=== PATIENT | male | born 1955 | race Caucasian/White ===

== ENCOUNTER 2021-02-20 09:24 | Inpatient (IN) | payer MEDICARE, BC ==
[2021-02-20] MEDS ORDERED: Sodium Chloride 0.9% 10 ML Syringe FLUSH PRN (09:55)
[2021-02-20] MEDS ORDERED: Albuterol/Ipratropium 3.0-0.5 MG/3 ML Neb Soln NEB ONE (09:56)
[2021-02-20] MEDS ORDERED: Sodium Chloride 0.9% 1,000 ML IV SCH (10:00)
--- NOTE | 2021-02-20 10:19 | EDM.PDOC ---
ED HPI GENERAL MEDICAL PROBLEM - General Chief Complaint: Respiratory Problem Stated Complaint: POSS COVID COUGH Time Seen by Provider: 02/20/21 09:32 Source of Information: Reports: Patient History Limitations: Reports: No Limitations - History of Present Illness INITIAL COMMENTS - FREE TEXT/NARRATIVE: The patient presents with possible COVID 19. He says last Tuesday he lost his sense of taste and smell. He also has been coughing and short of breath. He has generalized weakness. He has a history of asthma and hypercholesterolemia. He does not smoke. His oxygen saturations were in the mid 80s. He has no nausea, vomiting or diarrhea. He has no appetite though. Onset: Gradual Duration: Week(s): Severity: Moderate Improves with: Reports: None Worsens with: Reports: None Associated Symptoms: Reports: Cough, Fever/Chills, Headaches, Shortness of Breath. Denies: Nausea/Vomiting - Related Data Allergies Allergy/AdvReac Type Severity Reaction Status Date / Time No Known Allergies Allergy Verified 02/20/21 09:51 Home Meds: Home Meds Rosuvastatin [Crestor] 5 mg PO DAILY 02/20/21 [History] Past Medical History Cardiovascular History: Reports: High Cholesterol Respiratory History: Reports: Asthma Genitourinary History: Reports: Acute Renal Failure Social & Family History - Tobacco Use Tobacco Use Status *Q: Never Tobacco User Second Hand Smoke Exposure: No - Caffeine Use Caffeine Use: Reports: Coffee - Recreational Drug Use Recreational Drug Use: No ED ROS GENERAL - Review of Systems Review Of Systems: See Below Constitutional: Reports: Fever, Chills, Malaise, Weakness, Fatigue HEENT: Reports: No Symptoms Respiratory: Reports: Shortness of Breath, Cough Cardiovascular: Reports: No Symptoms Endocrine: Reports: Fatigue GI/Abdominal: Reports: Anorexia. Denies: Abdominal Pain, Diarrhea, Nausea, Vomiting : Reports: No Symptoms Musculoskeletal: Reports: No Symptoms ED EXAM, GENERAL - Physical Exam Exam: See Below Exam Limited By: No Limitations General Appearance: Alert, No Apparent Distress Ears: Normal External Exam Nose: Normal Inspection Head: Atraumatic, Normocephalic Neck: Normal Inspection Respiratory/Chest: No Respiratory Distress, Decreased Breath Sounds Cardiovascular: Regular Rate, Rhythm, No Edema, No Murmur GI/Abdominal: Soft, Non-Tender, No Organomegaly, No Mass Back Exam: Normal Inspection Extremities: Normal Inspection Neurological: Alert, Oriented, No Motor/Sensory Deficits #1 Interpretation EKG Date: 02/20/21 Time: 09:53 Rhythm: NSR Rate (Beats/Min): 97 [place]: Normal P-Wave: Present QRS: Normal ST-T: Normal QT: Normal Course - Vital Signs Last Recorded V/S: Last Vital Signs Temp 99.4 F 02/20/21 09:44 Pulse 101 H 02/20/21 09:44 Resp 15 02/20/21 09:44 BP 140/63 02/20/21 09:44 Pulse Ox 95 02/20/21 09:56 - Orders/Labs/Meds Orders: Active Orders 24 hr Category Date Time Status Cardiac Monitoring [RC] . DIRECTED Care 02/20/21 09:55 Active Oxygen Therapy [RC] PRN Care 02/20/21 09:55 Active Peripheral IV Care [RC] . DIRECTED Care 02/20/21 09:55 Active RT Aerosol Therapy [RC] ASDIRECTED Care 02/20/21 09:56 Active Remdesivir 200 mg Med 02/20/21 12:40 Active Sodium Chloride 0.9% [Normal Saline] 250 ml IV ONETIME Sodium Chloride 0.9% [Normal Saline] 1,000 ml Med 02/20/21 10:00 Active IV .BOLUS Sodium Chloride 0.9% [Saline Flush] Med 02/20/21 09:55 Active 10 ml FLUSH ASDIRECTED PRN Peripheral IV Insertion Adult [OM.PC] Stat Oth 02/20/21 09:55 Ordered Medication Orders Sodium Chloride (Normal Saline) 1,000 mls @ 1,000 mls/hr IV .BOLUS SUPRIYA Last Admin: 02/20/21 09:40 Dose: 1,000 mls/hr Documented by: EDWARD Remdesivir 200 mg/ Sodium (Chloride) 250 mls @ 250 mls/hr IV ONETIME ONE Stop: 02/20/21 13:39 Sodium Chloride (Sodium Chloride 0.9% 10 Ml Syringe) 10 ml FLUSH ASDIRECTED PRN PRN Reason: Keep Vein Open Last Admin: 02/20/21 09:40 Dose: 10 ml Documented by: EDWARD Labs: Laboratory Tests 02/20/21 02/20/21 02/20/21 Range/Units 09:40 09:45 09:45 WBC 6.16 (4.23-9.07) K/mm3 RBC 4.51 L (4.63-6.08) M/mm3 Hgb 14.3 D (13.7-17.5) gm/dl Hct 42.4 (40.1-51.0) % MCV 94.0 H (79.0-92.2) fl MCH 31.7 (25.7-32.2) pg MCHC 33.7 (32.2-35.5) g/dl RDW Std Deviation 40.6 (35.1-43.9) fL Plt Count 194 D (163-337) K/mm3 MPV 9.0 L (9.4-12.3) fl Neut % (Auto) 90.1 H (34.0-67.9) % Lymph % (Auto) 6.7 L (21.8-53.1) % [place] % (Auto) 2.9 L (5.3-12.2) % Eos % (Auto) 0 L (0.8-7.0) Baso % (Auto) 0.0 L (0.1-1.2) % Neut # (Auto) 5.55 H (1.78-5.38) K/mm3 Lymph # (Auto) 0.41 L (1.32-3.57) K/mm3 [place] # (Auto) 0.18 L (0.30-0.82) K/mm3 Eos # (Auto) 0.00 L (0.04-0.54) K/mm3 Baso # (Auto) 0.00 L (0.01-0.08) K/mm3 PT 11.3 (9.7-12.0) SECONDS INR 1.02 APTT 41.9 H (21.7-31.4) SECONDS D-Dimer, Quantitative 1.51 H (0.19-0.50) mg/L Sodium (136-145) mEq/L Potassium (3.5-5.1) mEq/L Chloride (98-107) mEq/L Carbon Dioxide (21-32) mEq/L Anion Gap (5-15) BUN (7-18) mg/dL Creatinine (0.7-1.3) mg/dL Est Cr Clr Drug Dosing mL/min Estimated GFR (MDRD) (>60) mL/min BUN/Creatinine Ratio (14-18) Glucose (70-99) mg/dL Lactic Acid (0.4-2.0) mmol/L Calcium (8.5-10.1) mg/dL Total Bilirubin (0.2-1.0) mg/dL AST (15-37) U/L ALT (16-63) U/L Alkaline Phosphatase (46-116) U/L Troponin I (0.00-0.056) ng/mL C-Reactive Protein (<1.0) mg/dL NT-Pro-B Natriuret Pep (0-125) pg/mL Total Protein (6.4-8.2) g/dl Albumin (3.4-5.0) g/dl Globulin gm/dL Albumin/Globulin Ratio (1-2) Influenza Type A RNA Negative (NEGATIVE) Influenza Type B RNA Negative (NEGATIVE) SARS-CoV-2 RNA (YOUSUF) Positive H (NEGATIVE) 02/20/21 02/20/21 02/20/21 Range/Units 09:45 09:45 10:34 WBC (4.23-9.07) K/mm3 RBC (4.63-6.08) M/mm3 Hgb (13.7-17.5) gm/dl Hct (40.1-51.0) % MCV (79.0-92.2) fl MCH (25.7-32.2) pg MCHC (32.2-35.5) g/dl RDW Std Deviation (35.1-43.9) fL Plt Count (163-337) K/mm3 MPV (9.4-12.3) fl Neut % (Auto) (34.0-67.9) % Lymph % (Auto) (21.8-53.1) % [place] % (Auto) (5.3-12.2) % Eos % (Auto) (0.8-7.0) Baso % (Auto) (0.1-1.2) % Neut # (Auto) (1.78-5.38) K/mm3 Lymph # (Auto) (1.32-3.57) K/mm3 [place] # (Auto) (0.30-0.82) K/mm3 Eos # (Auto) (0.04-0.54) K/mm3 Baso # (Auto) (0.01-0.08) K/mm3 PT (9.7-12.0) SECONDS INR APTT (21.7-31.4) SECONDS D-Dimer, Quantitative (0.19-0.50) mg/L Sodium 137 (136-145) mEq/L Potassium 3.7 (3.5-5.1) mEq/L Chloride 99 (98-107) mEq/L Carbon Dioxide 31 (21-32) mEq/L Anion Gap 10.7 (5-15) BUN 17 (7-18) mg/dL Creatinine 1.0 (0.7-1.3) mg/dL Est Cr Clr Drug Dosing 71.68 mL/min Estimated GFR (MDRD) > 60 (>60) mL/min BUN/Creatinine Ratio 17.0 (14-18) Glucose 206 H (70-99) mg/dL Lactic Acid 1.5 (0.4-2.0) mmol/L Calcium 8.0 L (8.5-10.1) mg/dL Total Bilirubin 0.9 (0.2-1.0) mg/dL AST 87 H (15-37) U/L ALT 97 H (16-63) U/L Alkaline Phosphatase 68 (46-116) U/L Troponin I < 0.017 (0.00-0.056) ng/mL C-Reactive Protein 15.3 H* (<1.0) mg/dL NT-Pro-B Natriuret Pep 222 H (0-125) pg/mL Total Protein 6.8 (6.4-8.2) g/dl Albumin 2.7 L (3.4-5.0) g/dl Globulin 4.1 gm/dL Albumin/Globulin Ratio 0.7 L (1-2) Influenza Type A RNA (NEGATIVE) Influenza Type B RNA (NEGATIVE) SARS-CoV-2 RNA (YOUSUF) (NEGATIVE) Meds: Medications Generic Name Dose Route Start Last Admin Trade Name Freq PRN Reason Stop Dose Admin Sodium Chloride 1,000 mls @ 1,000 mls/hr 02/20/21 10:00 02/20/21 09:40 Normal Saline IV 1,000 mls/hr .BOLUS SUPRIYA Administration Remdesivir 200 mg/ Sodium 250 mls @ 250 mls/hr 02/20/21 12:40 Chloride IV 02/20/21 13:39 ONETIME ONE Sodium Chloride 10 ml 02/20/21 09:55 02/20/21 09:40 Sodium Chloride 0.9% 10 Ml Syringe FLUSH 10 ml ASDIRECTED PRN Administration Keep Vein Open Discontinued Medications Generic Name Dose Route Start Last Admin Trade Name Freq PRN Reason Stop Dose Admin Albuterol/Ipratropium 3 ml 02/20/21 09:56 02/20/21 10:24 Albuterol/Ipratropium 3.0-0.5 Mg/3 Ml Neb Soln NEB 02/20/21 09:57 3 ml ONETIME ONE Administration Dexamethasone 6 mg 02/20/21 12:15 Dexamethasone 4 Mg/Ml Sdv IVPUSH 02/20/21 12:16 ONETIME ONE Methylprednisolone Sodium Succinate 125 mg 02/20/21 12:25 Methylprednisolone Sodium Succinate 125 Mg/2 Ml Sdv IVPUSH 02/20/21 12:26 ONETIME ONE - Re-Assessments/Exams Free Text/Narrative Re-Assessment/Exam: 02/20/21 10:18 I ordered oxygen, IV NS 1L bolus, duoneb X 1, EKG, CXR, labs and COVID. His EKG shows a NSR with no acute changes. 02/20/21 12:17 His EKG shows a NSR with no acute changes. His CXR shows patchy areas of increased density within both sides of the chest. Please rule out COVID pneum onia. Heart size is slightly enlarged. His CBC looks good. His D-dimer was elevated at 1.51. This is consistent with COVID pneumonia. His glucose was elevated at 206. His lactic acid is normal. His troponin is normal. His CRP is elevated at 15.3. His BNP is elevated slightly at 222. He is confirmed COVID positive. I ordered remdesivir 200mg IV and dexamethasone 6mg IV. I talked with our hospitalist Dr Forbes and he agreed to the admission. 02/20/21 12:26 He did want solu-medrol and not dexamethasone. I have changed the orders. Departure - Departure Time of Disposition: 12:30 Disposition: Admitted As Inpatient 64 Condition: Serious Clinical Impression: Pneumonia due to COVID-19 virus, Hypoxia - Discharge Information Referrals: Juan Manuel Jesus MD [Primary Care Provider] - Forms: ED Department Discharge Sepsis Event Note (ED) - Evaluation Sepsis Screening Result: No Definite Risk - Focused Exam Vital Signs: Vital Signs Temp Pulse Resp BP Pulse Ox Pulse Ox 02/20/21 09:56 95 02/20/21 09:44 99.4 F 101 H 15 140/63 94 L - My Orders Last 24 Hours: My Active Orders 02/20/21 09:55 Cardiac Monitoring [RC] . DIRECTED Oxygen Therapy [RC] PRN Peripheral IV Care [RC] . DIRECTED Sodium Chloride 0.9% [Saline Flush] 10 ml FLUSH ASDIRECTED PRN Peripheral IV Insertion Adult [OM.PC] Stat 02/20/21 09:56 RT Aerosol Therapy [RC] ASDIRECTED 02/20/21 10:00 Sodium Chloride 0.9% [Normal Saline] 1,000 ml IV .BOLUS 02/20/21 12:40 Remdesivir 200 mg Sodium Chloride 0.9% [Normal Saline] 250 ml IV ONETIME - Assessment/Plan Last 24 Hours: My Active Orders 02/20/21 09:55 Cardiac Monitoring [RC] . DIRECTED Oxygen Therapy [RC] PRN Peripheral IV Care [RC] . DIRECTED Sodium Chloride 0.9% [Saline Flush] 10 ml FLUSH ASDIRECTED PRN Peripheral IV Insertion Adult [OM.PC] Stat 02/20/21 09:56 RT Aerosol Therapy [RC] ASDIRECTED 02/20/21 10:00 Sodium Chloride 0.9% [Normal Saline] 1,000 ml IV .BOLUS 02/20/21 12:40 Remdesivir 200 mg Sodium Chloride 0.9% [Normal Saline] 250 ml IV ONETIME
--- NOTE | 2021-02-20 10:44 | CR ---
Chest: Portable view of the chest was obtained. Comparison: No prior chest imaging is available. Heart is felt to be slightly enlarged. Tortuous thoracic aorta is noted. Patchy areas of increased density are noted within both sides of the chest. Slight degenerative change is scattered within the spine. Impression: 1. Patchy areas of increased density within both side of the chest. Please rule out COVID pneumonia. 2. Heart size is slightly enlarged. Diagnostic code #3
[2021-02-20 11:18] LABS: CORONAVIRUS COVID-19 NAA POSITIVE (NEGATIVE)
[2021-02-20] MEDS ORDERED: Dexamethasone 4 MG/ML SDV IVPUSH ONE (12:15)
[2021-02-20] MEDS ORDERED: methylPREDNISolone Sodium Succinate 125 MG/2 ML SDV IVPUSH ONE (12:25)
[2021-02-20] MEDS ORDERED: REMDESIVIR 200 MG in Sodium Chloride 0.9% 250 ML IV ONE (12:40)
--- NOTE | 2021-02-20 13:01 | PCM.HP.2 ---
H&P History of Present Illness - General Date of Service: 02/20/21 Admit Problem/Dx: Admission Diagnosis/Problem Admission Diagnosis/Problem Hypoxia Source of Information: Patient, Provider History Limitations: Reports: No Limitations - History of Present Illness Initial Comments - Free Text/Narative: Patient is a 65-year-old male with a past medical history as listed below which does include asthma who presents to the emergency department with a chief complaint of low oxygen at home. Patient states that he began to lose his sense of taste and smell roughly a week to a week and a half ago. At that point it was his only symptom. Since then he has gradually felt some heavy breathing at times mostly with activity. He has denied any chest pain, chest pressure or ple urisy. No abdominal complaints. No changes in eating habits or bowel habits. No recent sick contacts or travel. The patient is unvaccinated against COVID- 19. He has also experienced a rather dry cough and feels as if there is phlegm present but is simply incapable of coughing it up. He bought an oximeter earlier in the week and it was noted that despite his shortness of breath he was still having O2 saturations in the mid 90s. Yesterday it dropped to 91, and then today upon check he was found to be in the mid 80s. At that point he thought it best to present to the hospital for further evaluation. In the ER it was confirmed that he was COVID-19 positive. Chest x-ray was notable for bilateral infiltrates consistent with COVID-19. The patient was hypoxic and was requiring 2 to 3 L of supplemental oxygen to stay above 92%. He was not toxic appearing. Remdesivir and steroids were introduced in the emergency department before being referred to the internal medicine service for further management. A 14 point review of systems was reviewed with the patient entirely and only pertinent for the above information. CODE STATUS: Full code. - Related Data Allergies/Adverse Reactions: Allergies Allergy/AdvReac Type Severity Reaction Status Date / Time No Known Allergies Allergy Verified 02/20/21 09:51 Home Medications: Home Meds Rosuvastatin [Crestor] 5 mg PO DAILY 02/20/21 [History] Past Medical History Cardiovascular History: Reports: High Cholesterol Respiratory History: Reports: Asthma Genitourinary History: Reports: Acute Renal Failure Social & Family History - Tobacco Use Tobacco Use Status *Q: Never Tobacco User Second Hand Smoke Exposure: No - Caffeine Use Caffeine Use: Reports: Coffee - Recreational Drug Use Recreational Drug Use: No H&P Review of Systems - Review of Systems: Review Of Systems: Comprehensive ROS is negative, except as noted in HPI. Exam - Exam Exam: See Below - Vital Signs Vital Signs: Last Vital Signs Temp 99.4 F 02/20/21 09:44 Pulse 101 H 02/20/21 09:44 Resp 15 02/20/21 09:44 BP 140/63 02/20/21 09:44 Pulse Ox 95 02/20/21 09:56 Weight: 208 lb - Exam Physical Exam Comments:: General: Awake and alert, in no apparent distress. Nontoxic-appearing. HEENT: Normocephalic, atraumatic. Extra ocular muscles intact. Pupils equal and reactive to light. Nares are patent. Oropharynx clear without erythema or exudate. Tongue is midline. Wearing nasal cannula oxygen Neck: Supple without lymphadenopathy. No goiter. Trachea midline. Heart: Regular rate and rhythm. S1 and S2 heard without murmur or extrasystoles. Lungs: Diminished breath sounds but no obvious wheezing, rales or rhonchi. Nonproductive cough during interview Abdomen: Soft, nontender, nondistended. Positive bowel sounds. No CVA tenderness. No suprapubic tenderness. Extremities: Warm and perfused. No clubbing, cyanosis, or edema. Integument: No obvious rash or jaundice. No lymphadenopathy. Neurologic: Cranial nerves II through XII grossly intact. No obvious gross motor or sensory deficits. Psychiatric: Normal mood and affect. - Patient Data Lab Results Last 24 hrs: Laboratory Results - last 24 hr 02/20/21 02/20/21 02/20/21 Range/Units 09:40 09:45 09:45 WBC 6.16 (4.23-9.07) K/mm3 RBC 4.51 L (4.63-6.08) M/mm3 Hgb 14.3 D (13.7-17.5) gm/dl Hct 42.4 (40.1-51.0) % MCV 94.0 H (79.0-92.2) fl MCH 31.7 (25.7-32.2) pg MCHC 33.7 (32.2-35.5) g/dl RDW Std Deviation 40.6 (35.1-43.9) fL Plt Count 194 D (163-337) K/mm3 MPV 9.0 L (9.4-12.3) fl Neut % (Auto) 90.1 H (34.0-67.9) % Lymph % (Auto) 6.7 L (21.8-53.1) % [place] % (Auto) 2.9 L (5.3-12.2) % Eos % (Auto) 0 L (0.8-7.0) Baso % (Auto) 0.0 L (0.1-1.2) % Neut # (Auto) 5.55 H (1.78-5.38) K/mm3 Lymph # (Auto) 0.41 L (1.32-3.57) K/mm3 [place] # (Auto) 0.18 L (0.30-0.82) K/mm3 Eos # (Auto) 0.00 L (0.04-0.54) K/mm3 Baso # (Auto) 0.00 L (0.01-0.08) K/mm3 PT 11.3 (9.7-12.0) SECONDS INR 1.02 APTT 41.9 H (21.7-31.4) SECONDS D-Dimer, Quantitative 1.51 H (0.19-0.50) mg/L Sodium (136-145) mEq/L Potassium (3.5-5.1) mEq/L Chloride (98-107) mEq/L Carbon Dioxide (21-32) mEq/L Anion Gap (5-15) BUN (7-18) mg/dL Creatinine (0.7-1.3) mg/dL Est Cr Clr Drug Dosing mL/min Estimated GFR (MDRD) (>60) mL/min BUN/Creatinine Ratio (14-18) Glucose (70-99) mg/dL Lactic Acid (0.4-2.0) mmol/L Calcium (8.5-10.1) mg/dL Total Bilirubin (0.2-1.0) mg/dL AST (15-37) U/L ALT (16-63) U/L Alkaline Phosphatase (46-116) U/L Troponin I (0.00-0.056) ng/mL C-Reactive Protein (<1.0) mg/dL NT-Pro-B Natriuret Pep (0-125) pg/mL Total Protein (6.4-8.2) g/dl Albumin (3.4-5.0) g/dl Globulin gm/dL Albumin/Globulin Ratio (1-2) Influenza Type A RNA Negative (NEGATIVE) Influenza Type B RNA Negative (NEGATIVE) SARS-CoV-2 RNA (YOUSUF) Positive H (NEGATIVE) 02/20/21 02/20/21 02/20/21 Range/Units 09:45 09:45 10:34 WBC (4.23-9.07) K/mm3 RBC (4.63-6.08) M/mm3 Hgb (13.7-17.5) gm/dl Hct (40.1-51.0) % MCV (79.0-92.2) fl MCH (25.7-32.2) pg MCHC (32.2-35.5) g/dl RDW Std Deviation (35.1-43.9) fL Plt Count (163-337) K/mm3 MPV (9.4-12.3) fl Neut % (Auto) (34.0-67.9) % Lymph % (Auto) (21.8-53.1) % [place] % (Auto) (5.3-12.2) % Eos % (Auto) (0.8-7.0) Baso % (Auto) (0.1-1.2) % Neut # (Auto) (1.78-5.38) K/mm3 Lymph # (Auto) (1.32-3.57) K/mm3 [place] # (Auto) (0.30-0.82) K/mm3 Eos # (Auto) (0.04-0.54) K/mm3 Baso # (Auto) (0.01-0.08) K/mm3 PT (9.7-12.0) SECONDS INR APTT (21.7-31.4) SECONDS D-Dimer, Quantitative (0.19-0.50) mg/L Sodium 137 (136-145) mEq/L Potassium 3.7 (3.5-5.1) mEq/L Chloride 99 (98-107) mEq/L Carbon Dioxide 31 (21-32) mEq/L Anion Gap 10.7 (5-15) BUN 17 (7-18) mg/dL Creatinine 1.0 (0.7-1.3) mg/dL Est Cr Clr Drug Dosing 71.68 mL/min Estimated GFR (MDRD) > 60 (>60) mL/min BUN/Creatinine Ratio 17.0 (14-18) Glucose 206 H (70-99) mg/dL Lactic Acid 1.5 (0.4-2.0) mmol/L Calcium 8.0 L (8.5-10.1) mg/dL Total Bilirubin 0.9 (0.2-1.0) mg/dL AST 87 H (15-37) U/L ALT 97 H (16-63) U/L Alkaline Phosphatase 68 (46-116) U/L Troponin I < 0.017 (0.00-0.056) ng/mL C-Reactive Protein 15.3 H* (<1.0) mg/dL NT-Pro-B Natriuret Pep 222 H (0-125) pg/mL Total Protein 6.8 (6.4-8.2) g/dl Albumin 2.7 L (3.4-5.0) g/dl Globulin 4.1 gm/dL Albumin/Globulin Ratio 0.7 L (1-2) Influenza Type A RNA (NEGATIVE) Influenza Type B RNA (NEGATIVE) SARS-CoV-2 RNA (YOU[facility]F) (NEGATIVE) Result Diagrams: 02/20/21 09:45 02/20/21 09:45 Imaging Impressions Last 24 hrs: Chest x-ray personally reviewed. Formal reading pending. Bilateral intersti tial infiltrates consistent with COVID-19 pneumonitis. Sepsis Event Note - Evaluation Sepsis Screening Result: No Definite Risk - Focused Exam Vital Signs: Vital Signs Temp Pulse Resp BP Pulse Ox Pulse Ox 02/20/21 09:56 95 02/20/21 09:44 99.4 F 101 H 15 140/63 94 L Problem List Initiated/Reviewed/Updated: Yes Orders Last 24hrs: Active Orders 24 hr Category Date Time Status Patient Status [ADT] Routine ADT 02/20/21 12:42 Active Cardiac Monitoring [RC] . DIRECTED Care 02/20/21 09:55 Active Nurse Communication: Isolation [RC] ASDIRECTED Care 02/20/21 12:51 Ordered Oxygen Therapy [RC] PRN Care 02/20/21 09:55 Active Oxygen Therapy [RC] PRN Care 02/20/21 12:42 Active Peripheral IV Care [RC] . DIRECTED Care 02/20/21 09:55 Active Pulse Oximetry [RC] CONTINUOUS Care 02/20/21 12:44 Active RT Aerosol Therapy [RC] ASDIRECTED Care 02/20/21 09:56 Active RT Aerosol Therapy [RC] ASDIRECTED Care 02/20/21 12:54 Ordered Up ad [place] [RC] ASDIRECTED Care 02/20/21 12:42 Active VTE/DVT Education [RC] PER UNIT ROUTINE Care 02/20/21 12:42 Active Vital Signs [RC] Q4H Care 02/20/21 12:42 Active Respiratory Care Assess and Treatment [CONS] Routine Cons 02/20/21 12:45 Active Regular Diet [DIET] Diet 02/20/21 Dinner Active CBC WITH AUTO DIFF [HEME] DAILY Lab 02/21/21 05:00 Ordered CBC WITH AUTO DIFF [HEME] DAILY Lab 02/22/21 05:00 Ordered CBC WITH AUTO DIFF [HEME] DAILY Lab 02/23/21 05:00 Ordered COMPREHENSIVE METABOLIC PN,CMP [CHEM] DAILY Lab 02/21/21 05:00 Ordered COMPREHENSIVE METABOLIC PN,CMP [CHEM] DAILY Lab 02/22/21 05:00 Ordered COMPREHENSIVE METABOLIC PN,CMP [CHEM] DAILY Lab 02/23/21 05:00 Ordered FERRITIN [CHEM] Routine Lab 02/20/21 12:46 Ordered LACTATE DEHYDROGENASE,LDH [CHEM] Routine Lab 02/20/21 12:46 Ordered PROCALCITONIN [REF] Routine Lab 02/20/21 12:46 Ordered Acetaminophen [TylenoL] Med 02/20/21 12:46 Ordered 650 mg PO Q4H PRN Albuterol/Ipratropium [DuoNeb 3.0-0.5 MG/3 ML] Med 02/20/21 12:54 Ordered 3 ml NEB Q4HRRT PRN Ascorbic Acid [Vitamin C] Med 02/20/21 21:00 Ordered 500 mg PO BID Remdesivir 100 mg Med 02/21/21 13:00 Ordered Sodium Chloride 0.9% [Normal Saline] 100 ml IV Q24H Rosuvastatin Med 02/21/21 09:00 Ordered 5 mg PO DAILY Sodium Chloride 0.9% [Normal Saline] 1,000 ml Med 02/20/21 10:00 Active IV .BOLUS Sodium Chloride 0.9% [Saline Flush] Med 02/20/21 09:55 Active 10 ml FLUSH ASDIRECTED PRN Zinc Sulfate [Zincate] Med 02/21/21 09:00 Ordered 220 mg PO DAILY methylPREDNISolone Sod Succ [Solu-MEDROL] Med 02/20/21 13:00 Ordered 40 mg IVPUSH Q6H Isolation [COMM] Stat Oth 02/20/21 12:46 Ordered Peripheral IV Insertion Adult [OM.PC] Stat Oth 02/20/21 09:55 Ordered Resuscitation Status Routine Resus Stat 02/20/21 12:42 Ordered Medication Orders Acetaminophen (Acetaminophen 325 Mg Tab) 650 mg PO Q4H PRN PRN Reason: Fever Greater Than 101 Albuterol/Ipratropium (Albuterol/Ipratropium 3.0-0.5 Mg/3 Ml Neb Soln) 3 ml NEB Q4HRRT PRN PRN Reason: Shortness of Breath Ascorbic Acid (Ascorbic Acid 500 Mg Tab) 500 mg PO BID SUPRIYA Sodium Chloride (Normal Saline) 1,000 mls @ 1,000 mls/hr IV .BOLUS SUPRIYA Last Admin: 02/20/21 09:40 Dose: 1,000 mls/hr Documented by: EDWARD Remdesivir 100 mg/ Sodium (Chloride) 100 mls @ 100 mls/hr IV Q24H SUPRIYA Stop: 02/24/21 13:59 Methylprednisolone Sodium Succinate (Methylprednisolone Sodium Succinate 40 Mg/1 Ml Sdv) 40 mg IVPUSH Q6H SUPRIYA Non-Formulary Medication (Rosuvastatin) 5 mg PO DAILY SUPRIYA Sodium Chloride (Sodium Chloride 0.9% 10 Ml Syringe) 10 ml FLUSH ASDIRECTED PRN PRN Reason: Keep Vein Open Last Admin: 02/20/21 09:40 Dose: 10 ml Documented by: EDWARD Zinc Sulfate (Zinc Sulfate 220 Mg Cap) 220 mg PO DAILY SUPRIYA Assessment/Plan Comment:: 65-year-old male with a past medical history as listed above who presents to the emergency department with a chief complaint of low oxygen on his oximeter; found to be COVID-19 positive. 1. Acute hypoxic respiratory failure in the setting of COVID-19. Admit to the hospitalist service for further management. Continue supplemental oxygen as needed and wean as tolerated or advance as tolerated. RT consult. Continue high-dose Solu-Medrol. Remdesivir protocol. Continue vitamin supplements with vitamin C and zinc. Depending on his clinical course will evaluate for monoclonal antibodies/DMARDs. Encourage proning Incentive spirometry encouraged. Bronchodilators as necessary. 2. Hyperglycemia. We will check hemoglobin A1c. Invoke hospital hyperglycemia protocol if found to be diabetic. All other medical comorbidities are stable and nonactive conditions, will continue home medications at regular dose. CODE STATUS: Full code. DVT prophylaxis with enoxaparin. - Mortality Measure Prognosis:: Good
[2021-02-20] MEDS: methylPREDNISolone Sodium Succinate 40 MG/1 ML SDV IVPUSH SCH ×2 (14:18→18:02)
[2021-02-20] MEDS: Enoxaparin 40 MG/0.4 ML Syringe SUBCUT SCH (14:18)
[2021-02-20 14:51] LABS: HEMOGLOBIN A1C 6.3 %
[2021-02-20] MEDS: Insulin Lispro 100 Unit/ML 3 ML KwikPen SUBCUT SCH ×3 (18:03→22:00)
[2021-02-20] MEDS: Ascorbic Acid 500 MG Tab PO SCH (20:31)
[2021-02-20] MEDS: Albuterol/Ipratropium 3.0-0.5 MG/3 ML Neb Soln NEB PRN (20:43)
[2021-02-21] MEDS: methylPREDNISolone Sodium Succinate 40 MG/1 ML SDV IVPUSH SCH ×4 (00:42→19:36)
[2021-02-21] MEDS: Albuterol/Ipratropium 3.0-0.5 MG/3 ML Neb Soln NEB PRN ×3 (05:53→20:28)
[2021-02-21] MEDS: Ascorbic Acid 500 MG Tab PO SCH ×2 (08:16→20:53)
[2021-02-21] MEDS: Rosuvastatin 10 MG Tab PO SCH (08:17)
[2021-02-21] MEDS: Zinc Sulfate 220 MG Cap PO SCH (08:17)
[2021-02-21] MEDS: Insulin Lispro 100 Unit/ML 3 ML KwikPen SUBCUT SCH ×4 (08:18→21:38)
[2021-02-21] MEDS: Enoxaparin 40 MG/0.4 ML Syringe SUBCUT SCH (08:20)
[2021-02-21] MEDS: REMDESIVIR 100 MG in Sodium Chloride 0.9% 100 ML IV SCH (13:07)
--- NOTE | 2021-02-21 16:58 | PCM.PN ---
- General Info Date of Service: 02/21/21 Admission Dx/Problem (Free Text): Admission Diagnosis/Problem Admission Diagnosis/Problem Hypoxia Subjective Update: Patient does not seem to improve or get worse. Denies of fever, chills, nausea, vomiting, or diarrhea He is now on 5 L. D-dimer 1.51 Creatinine 0.8 - Review of Systems Systems Review Comment:: Positive for shortness of breath and decreased sense of taste and smell. All other systems were reviewed and negative. - Patient Data Vitals - Most Recent: Last Vital Signs Temp 36.4 C 02/21/21 13:05 Pulse 77 02/21/21 13:05 Resp 21 H 02/21/21 13:05 BP 128/76 02/21/21 13:05 Pulse Ox 88 L 02/21/21 13:05 Weight - Most Recent: 91.989 kg I&O - Last 24 Hours: Intake & Output 02/21/21 02/21/21 02/21/21 06:59 14:59 22:59 Intake Total 400 Balance 400 Lab Results Last 24 Hours: Laboratory Results - last 24 hr 02/20/21 02/20/21 02/21/21 Range/Units 09:45 20:24 04:56 WBC 5.69 (4.23-9.07) K/mm3 RBC 4.70 (4.63-6.08) M/mm3 Hgb 14.6 (13.7-17.5) gm/dl Hct 43.8 (40.1-51.0) % MCV 93.2 H (79.0-92.2) fl MCH 31.1 (25.7-32.2) pg MCHC 33.3 (32.2-35.5) g/dl RDW Std Deviation 40.5 (35.1-43.9) fL Plt Count 216 (163-337) K/mm3 MPV 9.3 L (9.4-12.3) fl Neut % (Auto) 87.4 H (34.0-67.9) % Lymph % (Auto) 8.3 L (21.8-53.1) % [place] % (Auto) 3.7 L (5.3-12.2) % Eos % (Auto) 0 L (0.8-7.0) Baso % (Auto) 0.4 (0.1-1.2) % Neut # (Auto) 4.98 (1.78-5.38) K/mm3 Lymph # (Auto) 0.47 L (1.32-3.57) K/mm3 [place] # (Auto) 0.21 L (0.30-0.82) K/mm3 Eos # (Auto) 0.00 L (0.04-0.54) K/mm3 Baso # (Auto) 0.02 (0.01-0.08) K/mm3 Manual Slide Review Normal smear Sodium (136-145) mEq/L Potassium (3.5-5.1) mEq/L Chloride (98-107) mEq/L Carbon Dioxide (21-32) mEq/L Anion Gap (5-15) BUN (7-18) mg/dL Creatinine (0.7-1.3) mg/dL Est Cr Clr Drug Dosing mL/min Estimated GFR (MDRD) (>60) mL/min BUN/Creatinine Ratio (14-18) Glucose (70-99) mg/dL POC Glucose 221 H (70-99) mg/dL Calcium (8.5-10.1) mg/dL Total Bilirubin (0.2-1.0) mg/dL AST (15-37) U/L ALT (16-63) U/L Alkaline Phosphatase (46-116) U/L Total Protein (6.4-8.2) g/dl Albumin (3.4-5.0) g/dl Globulin gm/dL Albumin/Globulin Ratio (1-2) Procalcitonin 0.15 H ng/mL 02/21/21 02/21/21 02/21/21 Range/Units 04:56 06:59 11:41 WBC (4.23-9.07) K/mm3 RBC (4.63-6.08) M/mm3 Hgb (13.7-17.5) gm/dl Hct (40.1-51.0) % MCV (79.0-92.2) fl MCH (25.7-32.2) pg MCHC (32.2-35.5) g/dl RDW Std Deviation (35.1-43.9) fL Plt Count (163-337) K/mm3 MPV (9.4-12.3) fl Neut % (Auto) (34.0-67.9) % Lymph % (Auto) (21.8-53.1) % [place] % (Auto) (5.3-12.2) % Eos % (Auto) (0.8-7.0) Baso % (Auto) (0.1-1.2) % Neut # (Auto) (1.78-5.38) K/mm3 Lymph # (Auto) (1.32-3.57) K/mm3 [place] # (Auto) (0.30-0.82) K/mm3 Eos # (Auto) (0.04-0.54) K/mm3 Baso # (Auto) (0.01-0.08) K/mm3 Manual Slide Review Sodium 137 (136-145) mEq/L Potassium 4.8 (3.5-5.1) mEq/L Chloride 99 (98-107) mEq/L Carbon Dioxide 31 (21-32) mEq/L Anion Gap 11.8 (5-15) BUN 19 H (7-18) mg/dL Creatinine 0.8 (0.7-1.3) mg/dL Est Cr Clr Drug Dosing 89.60 mL/min Estimated GFR (MDRD) > 60 (>60) mL/min BUN/Creatinine Ratio 23.8 H (14-18) Glucose 187 H (70-99) mg/dL POC Glucose 198 H 176 H (70-99) mg/dL Calcium 7.7 L (8.5-10.1) mg/dL Total Bilirubin 0.8 (0.2-1.0) mg/dL AST 116 H (15-37) U/L ALT 149 H (16-63) U/L Alkaline Phosphatase 73 (46-116) U/L Total Protein 6.2 L (6.4-8.2) g/dl Albumin 2.6 L (3.4-5.0) g/dl Globulin 3.6 gm/dL Albumin/Globulin Ratio 0.7 L (1-2) Procalcitonin ng/mL Med Orders - Current: Current Medications Acetaminophen (Acetaminophen 325 Mg Tab) 650 mg PO Q4H PRN PRN Reason: Fever Greater Than 101 Albuterol/Ipratropium (Albuterol/Ipratropium 3.0-0.5 Mg/3 Ml Neb Soln) 3 ml NEB Q4HRRT PRN PRN Reason: Shortness of Breath Last Admin: 02/21/21 08:47 Dose: 3 ml Documented by: Ascorbic Acid (Ascorbic Acid 500 Mg Tab) 500 mg PO BID [facility] Last Admin: 02/21/21 08:16 Dose: 500 mg Documented by: Enoxaparin Sodium (Enoxaparin 40 Mg/0.4 Ml Syringe) 40 mg SUBCUT DAILY [facility] Last Admin: 02/21/21 08:20 Dose: 40 mg Documented by: Remdesivir 100 mg/ Sodium (Chloride) 100 mls @ 100 mls/hr IV Q24H [facility] Stop: 02/24/21 13:59 Last Admin: 02/21/21 13:07 Dose: 100 mls/hr Documented by: Insulin Human Lispro (Insulin Lispro 100 Unit/Ml 3 Ml Kwikpen) 0 unit SUBCUT QIDACANDBED [facility]; Protocol Last Admin: 02/21/21 13:12 Dose: 2 units Documented by: Methylprednisolone Sodium Succinate (Methylprednisolone Sodium Succinate 40 Mg/1 Ml Sdv) 40 mg IVPUSH Q6H [facility] Last Admin: 02/21/21 13:08 Dose: 40 mg Documented by: Rosuvastatin Calcium (Rosuvastatin 10 Mg Tab) 5 mg PO DAILY [facility] Last Admin: 02/21/21 08:17 Dose: 5 mg Documented by: Sodium Chloride (Sodium Chloride 0.9% 10 Ml Syringe) 10 ml FLUSH ASDIRECTED PRN PRN Reason: Keep Vein Open Last Admin: 02/20/21 09:40 Dose: 10 ml Documented by: Zinc Sulfate (Zinc Sulfate 220 Mg Cap) 220 mg PO DAILY [facility] Last Admin: 02/21/21 08:17 Dose: 220 mg Documented by: Discontinued Medications Albuterol/Ipratropium (Albuterol/Ipratropium 3.0-0.5 Mg/3 Ml Neb Soln) 3 ml NEB ONETIME ONE Stop: 02/20/21 09:57 Last Admin: 02/20/21 10:24 Dose: 3 ml Documented by: Dexamethasone (Dexamethasone 4 Mg/Ml Sdv) 6 mg IVPUSH ONETIME ONE Stop: 02/20/21 12:16 Last Admin: 02/20/21 15:34 Dose: Not Given Documented by: Sodium Chloride (Normal Saline) 1,000 mls @ 1,000 mls/hr IV .BOLUS [facility] Last Admin: 02/20/21 09:40 Dose: 1,000 mls/hr Documented by: Remdesivir 200 mg/ Sodium (Chloride) 250 mls @ 250 mls/hr IV ONETIME ONE Stop: 02/20/21 13:39 Last Admin: 02/20/21 12:47 Dose: 250 mls/hr Documented by: Methylprednisolone Sodium Succinate (Methylprednisolone Sodium Succinate 125 Mg/2 Ml Sdv) 125 mg IVPUSH ONETIME ONE Stop: 02/20/21 12:26 Last Admin: 02/20/21 12:45 Dose: 125 mg Documented by: - Exam General: Alert, Oriented, Cooperative HEENT: Pupils Equal, Pupils Reactive, EOMI Neck: Supple, Trachea Midline, No JVD, No Thyromegaly Lungs: Normal Respiratory Effort, Decreased Breath Sounds GI/Abdominal Exam: Normal Bowel Sounds, Soft, Non-Tender, No Organomegaly Extremities: Normal Inspection, Normal Range of Motion, Non-Tender, No Pedal Efe ma Skin: Warm, Dry, Intact Neurological: No New Focal Deficit, Normal Speech, Normal Tone, Strength Equal Bilateral, Reflexes Equal Bilateral, Sensation Intact Psy/Mental Status: Alert, Normal Affect, Normal Mood - Patient Data Lab Results Last 24 hrs: Laboratory Results - last 24 hr 02/20/21 02/20/21 02/21/21 Range/Units 09:45 20:24 04:56 WBC 5.69 (4.23-9.07) K/mm3 RBC 4.70 (4.63-6.08) M/mm3 Hgb 14.6 (13.7-17.5) gm/dl Hct 43.8 (40.1-51.0) % MCV 93.2 H (79.0-92.2) fl MCH 31.1 (25.7-32.2) pg MCHC 33.3 (32.2-35.5) g/dl RDW Std Deviation 40.5 (35.1-43.9) fL Plt Count 216 (163-337) K/mm3 MPV 9.3 L (9.4-12.3) fl Neut % (Auto) 87.4 H (34.0-67.9) % Lymph % (Auto) 8.3 L (21.8-53.1) % [place] % (Auto) 3.7 L (5.3-12.2) % Eos % (Auto) 0 L (0.8-7.0) Baso % (Auto) 0.4 (0.1-1.2) % Neut # (Auto) 4.98 (1.78-5.38) K/mm3 Lymph # (Auto) 0.47 L (1.32-3.57) K/mm3 [place] # (Auto) 0.21 L (0.30-0.82) K/mm3 Eos # (Auto) 0.00 L (0.04-0.54) K/mm3 Baso # (Auto) 0.02 (0.01-0.08) K/mm3 Manual Slide Review Normal smear Sodium (136-145) mEq/L Potassium (3.5-5.1) mEq/L Chloride (98-107) mEq/L Carbon Dioxide (21-32) mEq/L Anion Gap (5-15) BUN (7-18) mg/dL Creatinine (0.7-1.3) mg/dL Est Cr Clr Drug Dosing mL/min Estimated GFR (MDRD) (>60) mL/min BUN/Creatinine Ratio (14-18) Glucose (70-99) mg/dL POC Glucose 221 H (70-99) mg/dL Calcium (8.5-10.1) mg/dL Total Bilirubin (0.2-1.0) mg/dL AST (15-37) U/L ALT (16-63) U/L Alkaline Phosphatase (46-116) U/L Total Protein (6.4-8.2) g/dl Albumin (3.4-5.0) g/dl Globulin gm/dL Albumin/Globulin Ratio (1-2) Procalcitonin 0.15 H ng/mL 02/21/21 02/21/21 02/21/21 Range/Units 04:56 06:59 11:41 WBC (4.23-9.07) K/mm3 RBC (4.63-6.08) M/mm3 Hgb (13.7-17.5) gm/dl Hct (40.1-51.0) % MCV (79.0-92.2) fl MCH (25.7-32.2) pg MCHC (32.2-35.5) g/dl RDW Std Deviation (35.1-43.9) fL Plt Count (163-337) K/mm3 MPV (9.4-12.3) fl Neut % (Auto) (34.0-67.9) % Lymph % (Auto) (21.8-53.1) % [place] % (Auto) (5.3-12.2) % Eos % (Auto) (0.8-7.0) Baso % (Auto) (0.1-1.2) % Neut # (Auto) (1.78-5.38) K/mm3 Lymph # (Auto) (1.32-3.57) K/mm3 [place] # (Auto) (0.30-0.82) K/mm3 Eos # (Auto) (0.04-0.54) K/mm3 Baso # (Auto) (0.01-0.08) K/mm3 Manual Slide Review Sodium 137 (136-145) mEq/L Potassium 4.8 (3.5-5.1) mEq/L Chloride 99 (98-107) mEq/L Carbon Dioxide 31 (21-32) mEq/L Anion Gap 11.8 (5-15) BUN 19 H (7-18) mg/dL Creatinine 0.8 (0.7-1.3) mg/dL Est Cr Clr Drug Dosing 89.60 mL/min Estimated GFR (MDRD) > 60 (>60) mL/min BUN/Creatinine Ratio 23.8 H (14-18) Glucose 187 H (70-99) mg/dL POC Glucose 198 H 176 H (70-99) mg/dL Calcium 7.7 L (8.5-10.1) mg/dL Total Bilirubin 0.8 (0.2-1.0) mg/dL AST 116 H (15-37) U/L ALT 149 H (16-63) U/L Alkaline Phosphatase 73 (46-116) U/L Total Protein 6.2 L (6.4-8.2) g/dl Albumin 2.6 L (3.4-5.0) g/dl Globulin 3.6 gm/dL Albumin/Globulin Ratio 0.7 L (1-2) Procalcitonin ng/mL Result Diagrams: 02/21/21 04:56 02/21/21 04:56 Sepsis Event Note - Evaluation Sepsis Screening Result: No Definite Risk - Focused Exam Vital Signs: Vital Signs Temp Pulse Resp BP Pulse Ox Pulse Ox 02/21/21 13:05 36.4 C 77 21 H 128/76 88 L 02/21/21 08:53 92 L 02/21/21 08:47 91 L 02/21/21 08:29 85 84 L 02/21/21 08:19 36.7 C 81 19 130/65 82 L 02/21/21 05:56 91 L 02/21/21 05:12 36.4 C 73 24 H 142/92 H 87 L - Problem List Review Problem List Initiated/Reviewed/Updated: Yes - Plan Plan:: Patient is a 65-year-old male with a past medical history as listed below which does include asthma who presents to the emergency department with a chief complaint of low oxygen at home. Patient states that he began to lose his sense of taste and smell roughly a week to a week and a half ago before admission on 02/20. In the ER it was confirmed that he was COVID-19 positive. 1. Acute hypoxic respiratory failure in the setting of COVID-19. Admit to the hospitalist service for further management. Continue supplemental oxygen as needed and wean as tolerated or advance as tolerated. Keep oxygen saturation greater than 90 % at all times RT consult. Continue Solu-Medrol 40 mg every 6 hours. Remdesivir protocol. Lovenox 90 mg twice daily Continue vitamin supplements with vitamin C and zinc. Depending on his clinical course will evaluate for monoclonal antibodies/DMARDs. Encourage proning Incentive spirometry encouraged. Bronchodilators as necessary. 2. Hyperglycemia. hemoglobin A1c 6.3 Invoke hospital hyperglycemia protocol if found to be diabetic. All other medical comorbidities are stable and nonactive conditions, will continue home medications at regular dose. CODE STATUS: Full code. DVT prophylaxis with enoxaparin.
[2021-02-21] MEDS: Enoxaparin 100 MG/1 ML Syringe SUBCUT SCH (20:53)
[2021-02-22] MEDS: methylPREDNISolone Sodium Succinate 40 MG/1 ML SDV IVPUSH SCH ×2 (01:32→06:41)
[2021-02-22] MEDS: Acetaminophen 325 MG Tab PO PRN (02:01)
[2021-02-22] MEDS: Rosuvastatin 10 MG Tab PO SCH (08:34)
[2021-02-22] MEDS: Zinc Sulfate 220 MG Cap PO SCH (08:35)
[2021-02-22] MEDS: Enoxaparin 100 MG/1 ML Syringe SUBCUT SCH ×2 (08:35→20:12)
[2021-02-22] MEDS: Ascorbic Acid 500 MG Tab PO SCH ×2 (08:35→20:12)
[2021-02-22] MEDS: Insulin Lispro 100 Unit/ML 3 ML KwikPen SUBCUT SCH ×4 (08:37→21:20)
[2021-02-22] MEDS: Albuterol/Ipratropium 3.0-0.5 MG/3 ML Neb Soln NEB PRN ×2 (09:22→19:56)
[2021-02-22] MEDS: REMDESIVIR 100 MG in Sodium Chloride 0.9% 100 ML IV SCH (12:28)
[2021-02-22] MEDS: methylPREDNISolone Sodium Succinate 125 MG/2 ML SDV IVPUSH SCH ×2 (12:56→17:59)
--- NOTE | 2021-02-22 13:51 | PCM.PN ---
- General Info Date of Service: 02/22/21 Admission Dx/Problem (Free Text): Admission Diagnosis/Problem Admission Diagnosis/Problem Hypoxia Subjective Update: Patient does not have new medical complaints. Denies of fever, chills, nausea, vomiting, or diarrhea However, he needs more oxygen, he is now on 60L with FIO2 100. Creatinine 0.9 He was upgraded to ICU this morning - Review of Systems Systems Review Comment:: Positive for shortness of breath and decreased sense of taste and smell. All other systems were reviewed and negative. - Patient Data Vitals - Most Recent: Last Vital Signs Temp 36.4 C 02/22/21 12:19 Pulse 82 02/22/21 04:13 Resp 17 02/22/21 04:13 BP 138/80 02/22/21 12:19 Pulse Ox 98 02/22/21 12:56 Weight - Most Recent: 91.036 kg I&O - Last 24 Hours: Intake & Output 02/21/21 02/22/21 02/22/21 22:59 06:59 14:59 Intake Total 800 900 Output Total 800 800 Balance 0 100 Lab Results Last 24 Hours: Laboratory Results - last 24 hr 02/21/21 02/21/21 02/22/21 Range/Units 17:31 21:21 06:40 WBC (4.23-9.07) K/mm3 RBC (4.63-6.08) M/mm3 Hgb (13.7-17.5) gm/dl Hct (40.1-51.0) % MCV (79.0-92.2) fl MCH (25.7-32.2) pg MCHC (32.2-35.5) g/dl RDW Std Deviation (35.1-43.9) fL Plt Count (163-337) K/mm3 MPV (9.4-12.3) fl Neut % (Auto) (34.0-67.9) % Lymph % (Auto) (21.8-53.1) % [place] % (Auto) (5.3-12.2) % Eos % (Auto) (0.8-7.0) Baso % (Auto) (0.1-1.2) % Neut # (Auto) (1.78-5.38) K/mm3 Lymph # (Auto) (1.32-3.57) K/mm3 [place] # (Auto) (0.30-0.82) K/mm3 Eos # (Auto) (0.04-0.54) K/mm3 Baso # (Auto) (0.01-0.08) K/mm3 Manual Slide Review Sodium (136-145) mEq/L Potassium (3.5-5.1) mEq/L Chloride (98-107) mEq/L Carbon Dioxide (21-32) mEq/L Anion Gap (5-15) BUN (7-18) mg/dL Creatinine (0.7-1.3) mg/dL Est Cr Clr Drug Dosing mL/min Estimated GFR (MDRD) (>60) mL/min BUN/Creatinine Ratio (14-18) Glucose (70-99) mg/dL POC Glucose 179 H 196 H 179 H (70-99) mg/dL Calcium (8.5-10.1) mg/dL Total Bilirubin (0.2-1.0) mg/dL AST (15-37) U/L ALT (16-63) U/L Alkaline Phosphatase (46-116) U/L Total Protein (6.4-8.2) g/dl Albumin (3.4-5.0) g/dl Globulin gm/dL Albumin/Globulin Ratio (1-2) 02/22/21 02/22/21 02/22/21 Range/Units 07:35 07:35 11:42 WBC 12.36 H (4.23-9.07) K/mm3 RBC 4.43 L (4.63-6.08) M/mm3 Hgb 13.9 (13.7-17.5) gm/dl Hct 41.0 (40.1-51.0) % MCV 92.6 H (79.0-92.2) fl MCH 31.4 (25.7-32.2) pg MCHC 33.9 (32.2-35.5) g/dl RDW Std Deviation 39.1 (35.1-43.9) fL Plt Count 301 D (163-337) K/mm3 MPV 9.1 L (9.4-12.3) fl Neut % (Auto) 94.1 H (34.0-67.9) % Lymph % (Auto) 2.8 L (21.8-53.1) % [place] % (Auto) 2.8 L (5.3-12.2) % Eos % (Auto) 0 L (0.8-7.0) Baso % (Auto) 0.1 (0.1-1.2) % Neut # (Auto) 11.63 H (1.78-5.38) K/mm3 Lymph # (Auto) 0.35 L (1.32-3.57) K/mm3 [place] # (Auto) 0.35 (0.30-0.82) K/mm3 Eos # (Auto) 0.00 L (0.04-0.54) K/mm3 Baso # (Auto) 0.01 (0.01-0.08) K/mm3 Manual Slide Review Abnormal smear Sodium 138 (136-145) mEq/L Potassium 3.8 (3.5-5.1) mEq/L Chloride 100 (98-107) mEq/L Carbon Dioxide 29 (21-32) mEq/L Anion Gap 12.8 (5-15) BUN 26 H (7-18) mg/dL Creatinine 0.9 (0.7-1.3) mg/dL Est Cr Clr Drug Dosing 79.65 mL/min Estimated GFR (MDRD) > 60 (>60) mL/min BUN/Creatinine Ratio 28.9 H (14-18) Glucose 179 H (70-99) mg/dL POC Glucose 169 H (70-99) mg/dL Calcium 7.6 L (8.5-10.1) mg/dL Total Bilirubin 0.7 (0.2-1.0) mg/dL AST 116 H (15-37) U/L ALT 191 H (16-63) U/L Alkaline Phosphatase 60 (46-116) U/L Total Protein 5.6 L (6.4-8.2) g/dl Albumin 2.4 L (3.4-5.0) g/dl Globulin 3.2 gm/dL Albumin/Globulin Ratio 0.8 L (1-2) Med Orders - Current: Current Medications Acetaminophen (Acetaminophen 325 Mg Tab) 650 mg PO Q4H PRN PRN Reason: Fever Greater Than 101 Last Admin: 02/22/21 02:01 Dose: 650 mg Documented by: Albuterol/Ipratropium (Albuterol/Ipratropium 3.0-0.5 Mg/3 Ml Neb Soln) 3 ml NEB Q4HRRT PRN PRN Reason: Shortness of Breath Last Admin: 02/22/21 09:22 Dose: 3 ml Documented by: Ascorbic Acid (Ascorbic Acid 500 Mg Tab) 500 mg PO BID [facility] Last Admin: 02/22/21 08:35 Dose: 500 mg Documented by: Cholecalciferol (Cholecalciferol (Vitamin D3) 5,000 Unit Cap) 5,000 unit PO DAILY [facility] Enoxaparin Sodium (Enoxaparin 100 Mg/1 Ml Syringe) 90 mg SUBCUT BID [facility] Last Admin: 02/22/21 08:35 Dose: 90 mg Documented by: Remdesivir 100 mg/ Sodium (Chloride) 100 mls @ 100 mls/hr IV Q24H [facility] Stop: 02/24/21 13:59 Last Admin: 02/22/21 12:28 Dose: 100 mls/hr Documented by: Insulin Human Lispro (Insulin Lispro 100 Unit/Ml 3 Ml Kwikpen) 0 unit SUBCUT QIDACANDBED [facility]; Protocol Last Admin: 02/22/21 12:07 Dose: 2 units Documented by: Methylprednisolone Sodium Succinate (Methylprednisolone Sodium Succinate 125 Mg/2 Ml Sdv) 40 mg IVPUSH Q6H [facility] Last Admin: 02/22/21 12:56 Dose: 40 mg Documented by: Rosuvastatin Calcium (Rosuvastatin 10 Mg Tab) 5 mg PO DAILY [facility] Last Admin: 02/22/21 08:34 Dose: 5 mg Documented by: Sodium Chloride (Sodium Chloride 0.9% 10 Ml Syringe) 10 ml FLUSH ASDIRECTED PRN PRN Reason: Keep Vein Open Last Admin: 02/20/21 09:40 Dose: 10 ml Documented by: Zinc Sulfate (Zinc Sulfate 220 Mg Cap) 220 mg PO DAILY [facility] Last Admin: 02/22/21 08:35 Dose: 220 mg Documented by: Discontinued Medications Albuterol/Ipratropium (Albuterol/Ipratropium 3.0-0.5 Mg/3 Ml Neb Soln) 3 ml NEB ONETIME ONE Stop: 02/20/21 09:57 Last Admin: 02/20/21 10:24 Dose: 3 ml Documented by: Dexamethasone (Dexamethasone 4 Mg/Ml Sdv) 6 mg IVPUSH ONETIME ONE Stop: 02/20/21 12:16 Last Admin: 02/20/21 15:34 Dose: Not Given Documented by: Enoxaparin Sodium (Enoxaparin 40 Mg/0.4 Ml Syringe) 40 mg SUBCUT DAILY [facility] Last Admin: 02/21/21 08:20 Dose: 40 mg Documented by: Sodium Chloride (Normal Saline) 1,000 mls @ 1,000 mls/hr IV .BOLUS [facility] Last Admin: 02/20/21 09:40 Dose: 1,000 mls/hr Documented by: Remdesivir 200 mg/ Sodium (Chloride) 250 mls @ 250 mls/hr IV ONETIME ONE Stop: 02/20/21 13:39 Last Admin: 02/20/21 12:47 Dose: 250 mls/hr Documented by: Methylprednisolone Sodium Succinate (Methylprednisolone Sodium Succinate 125 Mg/2 Ml Sdv) 125 mg IVPUSH ONETIME ONE Stop: 02/20/21 12:26 Last Admin: 02/20/21 12:45 Dose: 125 mg Documented by: Methylprednisolone Sodium Succinate (Methylprednisolone Sodium Succinate 40 Mg/1 Ml Sdv) 40 mg IVPUSH Q6H [facility] Last Admin: 02/22/21 06:41 Dose: 40 mg Documented by: - Exam Physical Findings Comments:: General: Alert, Oriented, Cooperative HEENT: Pupils Equal, Pupils Reactive, EOMI Neck: Supple, Trachea Midline, No JVD, No Thyromegaly Lungs: Normal Respiratory Effort, Decreased Breath Sounds GI/Abdominal Exam: Normal Bowel Sounds, Soft, Non-Tender, No Organomegaly Extremities: Normal Inspection, Normal Range of Motion, Non-Tender, No Pedal Edema Skin: Warm, Dry, Intact Neurological: No New Focal Deficit, Normal Speech, Normal Tone, Strength Equal Bilateral, Reflexes Equal Bilateral, Sensation Intact Psy/Mental Status: Alert, Normal Affect, Normal Mood - Patient Data Lab Results Last 24 hrs: Laboratory Results - last 24 hr 02/21/21 02/21/21 02/22/21 Range/Units 17:31 21:21 06:40 WBC (4.23-9.07) K/mm3 RBC (4.63-6.08) M/mm3 Hgb (13.7-17.5) gm/dl Hct (40.1-51.0) % MCV (79.0-92.2) fl MCH (25.7-32.2) pg MCHC (32.2-35.5) g/dl RDW Std Deviation (35.1-43.9) fL Plt Count (163-337) K/mm3 MPV (9.4-12.3) fl Neut % (Auto) (34.0-67.9) % Lymph % (Auto) (21.8-53.1) % [place] % (Auto) (5.3-12.2) % Eos % (Auto) (0.8-7.0) Baso % (Auto) (0.1-1.2) % Neut # (Auto) (1.78-5.38) K/mm3 Lymph # (Auto) (1.32-3.57) K/mm3 [place] # (Auto) (0.30-0.82) K/mm3 Eos # (Auto) (0.04-0.54) K/mm3 Baso # (Auto) (0.01-0.08) K/mm3 Manual Slide Review Sodium (136-145) mEq/L Potassium (3.5-5.1) mEq/L Chloride (98-107) mEq/L Carbon Dioxide (21-32) mEq/L Anion Gap (5-15) BUN (7-18) mg/dL Creatinine (0.7-1.3) mg/dL Est Cr Clr Drug Dosing mL/min Estimated GFR (MDRD) (>60) mL/min BUN/Creatinine Ratio (14-18) Glucose (70-99) mg/dL POC Glucose 179 H 196 H 179 H (70-99) mg/dL Calcium (8.5-10.1) mg/dL Total Bilirubin (0.2-1.0) mg/dL AST (15-37) U/L ALT (16-63) U/L Alkaline Phosphatase (46-116) U/L Total Protein (6.4-8.2) g/dl Albumin (3.4-5.0) g/dl Globulin gm/dL Albumin/Globulin Ratio (1-2) 02/22/21 02/22/21 02/22/21 Range/Units 07:35 07:35 11:42 WBC 12.36 H (4.23-9.07) K/mm3 RBC 4.43 L (4.63-6.08) M/mm3 Hgb 13.9 (13.7-17.5) gm/dl Hct 41.0 (40.1-51.0) % MCV 92.6 H (79.0-92.2) fl MCH 31.4 (25.7-32.2) pg MCHC 33.9 (32.2-35.5) g/dl RDW Std Deviation 39.1 (35.1-43.9) fL Plt Count 301 D (163-337) K/mm3 MPV 9.1 L (9.4-12.3) fl Neut % (Auto) 94.1 H (34.0-67.9) % Lymph % (Auto) 2.8 L (21.8-53.1) % [place] % (Auto) 2.8 L (5.3-12.2) % Eos % (Auto) 0 L (0.8-7.0) Baso % (Auto) 0.1 (0.1-1.2) % Neut # (Auto) 11.63 H (1.78-5.38) K/mm3 Lymph # (Auto) 0.35 L (1.32-3.57) K/mm3 [place] # (Auto) 0.35 (0.30-0.82) K/mm3 Eos # (Auto) 0.00 L (0.04-0.54) K/mm3 Baso # (Auto) 0.01 (0.01-0.08) K/mm3 Manual Slide Review Abnormal smear Sodium 138 (136-145) mEq/L Potassium 3.8 (3.5-5.1) mEq/L Chloride 100 (98-107) mEq/L Carbon Dioxide 29 (21-32) mEq/L Anion Gap 12.8 (5-15) BUN 26 H (7-18) mg/dL Creatinine 0.9 (0.7-1.3) mg/dL Est Cr Clr Drug Dosing 79.65 mL/min Estimated GFR (MDRD) > 60 (>60) mL/min BUN/Creatinine Ratio 28.9 H (14-18) Glucose 179 H (70-99) mg/dL POC Glucose 169 H (70-99) mg/dL Calcium 7.6 L (8.5-10.1) mg/dL Total Bilirubin 0.7 (0.2-1.0) mg/dL AST 116 H (15-37) U/L ALT 191 H (16-63) U/L Alkaline Phosphatase 60 (46-116) U/L Total Protein 5.6 L (6.4-8.2) g/dl Albumin 2.4 L (3.4-5.0) g/dl Globulin 3.2 gm/dL Albumin/Globulin Ratio 0.8 L (1-2) Result Diagrams: 02/22/21 07:35 02/22/21 07:35 Sepsis Event Note - Evaluation Sepsis Screening Result: No Definite Risk - Focused Exam Vital Signs: Vital Signs Temp Temp Pulse Resp BP BP Pulse Ox 02/22/21 12:56 02/22/21 12:19 36.4 C 138/80 95 02/22/21 09:22 02/22/21 04:13 36.9 C 82 17 123/63 100 02/22/21 02:31 36.9 C 02/22/21 02:01 37.3 C Pulse Ox 02/22/21 12:56 98 02/22/21 12:19 02/22/21 09:22 89 L 02/22/21 04:13 02/22/21 02:31 02/22/21 02:01 - Problem List Review Problem List Initiated/Reviewed/Updated: Yes - My Orders Last 24 Hours: My Active Orders 02/21/21 21:00 Enoxaparin [Lovenox] 90 mg SUBCUT BID 02/23/21 09:00 Cholecalciferol (Vitamin D3) [Vitamin D3] 5,000 unit PO DAILY - Plan Plan:: Patient is a 65-year-old male with a past medical history as listed below which does include asthma who presents to the emergency department with a chief complaint of low oxygen at home. Patient states that he began to lose his sense of taste and smell roughly a week to a week and a half ago before admission on 02/20. In the ER it was confirmed that he was COVID-19 positive. 1. Acute hypoxic respiratory failure in the setting of COVID-19. Admit to the hospitalist service for further management. Continue supplemental oxygen and wean as tolerated or advance as tolerated. Keep oxygen saturation greater than 90 % at all times RT consult. Continue Solu-Medrol 40 mg every 6 hours. Remdesivir protocol (AST and ALT increased but the increase could be due to Covid 19 infection. Considering worsening condition, I would like to let him complete the course) Baricitinib 4mg daily (discussed with who agreed to start it) Lovenox 90 mg twice daily Continue vitamin supplements with vitamin C and zinc. Depending on his clinical course will evaluate for monoclonal antibodies/DMARDs. Encourage proning Incentive spirometry encouraged. Bronchodilators as necessary. 2. Hyperglycemia. hemoglobin A1c 6.3 Invoke hospital hyperglycemia protocol if found to be diabetic. All other medical comorbidities are stable and nonactive conditions, will continue home medications at regular dose. CODE STATUS: Full code. DVT prophylaxis with enoxaparin. Prognosis: guarded. updated to
[2021-02-22] MEDS: guaiFENesin/Dextromethorphan 100-10 MG/5 ML Soln 5 ML Cup PO PRN ×2 (14:42→20:12)
[2021-02-23] MEDS: methylPREDNISolone Sodium Succinate 125 MG/2 ML SDV IVPUSH SCH ×5 (00:53→20:25)
[2021-02-23] MEDS: guaiFENesin/Dextromethorphan 100-10 MG/5 ML Soln 5 ML Cup PO PRN ×3 (05:31→22:54)
[2021-02-23] MEDS: Albuterol/Ipratropium 3.0-0.5 MG/3 ML Neb Soln NEB PRN ×4 (05:55→20:15)
[2021-02-23] MEDS: Enoxaparin 100 MG/1 ML Syringe SUBCUT SCH ×2 (08:30→20:24)
[2021-02-23] MEDS: Cholecalciferol (Vitamin D3) 5,000 UNIT Cap PO SCH (08:30)
[2021-02-23] MEDS: Rosuvastatin 10 MG Tab PO SCH (08:31)
[2021-02-23] MEDS: Zinc Sulfate 220 MG Cap PO SCH (08:32)
[2021-02-23] MEDS: Ascorbic Acid 500 MG Tab PO SCH ×2 (08:32→20:25)
[2021-02-23] MEDS: Insulin Lispro 100 Unit/ML 3 ML KwikPen SUBCUT SCH ×6 (09:22→21:48)
--- NOTE | 2021-02-23 12:28 | PCM.PN ---
- General Info Date of Service: 02/23/21 Admission Dx/Problem (Free Text): Admission Diagnosis/Problem Admission Diagnosis/Problem Hypoxia Subjective Update: Patient has sob and he is trying to prone himself. Denies of fever, chills, nausea, vomiting, or diarrhea However, he needs more oxygen, he is now on 60L with FIO2 95-100. Instructed RN and RT to keep his SpO2 > 90% ABG 7.47/41.4/47/29.9/82.9, BIPAP - Review of Systems Systems Review Comment:: Positive for shortness of breath and decreased sense of taste and smell. All other systems were reviewed and negative. - Patient Data Vitals - Most Recent: Last Vital Signs Temp 37.0 C 02/23/21 08:00 Pulse 72 02/22/21 08:49 Resp 20 02/23/21 08:00 BP 112/63 02/23/21 08:00 Pulse Ox 90 L 02/23/21 08:53 Weight - Most Recent: 90.446 kg I&O - Last 24 Hours: Intake & Output 02/22/21 02/23/21 02/23/21 22:59 06:59 14:59 Intake Total 900 800 Output Total 610 800 Balance 290 800 -800 Lab Results Last 24 Hours: Laboratory Results - last 24 hr 02/22/21 02/22/21 02/23/21 Range/Units 17:15 20:17 04:51 WBC 7.12 (4.23-9.07) K/mm3 RBC 4.32 L (4.63-6.08) M/mm3 Hgb 13.6 L (13.7-17.5) gm/dl Hct 40.5 (40.1-51.0) % MCV 93.8 H (79.0-92.2) fl MCH 31.5 (25.7-32.2) pg MCHC 33.6 (32.2-35.5) g/dl RDW Std Deviation 39.8 (35.1-43.9) fL Plt Count 303 (163-337) K/mm3 MPV 9.5 (9.4-12.3) fl Neut % (Auto) 91.3 H (34.0-67.9) % Lymph % (Auto) 4.9 L (21.8-53.1) % Thomas % (Auto) 3.7 L (5.3-12.2) % Eos % (Auto) 0 L (0.8-7.0) Baso % (Auto) 0.0 L (0.1-1.2) % Neut # (Auto) 6.50 H (1.78-5.38) K/mm3 Lymph # (Auto) 0.35 L (1.32-3.57) K/mm3 Thomas # (Auto) 0.26 L (0.30-0.82) K/mm3 Eos # (Auto) 0.00 L (0.04-0.54) K/mm3 Baso # (Auto) 0.00 L (0.01-0.08) K/mm3 Manual Slide Review Abnormal smear Puncture Site ABG pH (7.35-7.45) ABG pCO2 (35.0-45.0) mmHg ABG pO2 (80.0-100.0) mmHg ABG HCO3 (22.0-26.0) meq/L ABG O2 Saturation (96.0-97.0) % ABG Base Excess (-2-2.0) Ephraim Test A-a Gradient mmHg O2 Delivery Device Oxygen Flow Rate FiO2 (21.00-100.00) % Sodium (136-145) mEq/L Potassium (3.5-5.1) mEq/L Chloride (98-107) mEq/L Carbon Dioxide (21-32) mEq/L Anion Gap (5-15) BUN (7-18) mg/dL Creatinine (0.7-1.3) mg/dL Est Cr Clr Drug Dosing mL/min Estimated GFR (MDRD) (>60) mL/min BUN/Creatinine Ratio (14-18) Glucose (70-99) mg/dL POC Glucose 180 H 182 H (70-99) mg/dL Calcium (8.5-10.1) mg/dL Total Bilirubin (0.2-1.0) mg/dL AST (15-37) U/L ALT (16-63) U/L Alkaline Phosphatase (46-116) U/L C-Reactive Protein (<1.0) mg/dL Total Protein (6.4-8.2) g/dl Albumin (3.4-5.0) g/dl Globulin gm/dL Albumin/Globulin Ratio (1-2) 02/23/21 02/23/21 02/23/21 Range/Units 04:51 05:33 08:22 WBC (4.23-9.07) K/mm3 RBC (4.63-6.08) M/mm3 Hgb (13.7-17.5) gm/dl Hct (40.1-51.0) % MCV (79.0-92.2) fl MCH (25.7-32.2) pg MCHC (32.2-35.5) g/dl RDW Std Deviation (35.1-43.9) fL Plt Count (163-337) K/mm3 MPV (9.4-12.3) fl Neut % (Auto) (34.0-67.9) % Lymph % (Auto) (21.8-53.1) % Thomas % (Auto) (5.3-12.2) % Eos % (Auto) (0.8-7.0) Baso % (Auto) (0.1-1.2) % Neut # (Auto) (1.78-5.38) K/mm3 Lymph # (Auto) (1.32-3.57) K/mm3 Thomas # (Auto) (0.30-0.82) K/mm3 Eos # (Auto) (0.04-0.54) K/mm3 Baso # (Auto) (0.01-0.08) K/mm3 Manual Slide Review Puncture Site ABG pH (7.35-7.45) ABG pCO2 (35.0-45.0) mmHg ABG pO2 (80.0-100.0) mmHg ABG HCO3 (22.0-26.0) meq/L ABG O2 Saturation (96.0-97.0) % ABG Base Excess (-2-2.0) Ephraim Test A-a Gradient mmHg O2 Delivery Device Oxygen Flow Rate FiO2 (21.00-100.00) % Sodium 140 (136-145) mEq/L Potassium 4.7 (3.5-5.1) mEq/L Chloride 103 (98-107) mEq/L Carbon Dioxide 33 H (21-32) mEq/L Anion Gap 8.7 (5-15) BUN 23 H (7-18) mg/dL Creatinine 0.8 (0.7-1.3) mg/dL Est Cr Clr Drug Dosing 89.60 mL/min Estimated GFR (MDRD) > 60 (>60) mL/min BUN/Creatinine Ratio 28.8 H (14-18) Glucose 172 H (70-99) mg/dL POC Glucose 156 H 186 H (70-99) mg/dL Calcium 7.7 L (8.5-10.1) mg/dL Total Bilirubin 0.7 (0.2-1.0) mg/dL AST 58 H (15-37) U/L ALT 157 H (16-63) U/L Alkaline Phosphatase 57 (46-116) U/L C-Reactive Protein 3.0 H* (<1.0) mg/dL Total Protein 5.3 L (6.4-8.2) g/dl Albumin 2.3 L (3.4-5.0) g/dl Globulin 3.0 gm/dL Albumin/Globulin Ratio 0.8 L (1-2) 02/23/21 Range/Units 08:48 WBC (4.23-9.07) K/mm3 RBC (4.63-6.08) M/mm3 Hgb (13.7-17.5) gm/dl Hct (40.1-51.0) % MCV (79.0-92.2) fl MCH (25.7-32.2) pg MCHC (32.2-35.5) g/dl RDW Std Deviation (35.1-43.9) fL Plt Count (163-337) K/mm3 MPV (9.4-12.3) fl Neut % (Auto) (34.0-67.9) % Lymph % (Auto) (21.8-53.1) % Thomas % (Auto) (5.3-12.2) % Eos % (Auto) (0.8-7.0) Baso % (Auto) (0.1-1.2) % Neut # (Auto) (1.78-5.38) K/mm3 Lymph # (Auto) (1.32-3.57) K/mm3 Thomas # (Auto) (0.30-0.82) K/mm3 Eos # (Auto) (0.04-0.54) K/mm3 Baso # (Auto) (0.01-0.08) K/mm3 Manual Slide Review Puncture Site Rt radial ABG pH 7.47 H (7.35-7.45) ABG pCO2 41.4 (35.0-45.0) mmHg ABG pO2 47.0 L (80.0-100.0) mmHg ABG HCO3 29.9 H (22.0-26.0) meq/L ABG O2 Saturation 82.9 L (96.0-97.0) % ABG Base Excess 6.0 H (-2-2.0) Ephraim Test Positive A-a Gradient 614 mmHg O2 Delivery Device High flow Oxygen Flow Rate 60.0 FiO2 100.00 (21.00-100.00) % Sodium (136-145) mEq/L Potassium (3.5-5.1) mEq/L Chloride (98-107) mEq/L Carbon Dioxide (21-32) mEq/L Anion Gap (5-15) BUN (7-18) mg/dL Creatinine (0.7-1.3) mg/dL Est Cr Clr Drug Dosing mL/min Estimated GFR (MDRD) (>60) mL/min BUN/Creatinine Ratio (14-18) Glucose (70-99) mg/dL POC Glucose (70-99) mg/dL Calcium (8.5-10.1) mg/dL Total Bilirubin (0.2-1.0) mg/dL AST (15-37) U/L ALT (16-63) U/L Alkaline Phosphatase (46-116) U/L C-Reactive Protein (<1.0) mg/dL Total Protein (6.4-8.2) g/dl Albumin (3.4-5.0) g/dl Globulin gm/dL Albumin/Globulin Ratio (1-2) Med Orders - Current: Current Medications Acetaminophen (Acetaminophen 325 Mg Tab) 650 mg PO Q4H PRN PRN Reason: Fever Greater Than 101 Last Admin: 02/22/21 02:01 Dose: 650 mg Documented by: Albuterol/Ipratropium (Albuterol/Ipratropium 3.0-0.5 Mg/3 Ml Neb Soln) 3 ml NEB Q4HRRT PRN PRN Reason: Shortness of Breath Last Admin: 02/23/21 08:48 Dose: 3 ml Documented by: Ascorbic Acid (Ascorbic Acid 500 Mg Tab) 500 mg PO BID [facility] Last Admin: 02/23/21 08:32 Dose: 500 mg Documented by: Baricitinib (Baricitinib 2 Mg Tab) 4 mg PO DAILY [facility] Stop: 03/07/21 09:01 Last Admin: 02/23/21 08:30 Dose: 4 mg Documented by: Benzonatate (Benzonatate 100 Mg Cap) 100 mg PO Q8H PRN PRN Reason: Cough Cholecalciferol (Cholecalciferol (Vitamin D3) 5,000 Unit Cap) 5,000 unit PO DAILY [facility] Last Admin: 02/23/21 08:30 Dose: 5,000 unit Documented by: Enoxaparin Sodium (Enoxaparin 100 Mg/1 Ml Syringe) 90 mg SUBCUT BID [facility] Last Admin: 02/23/21 08:30 Dose: 90 mg Documented by: Guaifenesin/Phenylephrine HCl (Guaifenesin/Dextromethorphan 100-10 Mg/5 Ml Soln 5 Ml Cup) 5 ml PO Q6H PRN PRN Reason: Cough Last Admin: 02/23/21 05:31 Dose: 5 ml Documented by: Remdesivir 100 mg/ Sodium (Chloride) 100 mls @ 100 mls/hr IV Q24H [facility] Stop: 02/24/21 13:59 Last Admin: 02/22/21 12:28 Dose: 100 mls/hr Documented by: Insulin Human Lispro (Insulin Lispro 100 Unit/Ml 3 Ml Kwikpen) 0 unit SUBCUT QIDACANDBED [facility]; Protocol Last Admin: 02/23/21 12:20 Dose: 8 units Documented by: Methylprednisolone Sodium Succinate (Methylprednisolone Sodium Succinate 125 Mg/2 Ml Sdv) 60 mg IVPUSH Q6H [facility] Last Admin: 02/23/21 09:27 Dose: 60 mg Documented by: Rosuvastatin Calcium (Rosuvastatin 10 Mg Tab) 5 mg PO DAILY [facility] Last Admin: 02/23/21 08:31 Dose: 5 mg Documented by: Sodium Chloride (Sodium Chloride 0.9% 10 Ml Syringe) 10 ml FLUSH ASDIRECTED PRN PRN Reason: Keep Vein Open Last Admin: 02/20/21 09:40 Dose: 10 ml Documented by: Zinc Sulfate (Zinc Sulfate 220 Mg Cap) 220 mg PO DAILY [facility] Last Admin: 02/23/21 08:32 Dose: 220 mg Documented by: Discontinued Medications Albuterol/Ipratropium (Albuterol/Ipratropium 3.0-0.5 Mg/3 Ml Neb Soln) 3 ml NEB ONETIME ONE Stop: 02/20/21 09:57 Last Admin: 02/20/21 10:24 Dose: 3 ml Documented by: Dexamethasone (Dexamethasone 4 Mg/Ml Sdv) 6 mg IVPUSH ONETIME ONE Stop: 02/20/21 12:16 Last Admin: 02/20/21 15:34 Dose: Not Given Documented by: Enoxaparin Sodium (Enoxaparin 40 Mg/0.4 Ml Syringe) 40 mg SUBCUT DAILY [facility] Last Admin: 02/21/21 08:20 Dose: 40 mg Documented by: Sodium Chloride (Normal Saline) 1,000 mls @ 1,000 mls/hr IV .BOLUS [facility] Last Admin: 02/20/21 09:40 Dose: 1,000 mls/hr Documented by: Remdesivir 200 mg/ Sodium (Chloride) 250 mls @ 250 mls/hr IV ONETIME ONE Stop: 02/20/21 13:39 Last Admin: 02/20/21 12:47 Dose: 250 mls/hr Documented by: Methylprednisolone Sodium Succinate (Methylprednisolone Sodium Succinate 125 Mg/2 Ml Sdv) 125 mg IVPUSH ONETIME ONE Stop: 02/20/21 12:26 Last Admin: 02/20/21 12:45 Dose: 125 mg Documented by: Methylprednisolone Sodium Succinate (Methylprednisolone Sodium Succinate 40 Mg/1 Ml Sdv) 40 mg IVPUSH Q6H [facility] Last Admin: 02/22/21 06:41 Dose: 40 mg Documented by: Methylprednisolone Sodium Succinate (Methylprednisolone Sodium Succinate 125 Mg/2 Ml Sdv) 40 mg IVPUSH Q6H [facility] Last Admin: 02/23/21 06:00 Dose: 40 mg Documented by: - Exam Physical Findings Comments:: General: Alert, Oriented, Cooperative HEENT: Pupils Equal, Pupils Reactive, EOMI Neck: Supple, Trachea Midline, No JVD, No Thyromegaly Lungs: Normal Respiratory Effort, Decreased Breath Sounds, crackles b/l GI/Abdominal Exam: Normal Bowel Sounds, Soft, Non-Tender, No Organomegaly Extremities: Normal Inspection, Normal Range of Motion, Non-Tender, No Pedal Edema Skin: Warm, Dry, Intact Neurological: No New Focal Deficit, Normal Speech, Normal Tone, Strength Equal Bilateral, Reflexes Equal Bilateral, Sensation Intact Psy/Mental Status: Alert, Normal Affect, Normal Mood - Patient Data Lab Results Last 24 hrs: Laboratory Results - last 24 hr 02/22/21 02/22/21 02/23/21 Range/Units 17:15 20:17 04:51 WBC 7.12 (4.23-9.07) K/mm3 RBC 4.32 L (4.63-6.08) M/mm3 Hgb 13.6 L (13.7-17.5) gm/dl Hct 40.5 (40.1-51.0) % MCV 93.8 H (79.0-92.2) fl MCH 31.5 (25.7-32.2) pg MCHC 33.6 (32.2-35.5) g/dl RDW Std Deviation 39.8 (35.1-43.9) fL Plt Count 303 (163-337) K/mm3 MPV 9.5 (9.4-12.3) fl Neut % (Auto) 91.3 H (34.0-67.9) % Lymph % (Auto) 4.9 L (21.8-53.1) % Thomas % (Auto) 3.7 L (5.3-12.2) % Eos % (Auto) 0 L (0.8-7.0) Baso % (Auto) 0.0 L (0.1-1.2) % Neut # (Auto) 6.50 H (1.78-5.38) K/mm3 Lymph # (Auto) 0.35 L (1.32-3.57) K/mm3 Thomas # (Auto) 0.26 L (0.30-0.82) K/mm3 Eos # (Auto) 0.00 L (0.04-0.54) K/mm3 Baso # (Auto) 0.00 L (0.01-0.08) K/mm3 Manual Slide Review Abnormal smear Puncture Site ABG pH (7.35-7.45) ABG pCO2 (35.0-45.0) mmHg ABG pO2 (80.0-100.0) mmHg ABG HCO3 (22.0-26.0) meq/L ABG O2 Saturation (96.0-97.0) % ABG Base Excess (-2-2.0) Ephraim Test A-a Gradient mmHg O2 Delivery Device Oxygen Flow Rate FiO2 (21.00-100.00) % Sodium (136-145) mEq/L Potassium (3.5-5.1) mEq/L Chloride (98-107) mEq/L Carbon Dioxide (21-32) mEq/L Anion Gap (5-15) BUN (7-18) mg/dL Creatinine (0.7-1.3) mg/dL Est Cr Clr Drug Dosing mL/min Estimated GFR (MDRD) (>60) mL/min BUN/Creatinine Ratio (14-18) Glucose (70-99) mg/dL POC Glucose 180 H 182 H (70-99) mg/dL Calcium (8.5-10.1) mg/dL Total Bilirubin (0.2-1.0) mg/dL AST (15-37) U/L ALT (16-63) U/L Alkaline Phosphatase (46-116) U/L C-Reactive Protein (<1.0) mg/dL Total Protein (6.4-8.2) g/dl Albumin (3.4-5.0) g/dl Globulin gm/dL Albumin/Globulin Ratio (1-2) 02/23/21 02/23/21 02/23/21 Range/Units 04:51 05:33 08:22 WBC (4.23-9.07) K/mm3 RBC (4.63-6.08) M/mm3 Hgb (13.7-17.5) gm/dl Hct (40.1-51.0) % MCV (79.0-92.2) fl MCH (25.7-32.2) pg MCHC (32.2-35.5) g/dl RDW Std Deviation (35.1-43.9) fL Plt Count (163-337) K/mm3 MPV (9.4-12.3) fl Neut % (Auto) (34.0-67.9) % Lymph % (Auto) (21.8-53.1) % Thomas % (Auto) (5.3-12.2) % Eos % (Auto) (0.8-7.0) Baso % (Auto) (0.1-1.2) % Neut # (Auto) (1.78-5.38) K/mm3 Lymph # (Auto) (1.32-3.57) K/mm3 Thomas # (Auto) (0.30-0.82) K/mm3 Eos # (Auto) (0.04-0.54) K/mm3 Baso # (Auto) (0.01-0.08) K/mm3 Manual Slide Review Puncture Site ABG pH (7.35-7.45) ABG pCO2 (35.0-45.0) mmHg ABG pO2 (80.0-100.0) mmHg ABG HCO3 (22.0-26.0) meq/L ABG O2 Saturation (96.0-97.0) % ABG Base Excess (-2-2.0) Epharim Test A-a Gradient mmHg O2 Delivery Device Oxygen Flow Rate FiO2 (21.00-100.00) % Sodium 140 (136-145) mEq/L Potassium 4.7 (3.5-5.1) mEq/L Chloride 103 (98-107) mEq/L Carbon Dioxide 33 H (21-32) mEq/L Anion Gap 8.7 (5-15) BUN 23 H (7-18) mg/dL Creatinine 0.8 (0.7-1.3) mg/dL Est Cr Clr Drug Dosing 89.60 mL/min Estimated GFR (MDRD) > 60 (>60) mL/min BUN/Creatinine Ratio 28.8 H (14-18) Glucose 172 H (70-99) mg/dL POC Glucose 156 H 186 H (70-99) mg/dL Calcium 7.7 L (8.5-10.1) mg/dL Total Bilirubin 0.7 (0.2-1.0) mg/dL AST 58 H (15-37) U/L ALT 157 H (16-63) U/L Alkaline Phosphatase 57 (46-116) U/L C-Reactive Protein 3.0 H* (<1.0) mg/dL Total Protein 5.3 L (6.4-8.2) g/dl Albumin 2.3 L (3.4-5.0) g/dl Globulin 3.0 gm/dL Albumin/Globulin Ratio 0.8 L (1-2) 02/23/21 Range/Units 08:48 WBC (4.23-9.07) K/mm3 RBC (4.63-6.08) M/mm3 Hgb (13.7-17.5) gm/dl Hct (40.1-51.0) % MCV (79.0-92.2) fl MCH (25.7-32.2) pg MCHC (32.2-35.5) g/dl RDW Std Deviation (35.1-43.9) fL Plt Count (163-337) K/mm3 MPV (9.4-12.3) fl Neut % (Auto) (34.0-67.9) % Lymph % (Auto) (21.8-53.1) % Thomas % (Auto) (5.3-12.2) % Eos % (Auto) (0.8-7.0) Baso % (Auto) (0.1-1.2) % Neut # (Auto) (1.78-5.38) K/mm3 Lymph # (Auto) (1.32-3.57) K/mm3 Thomas # (Auto) (0.30-0.82) K/mm3 Eos # (Auto) (0.04-0.54) K/mm3 Baso # (Auto) (0.01-0.08) K/mm3 Manual Slide Review Puncture Site Rt radial ABG pH 7.47 H (7.35-7.45) ABG pCO2 41.4 (35.0-45.0) mmHg ABG pO2 47.0 L (80.0-100.0) mmHg ABG HCO3 29.9 H (22.0-26.0) meq/L ABG O2 Saturation 82.9 L (96.0-97.0) % ABG Base Excess 6.0 H (-2-2.0) Ephraim Test Positive A-a Gradient 614 mmHg O2 Delivery Device High flow Oxygen Flow Rate 60.0 FiO2 100.00 (21.00-100.00) % Sodium (136-145) mEq/L Potassium (3.5-5.1) mEq/L Chloride (98-107) mEq/L Carbon Dioxide (21-32) mEq/L Anion Gap (5-15) BUN (7-18) mg/dL Creatinine (0.7-1.3) mg/dL Est Cr Clr Drug Dosing mL/min Estimated GFR (MDRD) (>60) mL/min BUN/Creatinine Ratio (14-18) Glucose (70-99) mg/dL POC Glucose (70-99) mg/dL Calcium (8.5-10.1) mg/dL Total Bilirubin (0.2-1.0) mg/dL AST (15-37) U/L ALT (16-63) U/L Alkaline Phosphatase (46-116) U/L C-Reactive Protein (<1.0) mg/dL Total Protein (6.4-8.2) g/dl Albumin (3.4-5.0) g/dl Globulin gm/dL Albumin/Globulin Ratio (1-2) Result Diagrams: 02/23/21 04:51 02/23/21 04:51 Sepsis Event Note - Evaluation Sepsis Screening Result: No Definite Risk - Focused Exam Vital Signs: Vital Signs Temp Resp BP Pulse Ox Pulse Ox 02/23/21 08:53 90 L 02/23/21 08:00 37.0 C 20 112/63 90 L 02/23/21 05:57 87 L 02/23/21 04:00 36.2 C 19 120/64 88 L 02/23/21 02:53 97 02/23/21 00:57 92 L - Problem List Review Problem List Initiated/Reviewed/Updated: Yes - My Orders Last 24 Hours: My Active Orders 02/22/21 13:45 Baricitinib [Olumiant] 4 mg PO DAILY 02/23/21 09:00 Cholecalciferol (Vitamin D3) [Vitamin D3] 5,000 unit PO DAILY methylPREDNISolone Sod Succ [Solu-MEDROL] 60 mg IVPUSH Q6H 02/23/21 10:33 Benzonatate [Tessalon Perles] 100 mg PO Q8H PRN 02/24/21 05:00 CBC WITH AUTO DIFF [HEME] DAILY COMPREHENSIVE METABOLIC PN,CMP [CHEM] DAILY CRP [C-REACTIVE PROTEIN] [CHEM] DAILY 02/25/21 05:00 CBC WITH AUTO DIFF [HEME] DAILY COMPREHENSIVE METABOLIC PN,CMP [CHEM] DAILY CRP [C-REACTIVE PROTEIN] [CHEM] DAILY 02/26/21 05:00 CBC WITH AUTO DIFF [HEME] DAILY COMPREHENSIVE METABOLIC PN,CMP [CHEM] DAILY CRP [C-REACTIVE PROTEIN] [CHEM] DAILY 02/27/21 05:00 CBC WITH AUTO DIFF [HEME] DAILY COMPREHENSIVE METABOLIC PN,CMP [CHEM] DAILY CRP [C-REACTIVE PROTEIN] [CHEM] DAILY - Plan Plan:: Patient is a 65-year-old male with a past medical history as listed below which does include asthma who presents to the emergency department with a chief complaint of low oxygen at home. Patient states that he began to lose his sense of taste and smell roughly a week to a week and a half ago before admission on 02/20. In the ER it was confirmed that he was COVID-19 positive. 1. Acute hypoxic respiratory failure in the setting of COVID-19. Continue supplemental oxygen and wean as tolerated or advance as tolerated. Keep oxygen saturation greater than 90 % at all times RT consult. Increased Solu-Medrol to 60 mg every 6 hours. Remdesivir protocol [AST and ALT increased (lower than yesterday) but the increase could be due to Covid 19 infection. Considering worsening condition, I would like to let him complete the course] Baricitinib 4mg daily (discussed with who agreed to start it) Lovenox 90 mg twice daily Continue vitamin supplements with vitamin C and zinc. Depending on his clinical course will evaluate for monoclonal antibodies/DMARDs. Encourage proning Incentive spirometry encouraged. Bronchodilators as necessary. 2. Hyperglycemia. hemoglobin A1c 6.3 Invoke hospital hyperglycemia protocol if found to be diabetic. All other medical comorbidities are stable and nonactive conditions, will continue home medications at regular dose. CODE STATUS: Full code. DVT prophylaxis with enoxaparin. Prognosis: guarded. updated to
[2021-02-23] MEDS: REMDESIVIR 100 MG in Sodium Chloride 0.9% 100 ML IV SCH (13:24)
[2021-02-23] MEDS: Benzonatate 100 MG Cap PO PRN ×2 (13:51→22:54)
[2021-02-24] MEDS: guaiFENesin/Dextromethorphan 100-10 MG/5 ML Soln 5 ML Cup PO PRN ×3 (00:03→20:01)
[2021-02-24] MEDS: Benzonatate 100 MG Cap PO PRN ×2 (00:03→20:01)
[2021-02-24] MEDS: methylPREDNISolone Sodium Succinate 125 MG/2 ML SDV IVPUSH SCH ×4 (04:20→20:01)
--- NOTE | 2021-02-24 08:35 | PCM.SN.2 ---
- Free Text/Narrative Note: RN and I met pt in his room this morning. I explained the CPR and intubation at length to patient who declined intubation but agreed to have CPR. All questions were answered.
[2021-02-24] MEDS: Zinc Sulfate 220 MG Cap PO SCH (08:57)
[2021-02-24] MEDS: Rosuvastatin 10 MG Tab PO SCH (08:57)
[2021-02-24] MEDS: Ascorbic Acid 500 MG Tab PO SCH ×2 (08:57→20:01)
[2021-02-24] MEDS: Cholecalciferol (Vitamin D3) 5,000 UNIT Cap PO SCH (08:57)
[2021-02-24] MEDS: Enoxaparin 100 MG/1 ML Syringe SUBCUT SCH ×2 (08:58→20:00)
[2021-02-24] MEDS: Insulin Lispro 100 Unit/ML 3 ML KwikPen SUBCUT SCH ×4 (09:12→21:16)
--- NOTE | 2021-02-24 09:46 | PCM.PN ---
- General Info Date of Service: 02/24/21 Admission Dx/Problem (Free Text): Admission Diagnosis/Problem Admission Diagnosis/Problem Hypoxia Subjective Update: Pt states that he is feeling better, less sob. Denies of fever, chills, nausea, vomiting, or diarrhea He is now on 60L with FIO2 100. Instructed RN and RT to keep his SpO2 > 90% at all time CRP 1.9 - Review of Systems Systems Review Comment:: Positive for shortness of breath and decreased sense of taste and smell. All other systems were reviewed and negative. - Patient Data Vitals - Most Recent: Last Vital Signs Temp 36.2 C 02/24/21 08:00 Pulse 76 02/24/21 04:00 Resp 25 H 02/24/21 08:00 BP 149/74 H 02/24/21 08:00 Pulse Ox 81 L 02/24/21 08:00 Weight - Most Recent: 90.628 kg I&O - Last 24 Hours: Intake & Output 02/23/21 02/24/21 02/24/21 22:59 06:59 14:59 Intake Total 900 650 Output Total 1450 Balance -550 650 Lab Results Last 24 Hours: Laboratory Results - last 24 hr 02/23/21 02/23/21 02/23/21 Range/Units 08:22 12:10 16:42 WBC (4.23-9.07) K/mm3 RBC (4.63-6.08) M/mm3 Hgb (13.7-17.5) gm/dl Hct (40.1-51.0) % MCV (79.0-92.2) fl MCH (25.7-32.2) pg MCHC (32.2-35.5) g/dl RDW Std Deviation (35.1-43.9) fL Plt Count (163-337) K/mm3 MPV (9.4-12.3) fl Neut % (Auto) (34.0-67.9) % Lymph % (Auto) (21.8-53.1) % [place] % (Auto) (5.3-12.2) % Eos % (Auto) (0.8-7.0) Baso % (Auto) (0.1-1.2) % Neut # (Auto) (1.78-5.38) K/mm3 Lymph # (Auto) (1.32-3.57) K/mm3 [place] # (Auto) (0.30-0.82) K/mm3 Eos # (Auto) (0.04-0.54) K/mm3 Baso # (Auto) (0.01-0.08) K/mm3 Manual Slide Review Sodium (136-145) mEq/L Potassium (3.5-5.1) mEq/L Chloride (98-107) mEq/L Carbon Dioxide (21-32) mEq/L Anion Gap (5-15) BUN (7-18) mg/dL Creatinine (0.7-1.3) mg/dL Est Cr Clr Drug Dosing mL/min Estimated GFR (MDRD) (>60) mL/min BUN/Creatinine Ratio (14-18) Glucose (70-99) mg/dL POC Glucose 186 H 309 H 171 H (70-99) mg/dL Calcium (8.5-10.1) mg/dL Total Bilirubin (0.2-1.0) mg/dL AST (15-37) U/L ALT (16-63) U/L Alkaline Phosphatase (46-116) U/L C-Reactive Protein (<1.0) mg/dL Total Protein (6.4-8.2) g/dl Albumin (3.4-5.0) g/dl Globulin gm/dL Albumin/Globulin Ratio (1-2) 02/23/21 02/24/21 02/24/21 Range/Units 20:24 05:06 05:06 WBC 7.39 (4.23-9.07) K/mm3 RBC 4.22 L (4.63-6.08) M/mm3 Hgb 13.3 L (13.7-17.5) gm/dl Hct 39.5 L (40.1-51.0) % MCV 93.6 H (79.0-92.2) fl MCH 31.5 (25.7-32.2) pg MCHC 33.7 (32.2-35.5) g/dl RDW Std Deviation 39.0 (35.1-43.9) fL Plt Count 319 (163-337) K/mm3 MPV 9.3 L (9.4-12.3) fl Neut % (Auto) 93.9 H (34.0-67.9) % Lymph % (Auto) 3.2 L (21.8-53.1) % [place] % (Auto) 2.8 L (5.3-12.2) % Eos % (Auto) 0 L (0.8-7.0) Baso % (Auto) 0.0 L (0.1-1.2) % Neut # (Auto) 6.93 H (1.78-5.38) K/mm3 Lymph # (Auto) 0.24 L (1.32-3.57) K/mm3 [place] # (Auto) 0.21 L (0.30-0.82) K/mm3 Eos # (Auto) 0.00 L (0.04-0.54) K/mm3 Baso # (Auto) 0.00 L (0.01-0.08) K/mm3 Manual Slide Review Abnormal smear Sodium 140 (136-145) mEq/L Potassium 4.6 (3.5-5.1) mEq/L Chloride 104 (98-107) mEq/L Carbon Dioxide 30 (21-32) mEq/L Anion Gap 10.6 (5-15) BUN 23 H (7-18) mg/dL Creatinine 0.8 (0.7-1.3) mg/dL Est Cr Clr Drug Dosing 89.60 mL/min Estimated GFR (MDRD) > 60 (>60) mL/min BUN/Creatinine Ratio 28.8 H (14-18) Glucose 160 H (70-99) mg/dL POC Glucose 174 H (70-99) mg/dL Calcium 7.8 L (8.5-10.1) mg/dL Total Bilirubin 0.8 (0.2-1.0) mg/dL AST 61 H (15-37) U/L ALT 161 H (16-63) U/L Alkaline Phosphatase 58 (46-116) U/L C-Reactive Protein 1.9 H* (<1.0) mg/dL Total Protein 5.1 L (6.4-8.2) g/dl Albumin 2.3 L (3.4-5.0) g/dl Globulin 2.8 gm/dL Albumin/Globulin Ratio 0.8 L (1-2) 02/24/ Range/Units 05:47 WBC (4.23-9.07) K/mm3 RBC (4.63-6.08) M/mm3 Hgb (13.7-17.5) gm/dl Hct (40.1-51.0) % MCV (79.0-92.2) fl MCH (25.7-32.2) pg MCHC (32.2-35.5) g/dl RDW Std Deviation (35.1-43.9) fL Plt Count (163-337) K/mm3 MPV (9.4-12.3) fl Neut % (Auto) (34.0-67.9) % Lymph % (Auto) (21.8-53.1) % [place] % (Auto) (5.3-12.2) % Eos % (Auto) (0.8-7.0) Baso % (Auto) (0.1-1.2) % Neut # (Auto) (1.78-5.38) K/mm3 Lymph # (Auto) (1.32-3.57) K/mm3 [place] # (Auto) (0.30-0.82) K/mm3 Eos # (Auto) (0.04-0.54) K/mm3 Baso # (Auto) (0.01-0.08) K/mm3 Manual Slide Review Sodium (136-145) mEq/L Potassium (3.5-5.1) mEq/L Chloride (98-107) mEq/L Carbon Dioxide (21-32) mEq/L Anion Gap (5-15) BUN (7-18) mg/dL Creatinine (0.7-1.3) mg/dL Est Cr Clr Drug Dosing mL/min Estimated GFR (MDRD) (>60) mL/min BUN/Creatinine Ratio (14-18) Glucose (70-99) mg/dL POC Glucose 150 H (70-99) mg/dL Calcium (8.5-10.1) mg/dL Total Bilirubin (0.2-1.0) mg/dL AST (15-37) U/L ALT (16-63) U/L Alkaline Phosphatase (46-116) U/L C-Reactive Protein (<1.0) mg/dL Total Protein (6.4-8.2) g/dl Albumin (3.4-5.0) g/dl Globulin gm/dL Albumin/Globulin Ratio (1-2) Med Orders - Current: Current Medications Acetaminophen (Acetaminophen 325 Mg Tab) 650 mg PO Q4H PRN PRN Reason: Fever Greater Than 101 Last Admin: 02/22/21 02:01 Dose: 650 mg Documented by: Albuterol/Ipratropium (Albuterol/Ipratropium 3.0-0.5 Mg/3 Ml Neb Soln) 3 ml NEB Q4HRRT PRN PRN Reason: Shortness of Breath Last Admin: 02/23/21 20:15 Dose: 3 ml Documented by: Ascorbic Acid (Ascorbic Acid 500 Mg Tab) 500 mg PO BID [facility] Last Admin: 02/24/21 08:57 Dose: 500 mg Documented by: Baricitinib (Baricitinib 2 Mg Tab) 4 mg PO DAILY [facility] Stop: 03/07/21 09:01 Last Admin: 02/24/21 08:56 Dose: 4 mg Documented by: Benzonatate (Benzonatate 100 Mg Cap) 100 mg PO Q8H PRN PRN Reason: Cough Last Admin: 02/24/21 00:03 Dose: 100 mg Documented by: Cholecalciferol (Cholecalciferol (Vitamin D3) 5,000 Unit Cap) 5,000 unit PO DAILY [facility] Last Admin: 02/24/21 08:57 Dose: 5,000 unit Documented by: Enoxaparin Sodium (Enoxaparin 100 Mg/1 Ml Syringe) 90 mg SUBCUT BID [facility] Last Admin: 02/24/21 08:58 Dose: 90 mg Documented by: Guaifenesin/Phenylephrine HCl (Guaifenesin/Dextromethorphan 100-10 Mg/5 Ml Soln 5 Ml Cup) 5 ml PO Q6H PRN PRN Reason: Cough Last Admin: 02/24/21 05:44 Dose: 5 ml Documented by: Remdesivir 100 mg/ Sodium (Chloride) 100 mls @ 100 mls/hr IV Q24H [facility] Stop: 02/24/21 13:59 Last Admin: 02/23/21 13:24 Dose: 100 mls/hr Documented by: Insulin Human Lispro (Insulin Lispro 100 Unit/Ml 3 Ml Kwikpen) 0 unit SUBCUT QIDACANDBED [facility]; Protocol Last Admin: 02/24/21 09:12 Dose: 2 units Documented by: Methylprednisolone Sodium Succinate (Methylprednisolone Sodium Succinate 125 Mg/2 Ml Sdv) 60 mg IVPUSH Q6H [facility] Last Admin: 02/24/21 08:58 Dose: 60 mg Documented by: Rosuvastatin Calcium (Rosuvastatin 10 Mg Tab) 5 mg PO DAILY [facility] Last Admin: 02/24/21 08:57 Dose: 5 mg Documented by: Sodium Chloride (Sodium Chloride 0.9% 10 Ml Syringe) 10 ml FLUSH ASDIRECTED PRN PRN Reason: Keep Vein Open Last Admin: 02/20/21 09:40 Dose: 10 ml Documented by: Zinc Sulfate (Zinc Sulfate 220 Mg Cap) 220 mg PO DAILY [facility] Last Admin: 02/24/21 08:57 Dose: 220 mg Documented by: Discontinued Medications Albuterol/Ipratropium (Albuterol/Ipratropium 3.0-0.5 Mg/3 Ml Neb Soln) 3 ml NEB ONETIME ONE Stop: 02/20/21 09:57 Last Admin: 02/20/21 10:24 Dose: 3 ml Documented by: Dexamethasone (Dexamethasone 4 Mg/Ml Sdv) 6 mg IVPUSH ONETIME ONE Stop: 02/20/21 12:16 Last Admin: 02/20/21 15:34 Dose: Not Given Documented by: Enoxaparin Sodium (Enoxaparin 40 Mg/0.4 Ml Syringe) 40 mg SUBCUT DAILY [facility] Last Admin: 02/21/21 08:20 Dose: 40 mg Documented by: Sodium Chloride (Normal Saline) 1,000 mls @ 1,000 mls/hr IV .BOLUS [facility] Last Admin: 02/20/21 09:40 Dose: 1,000 mls/hr Documented by: Remdesivir 200 mg/ Sodium (Chloride) 250 mls @ 250 mls/hr IV ONETIME ONE Stop: 02/20/21 13:39 Last Admin: 02/20/21 12:47 Dose: 250 mls/hr Documented by: Methylprednisolone Sodium Succinate (Methylprednisolone Sodium Succinate 125 Mg/2 Ml Sdv) 125 mg IVPUSH ONETIME ONE Stop: 02/20/21 12:26 Last Admin: 02/20/21 12:45 Dose: 125 mg Documented by: Methylprednisolone Sodium Succinate (Methylprednisolone Sodium Succinate 40 Mg/1 Ml Sdv) 40 mg IVPUSH Q6H [facility] Last Admin: 02/22/21 06:41 Dose: 40 mg Documented by: Methylprednisolone Sodium Succinate (Methylprednisolone Sodium Succinate 125 Mg/2 Ml Sdv) 40 mg IVPUSH Q6H SUPRIYA Last Admin: 02/23/21 06:00 Dose: 40 mg Documented by: - Exam Physical Findings Comments:: General: Alert, Oriented, Cooperative HEENT: Pupils Equal, Pupils Reactive, EOMI Neck: Supple, Trachea Midline, No JVD, No Thyromegaly Lungs: Normal Respiratory Effort, Decreased Breath Sounds, crackles b/l GI/Abdominal Exam: Normal Bowel Sounds, Soft, Non-Tender, No Organomegaly Extremities: Normal Inspection, Normal Range of Motion, Non-Tender, No Pedal Edema Skin: Warm, Dry, Intact Neurological: No New Focal Deficit, Normal Speech, Normal Tone, Strength Equal Bilateral, Reflexes Equal Bilateral, Sensation Intact Psy/Mental Status: Alert, Normal Affect, Normal Mood - Patient Data Lab Results Last 24 hrs: Laboratory Results - last 24 hr 02/23/21 02/23/21 02/23/21 Range/Units 08:22 12:10 16:42 WBC (4.23-9.07) K/mm3 RBC (4.63-6.08) M/mm3 Hgb (13.7-17.5) gm/dl Hct (40.1-51.0) % MCV (79.0-92.2) fl MCH (25.7-32.2) pg MCHC (32.2-35.5) g/dl RDW Std Deviation (35.1-43.9) fL Plt Count (163-337) K/mm3 MPV (9.4-12.3) fl Neut % (Auto) (34.0-67.9) % Lymph % (Auto) (21.8-53.1) % [place] % (Auto) (5.3-12.2) % Eos % (Auto) (0.8-7.0) Baso % (Auto) (0.1-1.2) % Neut # (Auto) (1.78-5.38) K/mm3 Lymph # (Auto) (1.32-3.57) K/mm3 [place] # (Auto) (0.30-0.82) K/mm3 Eos # (Auto) (0.04-0.54) K/mm3 Baso # (Auto) (0.01-0.08) K/mm3 Manual Slide Review Sodium (136-145) mEq/L Potassium (3.5-5.1) mEq/L Chloride (98-107) mEq/L Carbon Dioxide (21-32) mEq/L Anion Gap (5-15) BUN (7-18) mg/dL Creatinine (0.7-1.3) mg/dL Est Cr Clr Drug Dosing mL/min Estimated GFR (MDRD) (>60) mL/min BUN/Creatinine Ratio (14-18) Glucose (70-99) mg/dL POC Glucose 186 H 309 H 171 H (70-99) mg/dL Calcium (8.5-10.1) mg/dL Total Bilirubin (0.2-1.0) mg/dL AST (15-37) U/L ALT (16-63) U/L Alkaline Phosphatase (46-116) U/L C-Reactive Protein (<1.0) mg/dL Total Protein (6.4-8.2) g/dl Albumin (3.4-5.0) g/dl Globulin gm/dL Albumin/Globulin Ratio (1-2) 02/23/21 02/24/21 02/24/21 Range/Units 20:24 05:06 05:06 WBC 7.39 (4.23-9.07) K/mm3 RBC 4.22 L (4.63-6.08) M/mm3 Hgb 13.3 L (13.7-17.5) gm/dl Hct 39.5 L (40.1-51.0) % MCV 93.6 H (79.0-92.2) fl MCH 31.5 (25.7-32.2) pg MCHC 33.7 (32.2-35.5) g/dl RDW Std Deviation 39.0 (35.1-43.9) fL Plt Count 319 (163-337) K/mm3 MPV 9.3 L (9.4-12.3) fl Neut % (Auto) 93.9 H (34.0-67.9) % Lymph % (Auto) 3.2 L (21.8-53.1) % [place] % (Auto) 2.8 L (5.3-12.2) % Eos % (Auto) 0 L (0.8-7.0) Baso % (Auto) 0.0 L (0.1-1.2) % Neut # (Auto) 6.93 H (1.78-5.38) K/mm3 Lymph # (Auto) 0.24 L (1.32-3.57) K/mm3 [place] # (Auto) 0.21 L (0.30-0.82) K/mm3 Eos # (Auto) 0.00 L (0.04-0.54) K/mm3 Baso # (Auto) 0.00 L (0.01-0.08) K/mm3 Manual Slide Review Abnormal smear Sodium 140 (136-145) mEq/L Potassium 4.6 (3.5-5.1) mEq/L Chloride 104 (98-107) mEq/L Carbon Dioxide 30 (21-32) mEq/L Anion Gap 10.6 (5-15) BUN 23 H (7-18) mg/dL Creatinine 0.8 (0.7-1.3) mg/dL Est Cr Clr Drug Dosing 89.60 mL/min Estimated GFR (MDRD) > 60 (>60) mL/min BUN/Creatinine Ratio 28.8 H (14-18) Glucose 160 H (70-99) mg/dL POC Glucose 174 H (70-99) mg/dL Calcium 7.8 L (8.5-10.1) mg/dL Total Bilirubin 0.8 (0.2-1.0) mg/dL AST 61 H (15-37) U/L ALT 161 H (16-63) U/L Alkaline Phosphatase 58 (46-116) U/L C-Reactive Protein 1.9 H* (<1.0) mg/dL Total Protein 5.1 L (6.4-8.2) g/dl Albumin 2.3 L (3.4-5.0) g/dl Globulin 2.8 gm/dL Albumin/Globulin Ratio 0.8 L (1-2) 02/24/21 Range/Units 05:47 WBC (4.23-9.07) K/mm3 RBC (4.63-6.08) M/mm3 Hgb (13.7-17.5) gm/dl Hct (40.1-51.0) % MCV (79.0-92.2) fl MCH (25.7-32.2) pg MCHC (32.2-35.5) g/dl RDW Std Deviation (35.1-43.9) fL Plt Count (163-337) K/mm3 MPV (9.4-12.3) fl Neut % (Auto) (34.0-67.9) % Lymph % (Auto) (21.8-53.1) % [place] % (Auto) (5.3-12.2) % Eos % (Auto) (0.8-7.0) Baso % (Auto) (0.1-1.2) % Neut # (Auto) (1.78-5.38) K/mm3 Lymph # (Auto) (1.32-3.57) K/mm3 [place] # (Auto) (0.30-0.82) K/mm3 Eos # (Auto) (0.04-0.54) K/mm3 Baso # (Auto) (0.01-0.08) K/mm3 Manual Slide Review Sodium (136-145) mEq/L Potassium (3.5-5.1) mEq/L Chloride (98-107) mEq/L Carbon Dioxide (21-32) mEq/L Anion Gap (5-15) BUN (7-18) mg/dL Creatinine (0.7-1.3) mg/dL Est Cr Clr Drug Dosing mL/min Estimated GFR (MDRD) (>60) mL/min BUN/Creatinine Ratio (14-18) Glucose (70-99) mg/dL POC Glucose 150 H (70-99) mg/dL Calcium (8.5-10.1) mg/dL Total Bilirubin (0.2-1.0) mg/dL AST (15-37) U/L ALT (16-63) U/L Alkaline Phosphatase (46-116) U/L C-Reactive Protein (<1.0) mg/dL Total Protein (6.4-8.2) g/dl Albumin (3.4-5.0) g/dl Globulin gm/dL Albumin/Globulin Ratio (1-2) Result Diagrams: 02/24/21 05:06 02/24/21 05:06 Sepsis Event Note - Evaluation Sepsis Screening Result: No Definite Risk - Focused Exam Vital Signs: Vital Signs Temp Pulse Resp BP Pulse Ox Pulse Ox 02/24/21 08:00 36.2 C 25 H 149/74 H 81 L 02/24/21 06:09 90 L 02/24/21 05:50 86 L 02/24/21 04:00 36.2 C 76 20 133/81 88 L 02/24/21 01:53 199 H 02/24/21 00:05 36.2 C 81 16 147/68 H 95 - Problem List Review Problem List Initiated/Reviewed/Updated: Yes - My Orders Last 24 Hours: My Active Orders 02/23/21 09:00 Cholecalciferol (Vitamin D3) [Vitamin D3] 5,000 unit PO DAILY methylPREDNISolone Sod Succ [Solu-MEDROL] 60 mg IVPUSH Q6H 02/23/21 10:33 Benzonatate [Tessalon Perles] 100 mg PO Q8H PRN 02/24/21 08:27 Code Status [Resuscitation Status] Routine 02/25/21 05:00 CBC WITH AUTO DIFF [HEME] DAILY COMPREHENSIVE METABOLIC PN,CMP [CHEM] DAILY CRP [C-REACTIVE PROTEIN] [CHEM] DAILY 02/26/21 05:00 CBC WITH AUTO DIFF [HEME] DAILY COMPREHENSIVE METABOLIC PN,CMP [CHEM] DAILY CRP [C-REACTIVE PROTEIN] [CHEM] DAILY 02/27/21 05:00 CBC WITH AUTO DIFF [HEME] DAILY COMPREHENSIVE METABOLIC PN,CMP [CHEM] DAILY CRP [C-REACTIVE PROTEIN] [CHEM] DAILY - Plan Plan:: Patient is a 65-year-old male with a past medical history as listed below which does include asthma who presents to the emergency department with a chief complaint of low oxygen at home. Patient states that he began to lose his sense of taste and smell roughly a week to a week and a half ago before admission on 02/20. In the ER it was confirmed that he was COVID-19 positive. 1. Acute hypoxic respiratory failure in the setting of COVID-19. Covid 19 pneumonia Continue supplemental oxygen and wean as tolerated or advance as tolerated. Keep oxygen saturation greater than 90 % at all times RT consult. Continue Solu-Medrol to 60 mg every 6 hours. Remdesivir protocol [AST and ALT increased but the increase could be due to Covid 19 infection. Considering his worsening condition, I would like to let him complete the course] Baricitinib 4mg daily (discussed with who agreed to start it) Lovenox 90 mg twice daily Continue vitamin supplements with vitamin C and zinc. Depending on his clinical course will evaluate for monoclonal antibodies/DMARDs. Encourage proning Incentive spirometry encouraged. Bronchodilators as necessary. 2. Hyperglycemia. hemoglobin A1c 6.3 Invoke hospital hyperglycemia protocol if found to be diabetic. All other medical comorbidities are stable and nonactive conditions, will continue home medications at regular dose. CODE STATUS: Full code. DVT prophylaxis with enoxaparin. Prognosis: guarded. updated to Length of stay greater then 96 hours due to slow response to treatment.
[2021-02-24] MEDS: Albuterol/Ipratropium 3.0-0.5 MG/3 ML Neb Soln NEB PRN ×3 (10:04→20:48)
[2021-02-24] MEDS: REMDESIVIR 100 MG in Sodium Chloride 0.9% 100 ML IV SCH (12:30)
[2021-02-25] MEDS: methylPREDNISolone Sodium Succinate 125 MG/2 ML SDV IVPUSH SCH ×4 (02:56→20:03)
[2021-02-25] MEDS: guaiFENesin/Dextromethorphan 100-10 MG/5 ML Soln 5 ML Cup PO PRN ×2 (05:46→17:04)
[2021-02-25] MEDS: Benzonatate 100 MG Cap PO PRN ×2 (05:46→20:51)
[2021-02-25] MEDS: Zinc Sulfate 220 MG Cap PO SCH (07:59)
[2021-02-25] MEDS: Ascorbic Acid 500 MG Tab PO SCH ×2 (07:59→20:01)
[2021-02-25] MEDS: Rosuvastatin 10 MG Tab PO SCH (07:59)
[2021-02-25] MEDS: Cholecalciferol (Vitamin D3) 5,000 UNIT Cap PO SCH (08:01)
[2021-02-25] MEDS: Enoxaparin 100 MG/1 ML Syringe SUBCUT SCH ×2 (08:01→20:01)
[2021-02-25] MEDS: Insulin Lispro 100 Unit/ML 3 ML KwikPen SUBCUT SCH ×4 (08:48→21:00)
[2021-02-25] MEDS: Albuterol/Ipratropium 3.0-0.5 MG/3 ML Neb Soln NEB PRN ×3 (09:05→19:48)
--- NOTE | 2021-02-25 12:21 | PCM.PN ---
- General Info Date of Service: 02/25/21 Admission Dx/Problem (Free Text): Admission Diagnosis/Problem Admission Diagnosis/Problem Hypoxia Subjective Update: Generally speaking, patient has improved. He is also feeling better, less sob. Denies fever, chills, nausea, vomiting, or diarrhea Early this morning patient was on 50 L with FiO2 80%. But late this morning she is back on 60 L with FiO2 100% due to desaturation from her exercise and physical activity. Instructed RN and RT to keep his SpO2 > 90% at all time CRP 1.6 today - Review of Systems Systems Review Comment:: Positive for shortness of breath. All other systems were reviewed and negative. - Patient Data Vitals - Most Recent: Last Vital Signs Temp 36.4 C 02/25/21 07:42 Pulse 75 02/25/21 07:42 Resp 26 H 02/25/21 07:42 BP 142/80 H 02/25/21 07:42 Pulse Ox 85 L 02/25/21 09:06 Weight - Most Recent: 90.718 kg I&O - Last 24 Hours: Intake & Output 02/24/21 02/25/21 02/25/21 22:59 06:59 14:59 Intake Total 750 400 Output Total 1150 Balance -400 400 Lab Results Last 24 Hours: Laboratory Results - last 24 hr 02/24/21 02/24/21 02/25/21 Range/Units 16:31 20:05 05:48 WBC (4.23-9.07) K/mm3 RBC (4.63-6.08) M/mm3 Hgb (13.7-17.5) gm/dl Hct (40.1-51.0) % MCV (79.0-92.2) fl MCH (25.7-32.2) pg MCHC (32.2-35.5) g/dl RDW Std Deviation (35.1-43.9) fL Plt Count (163-337) K/mm3 MPV (9.4-12.3) fl Neut % (Auto) (34.0-67.9) % Lymph % (Auto) (21.8-53.1) % [place] % (Auto) (5.3-12.2) % Eos % (Auto) (0.8-7.0) Baso % (Auto) (0.1-1.2) % Neut # (Auto) (1.78-5.38) K/mm3 Lymph # (Auto) (1.32-3.57) K/mm3 [place] # (Auto) (0.30-0.82) K/mm3 Eos # (Auto) (0.04-0.54) K/mm3 Baso # (Auto) (0.01-0.08) K/mm3 Manual Slide Review Sodium (136-145) mEq/L Potassium (3.5-5.1) mEq/L Chloride (98-107) mEq/L Carbon Dioxide (21-32) mEq/L Anion Gap (5-15) BUN (7-18) mg/dL Creatinine (0.7-1.3) mg/dL Est Cr Clr Drug Dosing mL/min Estimated GFR (MDRD) (>60) mL/min BUN/Creatinine Ratio (14-18) Glucose (70-99) mg/dL POC Glucose 165 H 179 H 168 H (70-99) mg/dL Calcium (8.5-10.1) mg/dL Total Bilirubin (0.2-1.0) mg/dL AST (15-37) U/L ALT (16-63) U/L Alkaline Phosphatase (46-116) U/L C-Reactive Protein (<1.0) mg/dL Total Protein (6.4-8.2) g/dl Albumin (3.4-5.0) g/dl Globulin gm/dL Albumin/Globulin Ratio (1-2) 02/25/21 02/25/21 02/25/21 Range/Units 06:25 06:25 12:05 WBC 7.74 (4.23-9.07) K/mm3 RBC 4.06 L (4.63-6.08) M/mm3 Hgb 13.0 L (13.7-17.5) gm/dl Hct 37.7 L (40.1-51.0) % MCV 92.9 H (79.0-92.2) fl MCH 32.0 (25.7-32.2) pg MCHC 34.5 (32.2-35.5) g/dl RDW Std Deviation 38.9 (35.1-43.9) fL Plt Count 308 (163-337) K/mm3 MPV 9.2 L (9.4-12.3) fl Neut % (Auto) 95.8 H (34.0-67.9) % Lymph % (Auto) 1.8 L (21.8-53.1) % [place] % (Auto) 2.3 L (5.3-12.2) % Eos % (Auto) 0 L (0.8-7.0) Baso % (Auto) 0.0 L (0.1-1.2) % Neut # (Auto) 7.41 H (1.78-5.38) K/mm3 Lymph # (Auto) 0.14 L (1.32-3.57) K/mm3 [place] # (Auto) 0.18 L (0.30-0.82) K/mm3 Eos # (Auto) 0.00 L (0.04-0.54) K/mm3 Baso # (Auto) 0.00 L (0.01-0.08) K/mm3 Manual Slide Review Abnormal smear Sodium 136 (136-145) mEq/L Potassium 4.9 (3.5-5.1) mEq/L Chloride 101 (98-107) mEq/L Carbon Dioxide 31 (21-32) mEq/L Anion Gap 8.9 (5-15) BUN 22 H (7-18) mg/dL Creatinine 0.7 (0.7-1.3) mg/dL Est Cr Clr Drug Dosing 102.40 mL/min Estimated GFR (MDRD) > 60 (>60) mL/min BUN/Creatinine Ratio 31.4 H (14-18) Glucose 182 H (70-99) mg/dL POC Glucose 256 H (70-99) mg/dL Calcium 7.6 L (8.5-10.1) mg/dL Total Bilirubin 0.8 (0.2-1.0) mg/dL AST 48 H (15-37) U/L ALT 158 H (16-63) U/L Alkaline Phosphatase 54 (46-116) U/L C-Reactive Protein 1.6 H* (<1.0) mg/dL Total Protein 5.0 L (6.4-8.2) g/dl Albumin 2.2 L (3.4-5.0) g/dl Globulin 2.8 gm/dL Albumin/Globulin Ratio 0.8 L (1-2) Med Orders - Current: Current Medications Acetaminophen (Acetaminophen 325 Mg Tab) 650 mg PO Q4H PRN PRN Reason: Fever Greater Than 101 Last Admin: 02/22/21 02:01 Dose: 650 mg Documented by: Albuterol/Ipratropium (Albuterol/Ipratropium 3.0-0.5 Mg/3 Ml Neb Soln) 3 ml NEB Q4HRRT PRN PRN Reason: Shortness of Breath Last Admin: 02/25/21 09:05 Dose: 3 ml Documented by: Ascorbic Acid (Ascorbic Acid 500 Mg Tab) 500 mg PO BID PENDING SALE TO [facility] Last Admin: 02/25/21 07:59 Dose: 500 mg Documented by: Baricitinib (Baricitinib 2 Mg Tab) 4 mg PO DAILY PENDING SALE TO [facility] Stop: 03/07/21 09:01 Last Admin: 02/25/21 08:01 Dose: 4 mg Documented by: Benzonatate (Benzonatate 100 Mg Cap) 100 mg PO Q8H PRN PRN Reason: Cough Last Admin: 02/25/21 05:46 Dose: 100 mg Documented by: Cholecalciferol (Cholecalciferol (Vitamin D3) 5,000 Unit Cap) 5,000 unit PO DAILY PENDING SALE TO [facility] Last Admin: 02/25/21 08:01 Dose: 5,000 unit Documented by: Enoxaparin Sodium (Enoxaparin 100 Mg/1 Ml Syringe) 90 mg SUBCUT BID PENDING SALE TO [facility] Last Admin: 02/25/21 08:01 Dose: 90 mg Documented by: Guaifenesin/Phenylephrine HCl (Guaifenesin/Dextromethorphan 100-10 Mg/5 Ml Soln 5 Ml Cup) 5 ml PO Q6H PRN PRN Reason: Cough Last Admin: 02/25/21 05:46 Dose: 5 ml Documented by: Insulin Human Lispro (Insulin Lispro 100 Unit/Ml 3 Ml Kwikpen) 0 unit SUBCUT QIDACANDBED PENDING SALE TO [facility]; Protocol Last Admin: 02/25/21 12:08 Dose: 6 units Documented by: Methylprednisolone Sodium Succinate (Methylprednisolone Sodium Succinate 125 M g/2 Ml Sdv) 60 mg IVPUSH Q6H PENDING SALE TO [facility] Last Admin: 02/25/21 08:01 Dose: 60 mg Documented by: Rosuvastatin Calcium (Rosuvastatin 10 Mg Tab) 5 mg PO DAILY PENDING SALE TO [facility] Last Admin: 02/25/21 07:59 Dose: 5 mg Documented by: Sodium Chloride (Sodium Chloride 0.9% 10 Ml Syringe) 10 ml FLUSH ASDIRECTED PRN PRN Reason: Keep Vein Open Last Admin: 02/20/21 09:40 Dose: 10 ml Documented by: Zinc Sulfate (Zinc Sulfate 220 Mg Cap) 220 mg PO DAILY PENDING SALE TO [facility] Last Admin: 02/25/21 07:59 Dose: 220 mg Documented by: Discontinued Medications Albuterol/Ipratropium (Albuterol/Ipratropium 3.0-0.5 Mg/3 Ml Neb Soln) 3 ml NEB ONETIME ONE Stop: 02/20/21 09:57 Last Admin: 02/20/21 10:24 Dose: 3 ml Documented by: Dexamethasone (Dexamethasone 4 Mg/Ml Sdv) 6 mg IVPUSH ONETIME ONE Stop: 02/20/21 12:16 Last Admin: 02/20/21 15:34 Dose: Not Given Documented by: Enoxaparin Sodium (Enoxaparin 40 Mg/0.4 Ml Syringe) 40 mg SUBCUT DAILY PENDING SALE TO [facility] Last Admin: 02/21/21 08:20 Dose: 40 mg Documented by: Sodium Chloride (Normal Saline) 1,000 mls @ 1,000 mls/hr IV .BOLUS PENDING SALE TO [facility] Last Admin: 02/20/21 09:40 Dose: 1,000 mls/hr Documented by: Remdesivir 200 mg/ Sodium (Chloride) 250 mls @ 250 mls/hr IV ONETIME ONE Stop: 02/20/21 13:39 Last Admin: 02/20/21 12:47 Dose: 250 mls/hr Documented by: Remdesivir 100 mg/ Sodium (Chloride) 100 mls @ 100 mls/hr IV Q24H PENDING SALE TO [facility] Stop: 02/24/21 13:59 Last Admin: 02/24/21 12:30 Dose: 100 mls/hr Documented by: Methylprednisolone Sodium Succinate (Methylprednisolone Sodium Succinate 125 Mg/2 Ml Sdv) 125 mg IVPUSH ONETIME ONE Stop: 02/20/21 12:26 Last Admin: 02/20/21 12:45 Dose: 125 mg Documented by: Methylprednisolone Sodium Succinate (Methylprednisolone Sodium Succinate 40 Mg/1 Ml Sdv) 40 mg IVPUSH Q6H PENDING SALE TO [facility] Last Admin: 02/22/21 06:41 Dose: 40 mg Documented by: Methylprednisolone Sodium Succinate (Methylprednisolone Sodium Succinate 125 Mg/2 Ml Sdv) 40 mg IVPUSH Q6H SUPRIYA Last Admin: 02/23/21 06:00 Dose: 40 mg Documented by: - Exam Physical Findings Comments:: General: Alert, Oriented, Cooperative HEENT: Pupils Equal, Pupils Reactive, EOMI Neck: Supple, Trachea Midline, No JVD, No Thyromegaly Lungs: Normal Respiratory Effort, Decreased Breath Sounds, crackles b/l GI/Abdominal Exam: Normal Bowel Sounds, Soft, Non-Tender, No Organomegaly Extremities: Normal Inspection, Normal Range of Motion, Non-Tender, No Pedal Edema Skin: Warm, Dry, Intact Neurological: No New Focal Deficit, Normal Speech, Normal Tone, Strength Equal Bilateral, Reflexes Equal Bilateral, Sensation Intact Psy/Mental Status: Alert, Normal Affect, Normal Mood - Patient Data Lab Results Last 24 hrs: Laboratory Results - last 24 hr 02/24/21 02/24/21 02/25/21 Range/Units 16:31 20:05 05:48 WBC (4.23-9.07) K/mm3 RBC (4.63-6.08) M/mm3 Hgb (13.7-17.5) gm/dl Hct (40.1-51.0) % MCV (79.0-92.2) fl MCH (25.7-32.2) pg MCHC (32.2-35.5) g/dl RDW Std Deviation (35.1-43.9) fL Plt Count (163-337) K/mm3 MPV (9.4-12.3) fl Neut % (Auto) (34.0-67.9) % Lymph % (Auto) (21.8-53.1) % [place] % (Auto) (5.3-12.2) % Eos % (Auto) (0.8-7.0) Baso % (Auto) (0.1-1.2) % Neut # (Auto) (1.78-5.38) K/mm3 Lymph # (Auto) (1.32-3.57) K/mm3 [place] # (Auto) (0.30-0.82) K/mm3 Eos # (Auto) (0.04-0.54) K/mm3 Baso # (Auto) (0.01-0.08) K/mm3 Manual Slide Review Sodium (136-145) mEq/L Potassium (3.5-5.1) mEq/L Chloride (98-107) mEq/L Carbon Dioxide (21-32) mEq/L Anion Gap (5-15) BUN (7-18) mg/dL Creatinine (0.7-1.3) mg/dL Est Cr Clr Drug Dosing mL/min Estimated GFR (MDRD) (>60) mL/min BUN/Creatinine Ratio (14-18) Glucose (70-99) mg/dL POC Glucose 165 H 179 H 168 H (70-99) mg/dL Calcium (8.5-10.1) mg/dL Total Bilirubin (0.2-1.0) mg/dL AST (15-37) U/L ALT (16-63) U/L Alkaline Phosphatase (46-116) U/L C-Reactive Protein (<1.0) mg/dL Total Protein (6.4-8.2) g/dl Albumin (3.4-5.0) g/dl Globulin gm/dL Albumin/Globulin Ratio (1-2) 02/25/21 02/25/21 02/25/21 Range/Units 06:25 06:25 12:05 WBC 7.74 (4.23-9.07) K/mm3 RBC 4.06 L (4.63-6.08) M/mm3 Hgb 13.0 L (13.7-17.5) gm/dl Hct 37.7 L (40.1-51.0) % MCV 92.9 H (79.0-92.2) fl MCH 32.0 (25.7-32.2) pg MCHC 34.5 (32.2-35.5) g/dl RDW Std Deviation 38.9 (35.1-43.9) fL Plt Count 308 (163-337) K/mm3 MPV 9.2 L (9.4-12.3) fl Neut % (Auto) 95.8 H (34.0-67.9) % Lymph % (Auto) 1.8 L (21.8-53.1) % [place] % (Auto) 2.3 L (5.3-12.2) % Eos % (Auto) 0 L (0.8-7.0) Baso % (Auto) 0.0 L (0.1-1.2) % Neut # (Auto) 7.41 H (1.78-5.38) K/mm3 Lymph # (Auto) 0.14 L (1.32-3.57) K/mm3 [place] # (Auto) 0.18 L (0.30-0.82) K/mm3 Eos # (Auto) 0.00 L (0.04-0.54) K/mm3 Baso # (Auto) 0.00 L (0.01-0.08) K/mm3 Manual Slide Review Abnormal smear Sodium 136 (136-145) mEq/L Potassium 4.9 (3.5-5.1) mEq/L Chloride 101 (98-107) mEq/L Carbon Dioxide 31 (21-32) mEq/L Anion Gap 8.9 (5-15) BUN 22 H (7-18) mg/dL Creatinine 0.7 (0.7-1.3) mg/dL Est Cr Clr Drug Dosing 102.40 mL/min Estimated GFR (MDRD) > 60 (>60) mL/min BUN/Creatinine Ratio 31.4 H (14-18) Glucose 182 H (70-99) mg/dL POC Glucose 256 H (70-99) mg/dL Calcium 7.6 L (8.5-10.1) mg/dL Total Bilirubin 0.8 (0.2-1.0) mg/dL AST 48 H (15-37) U/L ALT 158 H (16-63) U/L Alkaline Phosphatase 54 (46-116) U/L C-Reactive Protein 1.6 H* (<1.0) mg/dL Total Protein 5.0 L (6.4-8.2) g/dl Albumin 2.2 L (3.4-5.0) g/dl Globulin 2.8 gm/dL Albumin/Globulin Ratio 0.8 L (1-2) Result Diagrams: 02/25/21 06:25 02/25/21 06:25 Sepsis Event Note - Evaluation Sepsis Screening Result: No Definite Risk - Focused Exam Vital Signs: Vital Signs Temp Pulse Resp BP BP Pulse Ox Pulse Ox 02/25/21 09:06 85 L 02/25/21 07:42 36.4 C 75 26 H 142/80 H 88 L 02/25/21 06:46 88 L 02/25/21 04:00 36.6 C 81 28 H 131/77 100 02/25/21 00:31 36.4 C 71 28 H 147/90 H 96 91 L - Problem List Review Problem List Initiated/Reviewed/Updated: Yes - My Orders Last 24 Hours: My Active Orders 02/24/21 12:54 Code Status [Resuscitation Status] Routine 02/26/21 05:00 CBC WITH AUTO DIFF [HEME] DAILY COMPREHENSIVE METABOLIC PN,CMP [CHEM] DAILY CRP [C-REACTIVE PROTEIN] [CHEM] DAILY 02/27/21 05:00 CBC WITH AUTO DIFF [HEME] DAILY COMPREHENSIVE METABOLIC PN,CMP [CHEM] DAILY CRP [C-REACTIVE PROTEIN] [CHEM] DAILY - Plan Plan:: Patient is a 65-year-old male with a past medical history as listed below which does include asthma who presents to the emergency department with a chief complaint of low oxygen at home. Patient states that he began to lose his sense of taste and smell roughly a week to a week and a half ago before admission on 02/20. In the ER it was confirmed that he was COVID-19 positive. 1. Acute hypoxic respiratory failure in the setting of COVID-19. Covid 19 pneumonia Continue supplemental oxygen. Keep oxygen saturation greater than 90 % at all times Continue Solu-Medrol to 60 mg every 6 hours. Completed remdesivir Continue Baricitinib 4mg daily Lovenox 90 mg twice daily Continue vitamin supplements with vitamin C and zinc. Encourage proning Incentive spirometry encouraged. Bronchodilators as necessary. CRP 1.6 today CBC, CMP and CRP daily 2. Hyperglycemia. hemoglobin A1c 6.3 Invoke hospital hyperglycemia protocol if found to be diabetic. All other medical comorbidities are stable and nonactive conditions, will continue home medications at regular dose. CODE STATUS: Full code. DVT prophylaxis with enoxaparin. Prognosis: guarded. updated to Length of stay greater then 96 hours due to slow response to treatment.
[2021-02-26] MEDS: guaiFENesin/Dextromethorphan 100-10 MG/5 ML Soln 5 ML Cup PO PRN ×2 (02:28→19:56)
[2021-02-26] MEDS: methylPREDNISolone Sodium Succinate 125 MG/2 ML SDV IVPUSH SCH ×2 (02:28→08:11)
[2021-02-26] MEDS: Albuterol/Ipratropium 3.0-0.5 MG/3 ML Neb Soln NEB PRN ×3 (08:00→21:14)
[2021-02-26] MEDS: Zinc Sulfate 220 MG Cap PO SCH (08:11)
[2021-02-26] MEDS: Ascorbic Acid 500 MG Tab PO SCH ×2 (08:11→20:07)
[2021-02-26] MEDS: Enoxaparin 100 MG/1 ML Syringe SUBCUT SCH ×2 (08:11→20:01)
[2021-02-26] MEDS: Rosuvastatin 10 MG Tab PO SCH (08:12)
[2021-02-26] MEDS: Cholecalciferol (Vitamin D3) 5,000 UNIT Cap PO SCH (08:13)
[2021-02-26] MEDS: Insulin Lispro 100 Unit/ML 3 ML KwikPen SUBCUT SCH ×4 (08:20→21:00)
--- NOTE | 2021-02-26 11:00 | PCM.PN ---
- General Info Date of Service: 02/26/21 Admission Dx/Problem (Free Text): Admission Diagnosis/Problem Admission Diagnosis/Problem Hypoxia Subjective Update: Patient continues on 60 L of high flow nasal cannula. He does feel like he is stable although not making progress. He continues to have significant coughing. Potassium was 5.6 and repeat was 5.0. Functional Status: Reports: Pain Controlled - Review of Systems General: Reports: Fatigue HEENT: Reports: No Symptoms Pulmonary: Reports: Shortness of Breath, Cough Cardiovascular: Reports: No Symptoms Gastrointestinal: Reports: No Symptoms Musculoskeletal: Reports: No Symptoms Psychiatric: Reports: No Symptoms - Patient Data Vitals - Most Recent: Last Vital Signs Temp 97.7 F 02/26/21 08:00 Pulse 86 02/26/21 08:00 Resp 22 H 02/26/21 08:00 BP 118/69 02/26/21 08:00 Pulse Ox 92 L 02/26/21 08:35 Weight - Most Recent: 197 lb 9.6 oz I&O - Last 24 Hours: Intake & Output 02/25/21 02/26/21 02/26/21 22:59 06:59 14:59 Intake Total 940 250 Output Total 875 550 Balance 65 -300 Lab Results Last 24 Hours: Laboratory Results - last 24 hr 02/25/21 02/25/21 02/25/21 Range/Units 12:05 16:55 19:57 WBC (4.23-9.07) K/mm3 RBC (4.63-6.08) M/mm3 Hgb (13.7-17.5) gm/dl Hct (40.1-51.0) % MCV (79.0-92.2) fl MCH (25.7-32.2) pg MCHC (32.2-35.5) g/dl RDW Std Deviation (35.1-43.9) fL Plt Count (163-337) K/mm3 MPV (9.4-12.3) fl Neut % (Auto) (34.0-67.9) % Lymph % (Auto) (21.8-53.1) % [place] % (Auto) (5.3-12.2) % Eos % (Auto) (0.8-7.0) Baso % (Auto) (0.1-1.2) % Neut # (Auto) (1.78-5.38) K/mm3 Lymph # (Auto) (1.32-3.57) K/mm3 [place] # (Auto) (0.30-0.82) K/mm3 Eos # (Auto) (0.04-0.54) K/mm3 Baso # (Auto) (0.01-0.08) K/mm3 Manual Slide Review Sodium (136-145) mEq/L Potassium (3.5-5.1) mEq/L Chloride (98-107) mEq/L Carbon Dioxide (21-32) mEq/L Anion Gap (5-15) BUN (7-18) mg/dL Creatinine (0.7-1.3) mg/dL Est Cr Clr Drug Dosing mL/min Estimated GFR (MDRD) (>60) mL/min BUN/Creatinine Ratio (14-18) Glucose (70-99) mg/dL POC Glucose 256 H 168 H 195 H (70-99) mg/dL Calcium (8.5-10.1) mg/dL Magnesium (1.8-2.4) mg/dL Total Bilirubin (0.2-1.0) mg/dL AST (15-37) U/L ALT (16-63) U/L Alkaline Phosphatase (46-116) U/L C-Reactive Protein (<1.0) mg/dL Total Protein (6.4-8.2) g/dl Albumin (3.4-5.0) g/dl Globulin gm/dL Albumin/Globulin Ratio (1-2) 02/26/21 02/26/21 02/26/21 Range/Units 05:57 06:15 06:15 WBC 7.03 (4.23-9.07) K/mm3 RBC 4.20 L (4.63-6.08) M/mm3 Hgb 13.2 L (13.7-17.5) gm/dl Hct 38.9 L (40.1-51.0) % MCV 92.6 H (79.0-92.2) fl MCH 31.4 (25.7-32.2) pg MCHC 33.9 (32.2-35.5) g/dl RDW Std Deviation 38.8 (35.1-43.9) fL Plt Count 326 (163-337) K/mm3 MPV 9.3 L (9.4-12.3) fl Neut % (Auto) 95.1 H (34.0-67.9) % Lymph % (Auto) 2.1 L (21.8-53.1) % [place] % (Auto) 2.7 L (5.3-12.2) % Eos % (Auto) 0 L (0.8-7.0) Baso % (Auto) 0.0 L (0.1-1.2) % Neut # (Auto) 6.68 H (1.78-5.38) K/mm3 Lymph # (Auto) 0.15 L (1.32-3.57) K/mm3 [place] # (Auto) 0.19 L (0.30-0.82) K/mm3 Eos # (Auto) 0.00 L (0.04-0.54) K/mm3 Baso # (Auto) 0.00 L (0.01-0.08) K/mm3 Manual Slide Review Abnormal smear Sodium 137 (136-145) mEq/L Potassium 5.6 H (3.5-5.1) mEq/L Chloride 102 (98-107) mEq/L Carbon Dioxide 31 (21-32) mEq/L Anion Gap 9.6 (5-15) BUN 21 H (7-18) mg/dL Creatinine 0.8 (0.7-1.3) mg/dL Est Cr Clr Drug Dosing 89.60 mL/min Estimated GFR (MDRD) > 60 (>60) mL/min BUN/Creatinine Ratio 26.3 H (14-18) Glucose 171 H (70-99) mg/dL POC Glucose 180 H (70-99) mg/dL Calcium 7.7 L (8.5-10.1) mg/dL Magnesium (1.8-2.4) mg/dL Total Bilirubin 0.9 (0.2-1.0) mg/dL AST 26 (15-37) U/L ALT 127 H (16-63) U/L Alkaline Phosphatase 56 (46-116) U/L C-Reactive Protein 0.9 (<1.0) mg/dL Total Protein 5.1 L (6.4-8.2) g/dl Albumin 2.2 L (3.4-5.0) g/dl Globulin 2.9 gm/dL Albumin/Globulin Ratio 0.8 L (1-2) 02/26/21 Range/Units 09:29 WBC (4.23-9.07) K/mm3 RBC (4.63-6.08) M/mm3 Hgb (13.7-17.5) gm/dl Hct (40.1-51.0) % MCV (79.0-92.2) fl MCH (25.7-32.2) pg MCHC (32.2-35.5) g/dl RDW Std Deviation (35.1-43.9) fL Plt Count (163-337) K/mm3 MPV (9.4-12.3) fl Neut % (Auto) (34.0-67.9) % Lymph % (Auto) (21.8-53.1) % [place] % (Auto) (5.3-12.2) % Eos % (Auto) (0.8-7.0) Baso % (Auto) (0.1-1.2) % Neut # (Auto) (1.78-5.38) K/mm3 Lymph # (Auto) (1.32-3.57) K/mm3 [place] # (Auto) (0.30-0.82) K/mm3 Eos # (Auto) (0.04-0.54) K/mm3 Baso # (Auto) (0.01-0.08) K/mm3 Manual Slide Review Sodium (136-145) mEq/L Potassium 5.0 (3.5-5.1) mEq/L Chloride (98-107) mEq/L Carbon Dioxide (21-32) mEq/L Anion Gap (5-15) BUN (7-18) mg/dL Creatinine (0.7-1.3) mg/dL Est Cr Clr Drug Dosing mL/min Estimated GFR (MDRD) (>60) mL/min BUN/Creatinine Ratio (14-18) Glucose (70-99) mg/dL POC Glucose (70-99) mg/dL Calcium (8.5-10.1) mg/dL Magnesium 2.4 (1.8-2.4) mg/dL Total Bilirubin (0.2-1.0) mg/dL AST (15-37) U/L ALT (16-63) U/L Alkaline Phosphatase (46-116) U/L C-Reactive Protein (<1.0) mg/dL Total Protein (6.4-8.2) g/dl Albumin (3.4-5.0) g/dl Globulin gm/dL Albumin/Globulin Ratio (1-2) Med Orders - Current: Current Medications Acetaminophen (Acetaminophen 325 Mg Tab) 650 mg PO Q4H PRN PRN Reason: Fever Greater Than 101 Last Admin: 02/22/21 02:01 Dose: 650 mg Documented by: Albuterol/Ipratropium (Albuterol/Ipratropium 3.0-0.5 Mg/3 Ml Neb Soln) 3 ml NEB Q4HRRT PRN PRN Reason: Shortness of Breath Last Admin: 02/26/21 08:00 Dose: 3 ml Documented by: Ascorbic Acid (Ascorbic Acid 500 Mg Tab) 500 mg PO BID [facility] Last Admin: 02/26/21 08:11 Dose: 500 mg Documented by: Baricitinib (Baricitinib 2 Mg Tab) 4 mg PO DAILY [facility] Stop: 03/07/21 09:01 Last Admin: 02/26/21 08:13 Dose: 4 mg Documented by: Benzonatate (Benzonatate 100 Mg Cap) 100 mg PO Q8H PRN PRN Reason: Cough Last Admin: 02/25/21 20:51 Dose: 100 mg Documented by: Cholecalciferol (Cholecalciferol (Vitamin D3) 5,000 Unit Cap) 5,000 unit PO DAILY [facility] Last Admin: 02/26/21 08:13 Dose: 5,000 unit Documented by: Enoxaparin Sodium (Enoxaparin 100 Mg/1 Ml Syringe) 90 mg SUBCUT BID [facility] Last Admin: 02/26/21 08:11 Dose: 90 mg Documented by: Guaifenesin/Dextromethorphan (Guaifenesin/Dextromethorphan 100-10 Mg/5 Ml Soln 5 Ml Cup) 5 ml PO Q6H PRN PRN Reason: Cough Last Admin: 02/26/21 02:28 Dose: 5 ml Documented by: Insulin Human Lispro (Insulin Lispro 100 Unit/Ml 3 Ml Kwikpen) 0 unit SUBCUT QIDACANDBED [facility]; Protocol Last Admin: 02/26/21 08:20 Dose: 2 units Documented by: Methylprednisolone Sodium Succinate (Methylprednisolone Sodium Succinate 125 Mg/2 Ml Sdv) 60 mg IVPUSH Q6H [facility] Last Admin: 02/26/21 08:11 Dose: 60 mg Documented by: Rosuvastatin Calcium (Rosuvastatin 10 Mg Tab) 5 mg PO DAILY [facility] Last Admin: 02/26/21 08:12 Dose: 5 mg Documented by: Sodium Chloride (Sodium Chloride 0.9% 10 Ml Syringe) 10 ml FLUSH ASDIRECTED PRN PRN Reason: Keep Vein Open Last Admin: 02/20/21 09:40 Dose: 10 ml Documented by: Zinc Sulfate (Zinc Sulfate 220 Mg Cap) 220 mg PO DAILY [facility] Last Admin: 02/26/21 08:11 Dose: 220 mg Documented by: Discontinued Medications Albuterol/Ipratropium (Albuterol/Ipratropium 3.0-0.5 Mg/3 Ml Neb Soln) 3 ml NEB ONETIME ONE Stop: 02/20/21 09:57 Last Admin: 02/20/21 10:24 Dose: 3 ml Documented by: Dexamethasone (Dexamethasone 4 Mg/Ml Sdv) 6 mg IVPUSH ONETIME ONE Stop: 02/20/21 12:16 Last Admin: 02/20/21 15:34 Dose: Not Given Documented by: Enoxaparin Sodium (Enoxaparin 40 Mg/0.4 Ml Syringe) 40 mg SUBCUT DAILY [facility] Last Admin: 02/21/21 08:20 Dose: 40 mg Documented by: Sodium Chloride (Normal Saline) 1,000 mls @ 1,000 mls/hr IV .BOLUS [facility] Last Admin: 02/20/21 09:40 Dose: 1,000 mls/hr Documented by: Remdesivir 200 mg/ Sodium (Chloride) 250 mls @ 250 mls/hr IV ONETIME ONE Stop: 02/20/21 13:39 Last Admin: 02/20/21 12:47 Dose: 250 mls/hr Documented by: Remdesivir 100 mg/ Sodium (Chloride) 100 mls @ 100 mls/hr IV Q24H [facility] Stop: 02/24/21 13:59 Last Admin: 02/24/21 12:30 Dose: 100 mls/hr Documented by: Methylprednisolone Sodium Succinate (Methylprednisolone Sodium Succinate 125 Mg/2 Ml Sdv) 125 mg IVPUSH ONETIME ONE Stop: 02/20/21 12:26 Last Admin: 02/20/21 12:45 Dose: 125 mg Documented by: Methylprednisolone Sodium Succinate (Methylprednisolone Sodium Succinate 40 Mg/1 Ml Sdv) 40 mg IVPUSH Q6H [facility] Last Admin: 02/22/21 06:41 Dose: 40 mg Documented by: Methylprednisolone Sodium Succinate (Methylprednisolone Sodium Succinate 125 Mg/2 Ml Sdv) 40 mg IVPUSH Q6H [facility] Last Admin: 02/23/21 06:00 Dose: 40 mg Documented by: - Exam Quality Assessment: Supplemental Oxygen General: Alert, Oriented HEENT: Pupils Equal, Mucous Membr. Moist/[place] Neck: Supple Lungs: Crackles (Bibasilar). No: Normal Respiratory Effort (Increased rate and effort) Cardiovascular: Regular Rate, Regular Rhythm GI/Abdominal Exam: Normal Bowel Sounds, Soft, Non-Tender, No Organomegaly, No Distention, No Abnormal Bruit, No Mass Extremities: Normal Inspection, Normal Range of Motion, Non-Tender, No Pedal Edema, Normal Capillary Refill Skin: Warm, Dry, Intact Neurological: No New Focal Deficit - Patient Data Lab Results Last 24 hrs: Laboratory Results - last 24 hr 02/25/21 02/25/21 02/25/21 Range/Units 12:05 16:55 19:57 WBC (4.23-9.07) K/mm3 RBC (4.63-6.08) M/mm3 Hgb (13.7-17.5) gm/dl Hct (40.1-51.0) % MCV (79.0-92.2) fl MCH (25.7-32.2) pg MCHC (32.2-35.5) g/dl RDW Std Deviation (35.1-43.9) fL Plt Count (163-337) K/mm3 MPV (9.4-12.3) fl Neut % (Auto) (34.0-67.9) % Lymph % (Auto) (21.8-53.1) % [place] % (Auto) (5.3-12.2) % Eos % (Auto) (0.8-7.0) Baso % (Auto) (0.1-1.2) % Neut # (Auto) (1.78-5.38) K/mm3 Lymph # (Auto) (1.32-3.57) K/mm3 [place] # (Auto) (0.30-0.82) K/mm3 Eos # (Auto) (0.04-0.54) K/mm3 Baso # (Auto) (0.01-0.08) K/mm3 Manual Slide Review Sodium (136-145) mEq/L Potassium (3.5-5.1) mEq/L Chloride (98-107) mEq/L Carbon Dioxide (21-32) mEq/L Anion Gap (5-15) BUN (7-18) mg/dL Creatinine (0.7-1.3) mg/dL Est Cr Clr Drug Dosing mL/min Estimated GFR (MDRD) (>60) mL/min BUN/Creatinine Ratio (14-18) Glucose (70-99) mg/dL POC Glucose 256 H 168 H 195 H (70-99) mg/dL Calcium (8.5-10.1) mg/dL Magnesium (1.8-2.4) mg/dL Total Bilirubin (0.2-1.0) mg/dL AST (15-37) U/L ALT (16-63) U/L Alkaline Phosphatase (46-116) U/L C-Reactive Protein (<1.0) mg/dL Total Protein (6.4-8.2) g/dl Albumin (3.4-5.0) g/dl Globulin gm/dL Albumin/Globulin Ratio (1-2) 02/26/21 02/26/21 02/26/21 Range/Units 05:57 06:15 06:15 WBC 7.03 (4.23-9.07) K/mm3 RBC 4.20 L (4.63-6.08) M/mm3 Hgb 13.2 L (13.7-17.5) gm/dl Hct 38.9 L (40.1-51.0) % MCV 92.6 H (79.0-92.2) fl MCH 31.4 (25.7-32.2) pg MCHC 33.9 (32.2-35.5) g/dl RDW Std Deviation 38.8 (35.1-43.9) fL Plt Count 326 (163-337) K/mm3 MPV 9.3 L (9.4-12.3) fl Neut % (Auto) 95.1 H (34.0-67.9) % Lymph % (Auto) 2.1 L (21.8-53.1) % [place] % (Auto) 2.7 L (5.3-12.2) % Eos % (Auto) 0 L (0.8-7.0) Baso % (Auto) 0.0 L (0.1-1.2) % Neut # (Auto) 6.68 H (1.78-5.38) K/mm3 Lymph # (Auto) 0.15 L (1.32-3.57) K/mm3 [place] # (Auto) 0.19 L (0.30-0.82) K/mm3 Eos # (Auto) 0.00 L (0.04-0.54) K/mm3 Baso # (Auto) 0.00 L (0.01-0.08) K/mm3 Manual Slide Review Abnormal smear Sodium 137 (136-145) mEq/L Potassium 5.6 H (3.5-5.1) mEq/L Chloride 102 (98-107) mEq/L Carbon Dioxide 31 (21-32) mEq/L Anion Gap 9.6 (5-15) BUN 21 H (7-18) mg/dL Creatinine 0.8 (0.7-1.3) mg/dL Est Cr Clr Drug Dosing 89.60 mL/min Estimated GFR (MDRD) > 60 (>60) mL/min BUN/Creatinine Ratio 26.3 H (14-18) Glucose 171 H (70-99) mg/dL POC Glucose 180 H (70-99) mg/dL Calcium 7.7 L (8.5-10.1) mg/dL Magnesium (1.8-2.4) mg/dL Total Bilirubin 0.9 (0.2-1.0) mg/dL AST 26 (15-37) U/L ALT 127 H (16-63) U/L Alkaline Phosphatase 56 (46-116) U/L C-Reactive Protein 0.9 (<1.0) mg/dL Total Protein 5.1 L (6.4-8.2) g/dl Albumin 2.2 L (3.4-5.0) g/dl Globulin 2.9 gm/dL Albumin/Globulin Ratio 0.8 L (1-2) 02/26/ Range/Units 09:29 WBC (4.23-9.07) K/mm3 RBC (4.63-6.08) M/mm3 Hgb (13.7-17.5) gm/dl Hct (40.1-51.0) % MCV (79.0-92.2) fl MCH (25.7-32.2) pg MCHC (32.2-35.5) g/dl RDW Std Deviation (35.1-43.9) fL Plt Count (163-337) K/mm3 MPV (9.4-12.3) fl Neut % (Auto) (34.0-67.9) % Lymph % (Auto) (21.8-53.1) % [place] % (Auto) (5.3-12.2) % Eos % (Auto) (0.8-7.0) Baso % (Auto) (0.1-1.2) % Neut # (Auto) (1.78-5.38) K/mm3 Lymph # (Auto) (1.32-3.57) K/mm3 [place] # (Auto) (0.30-0.82) K/mm3 Eos # (Auto) (0.04-0.54) K/mm3 Baso # (Auto) (0.01-0.08) K/mm3 Manual Slide Review Sodium (136-145) mEq/L Potassium 5.0 (3.5-5.1) mEq/L Chloride (98-107) mEq/L Carbon Dioxide (21-32) mEq/L Anion Gap (5-15) BUN (7-18) mg/dL Creatinine (0.7-1.3) mg/dL Est Cr Clr Drug Dosing mL/min Estimated GFR (MDRD) (>60) mL/min BUN/Creatinine Ratio (14-18) Glucose (70-99) mg/dL POC Glucose (70-99) mg/dL Calcium (8.5-10.1) mg/dL Magnesium 2.4 (1.8-2.4) mg/dL Total Bilirubin (0.2-1.0) mg/dL AST (15-37) U/L ALT (16-63) U/L Alkaline Phosphatase (46-116) U/L C-Reactive Protein (<1.0) mg/dL Total Protein (6.4-8.2) g/dl Albumin (3.4-5.0) g/dl Globulin gm/dL Albumin/Globulin Ratio (1-2) Result Diagrams: 02/26/21 06:15 02/26/21 09:29 Sepsis Event Note - Evaluation Sepsis Screening Result: No Definite Risk - Focused Exam Vital Signs: Vital Signs Temp Pulse Resp BP Pulse Ox Pulse Ox 02/26/21 08:35 92 L 02/26/21 08:00 97.7 F 86 22 H 118/69 94 L 100 02/26/21 04:00 96.9 F 59 L 18 135/74 99 02/26/21 00:00 96.9 F 69 25 H 158/74 H 96 - Problem List & Annotations (1) Respiratory failure with hypoxia SNOMED Code(s): 07583217199184713 Code(s): J96.91 - RESPIRATORY FAILURE, UNSPECIFIED WITH HYPOXIA Status: Acute Current Visit: Yes (2) Hypoxia SNOMED Code(s): 744092445 Code(s): R09.02 - HYPOXEMIA Status: Acute Current Visit: Yes (3) Pneumonia due to COVID-19 virus SNOMED Code(s): 261622192532182063 Code(s): U07.1 - COVID-19; J12.82 - PNEUMONIA DUE TO CORONAVIRUS DISEASE 2019 Status: Acute Current Visit: Yes - Problem List Review Problem List Initiated/Reviewed/Updated: Yes - Plan Plan:: Patient is a 65-year-old male with a past medical history as listed below which does include asthma who presents to the emergency department with a chief complaint of low oxygen at home. Patient states that he began to lose his sense of taste and smell roughly a week to a week and a half ago before admission on 02/20. In the ER it was confirmed that he was COVID-19 positive. 1. Acute hypoxic respiratory failure in the setting of COVID-19. Covid 19 pneumonia Continue supplemental oxygen. Keep oxygen saturation greater than 87 % at all times Decrease Solu-Medrol to 40 mg every 6 hours. Completed remdesivir Continue Baricitinib 4mg daily Lovenox 90 mg twice daily Continue vitamin supplements with vitamin C and zinc. Encourage proning Incentive spirometry encouraged. Bronchodilators as necessary. CRP 0.9 today Procalcitonin 0.15 CBC, CMP and CRP daily 2. Hyperglycemia. hemoglobin A1c 6.3 Invoke hospital hyperglycemia protocol if found to be diabetic. All other medical comorbidities are stable and nonactive conditions, will continue home medications at regular dose. CODE STATUS: Full code. DVT prophylaxis with enoxaparin. Prognosis: guarded. Length of stay greater then 96 hours due to slow response to treatment.
[2021-02-26] MEDS: methylPREDNISolone Sodium Succinate 40 MG/1 ML SDV IVPUSH SCH ×2 (14:35→20:01)
[2021-02-27] MEDS: methylPREDNISolone Sodium Succinate 40 MG/1 ML SDV IVPUSH SCH ×4 (03:15→20:59)
[2021-02-27] MEDS: Albuterol/Ipratropium 3.0-0.5 MG/3 ML Neb Soln NEB PRN ×2 (06:19→15:21)
[2021-02-27] MEDS: Insulin Lispro 100 Unit/ML 3 ML KwikPen SUBCUT SCH ×4 (07:58→20:59)
[2021-02-27] MEDS: Rosuvastatin 10 MG Tab PO SCH (08:01)
[2021-02-27] MEDS: Enoxaparin 100 MG/1 ML Syringe SUBCUT SCH ×2 (08:01→20:46)
[2021-02-27] MEDS: Cholecalciferol (Vitamin D3) 5,000 UNIT Cap PO SCH (08:02)
[2021-02-27] MEDS: Ascorbic Acid 500 MG Tab PO SCH ×2 (08:02→20:47)
[2021-02-27] MEDS: Zinc Sulfate 220 MG Cap PO SCH (08:02)
[2021-02-27] MEDS: Benzonatate 100 MG Cap PO PRN ×2 (08:02→16:00)
--- NOTE | 2021-02-27 13:20 | PCM.PN ---
- General Info Date of Service: 02/27/21 Admission Dx/Problem (Free Text): Admission Diagnosis/Problem Admission Diagnosis/Problem Hypoxia Subjective Update: Frandy is not feeling quite as well as he was yesterday, but his oxygen requirement has significantly improved. He is currently on 50 L high flow nasal cannula at 75%. Functional Status: Reports: Pain Controlled - Review of Systems General: Reports: No Symptoms HEENT: Reports: No Symptoms Pulmonary: Reports: Shortness of Breath, Cough Cardiovascular: Reports: No Symptoms Gastrointestinal: Reports: No Symptoms Musculoskeletal: Reports: No Symptoms Psychiatric: Reports: No Symptoms - Patient Data Vitals - Most Recent: Last Vital Signs Temp 97.4 F 02/27/21 12:00 Pulse 82 02/27/21 12:00 Resp 28 H 02/27/21 12:00 BP 123/74 02/27/21 12:00 Pulse Ox 90 L 02/27/21 12:00 Weight - Most Recent: 198 lb 1.6 oz I&O - Last 24 Hours: Intake & Output 02/26/21 02/27/21 02/27/21 22:59 06:59 14:59 Intake Total 300 Output Total 1065 832 827 Balance -0436 -468 -563 Lab Results Last 24 Hours: Laboratory Results - last 24 hr 02/26/21 02/26/21 02/27/21 Range/Units 16:26 19:59 05:44 WBC 8.32 (4.23-9.07) K/mm3 RBC 4.20 L (4.63-6.08) M/mm3 Hgb 13.3 L (13.7-17.5) gm/dl Hct 38.8 L (40.1-51.0) % MCV 92.4 H (79.0-92.2) fl MCH 31.7 (25.7-32.2) pg MCHC 34.3 (32.2-35.5) g/dl RDW Std Deviation 38.8 (35.1-43.9) fL Plt Count 342 H (163-337) K/mm3 MPV 9.7 (9.4-12.3) fl Neut % (Auto) 94.7 H (34.0-67.9) % Lymph % (Auto) 2.0 L (21.8-53.1) % [place] % (Auto) 2.9 L (5.3-12.2) % Eos % (Auto) 0 L (0.8-7.0) Baso % (Auto) 0.0 L (0.1-1.2) % Neut # (Auto) 7.88 H (1.78-5.38) K/mm3 Lymph # (Auto) 0.17 L (1.32-3.57) K/mm3 [place] # (Auto) 0.24 L (0.30-0.82) K/mm3 Eos # (Auto) 0.00 L (0.04-0.54) K/mm3 Baso # (Auto) 0.00 L (0.01-0.08) K/mm3 Manual Slide Review Abnormal smear D-Dimer, Quantitative (0.19-0.50) mg/L Sodium (136-145) mEq/L Potassium (3.5-5.1) mEq/L Chloride (98-107) mEq/L Carbon Dioxide (21-32) mEq/L Anion Gap (5-15) BUN (7-18) mg/dL Creatinine (0.7-1.3) mg/dL Est Cr Clr Drug Dosing mL/min Estimated GFR (MDRD) (>60) mL/min BUN/Creatinine Ratio (14-18) Glucose (70-99) mg/dL POC Glucose 168 H 212 H (70-99) mg/dL Calcium (8.5-10.1) mg/dL Phosphorus (2.6-4.7) mg/dL Magnesium (1.8-2.4) mg/dL Total Bilirubin (0.2-1.0) mg/dL AST (15-37) U/L ALT (16-63) U/L Alkaline Phosphatase (46-116) U/L C-Reactive Protein (<1.0) mg/dL Total Protein (6.4-8.2) g/dl Albumin (3.4-5.0) g/dl Globulin gm/dL Albumin/Globulin Ratio (1-2) 02/27/21 02/27/21 02/27/21 Range/Units 05:44 05:44 05:44 WBC (4.23-9.07) K/mm3 RBC (4.63-6.08) M/mm3 Hgb (13.7-17.5) gm/dl Hct (40.1-51.0) % MCV (79.0-92.2) fl MCH (25.7-32.2) pg MCHC (32.2-35.5) g/dl RDW Std Deviation (35.1-43.9) fL Plt Count (163-337) K/mm3 MPV (9.4-12.3) fl Neut % (Auto) (34.0-67.9) % Lymph % (Auto) (21.8-53.1) % [place] % (Auto) (5.3-12.2) % Eos % (Auto) (0.8-7.0) Baso % (Auto) (0.1-1.2) % Neut # (Auto) (1.78-5.38) K/mm3 Lymph # (Auto) (1.32-3.57) K/mm3 [place] # (Auto) (0.30-0.82) K/mm3 Eos # (Auto) (0.04-0.54) K/mm3 Baso # (Auto) (0.01-0.08) K/mm3 Manual Slide Review D-Dimer, Quantitative 0.99 H (0.19-0.50) mg/L Sodium 137 (136-145) mEq/L Potassium 5.4 H (3.5-5.1) mEq/L Chloride 102 (98-107) mEq/L Carbon Dioxide 30 (21-32) mEq/L Anion Gap 10.4 (5-15) BUN 24 H (7-18) mg/dL Creatinine 0.7 (0.7-1.3) mg/dL Est Cr Clr Drug Dosing 102.40 mL/min Estimated GFR (MDRD) > 60 (>60) mL/min BUN/Creatinine Ratio 34.3 H (14-18) Glucose 148 H (70-99) mg/dL POC Glucose (70-99) mg/dL Calcium 7.7 L (8.5-10.1) mg/dL Phosphorus 3.4 (2.6-4.7) mg/dL Magnesium 2.3 (1.8-2.4) mg/dL Total Bilirubin 1.0 (0.2-1.0) mg/dL AST 21 (15-37) U/L ALT 112 H (16-63) U/L Alkaline Phosphatase 51 (46-116) U/L C-Reactive Protein 0.4 (<1.0) mg/dL Total Protein 5.1 L (6.4-8.2) g/dl Albumin 2.2 L (3.4-5.0) g/dl Globulin 2.9 gm/dL Albumin/Globulin Ratio 0.8 L (1-2) 02/27/21 02/27/21 Range/Units 06:16 11:59 WBC (4.23-9.07) K/mm3 RBC (4.63-6.08) M/mm3 Hgb (13.7-17.5) gm/dl Hct (40.1-51.0) % MCV (79.0-92.2) fl MCH (25.7-32.2) pg MCHC (32.2-35.5) g/dl RDW Std Deviation (35.1-43.9) fL Plt Count (163-337) K/mm3 MPV (9.4-12.3) fl Neut % (Auto) (34.0-67.9) % Lymph % (Auto) (21.8-53.1) % [place] % (Auto) (5.3-12.2) % Eos % (Auto) (0.8-7.0) Baso % (Auto) (0.1-1.2) % Neut # (Auto) (1.78-5.38) K/mm3 Lymph # (Auto) (1.32-3.57) K/mm3 [place] # (Auto) (0.30-0.82) K/mm3 Eos # (Auto) (0.04-0.54) K/mm3 Baso # (Auto) (0.01-0.08) K/mm3 Manual Slide Review D-Dimer, Quantitative (0.19-0.50) mg/L Sodium (136-145) mEq/L Potassium (3.5-5.1) mEq/L Chloride (98-107) mEq/L Carbon Dioxide (21-32) mEq/L Anion Gap (5-15) BUN (7-18) mg/dL Creatinine (0.7-1.3) mg/dL Est Cr Clr Drug Dosing mL/min Estimated GFR (MDRD) (>60) mL/min BUN/Creatinine Ratio (14-18) Glucose (70-99) mg/dL POC Glucose 150 H 205 H (70-99) mg/dL Calcium (8.5-10.1) mg/dL Phosphorus (2.6-4.7) mg/dL Magnesium (1.8-2.4) mg/dL Total Bilirubin (0.2-1.0) mg/dL AST (15-37) U/L ALT (16-63) U/L Alkaline Phosphatase (46-116) U/L C-Reactive Protein (<1.0) mg/dL Total Protein (6.4-8.2) g/dl Albumin (3.4-5.0) g/dl Globulin gm/dL Albumin/Globulin Ratio (1-2) Med Orders - Current: Current Medications Acetaminophen (Acetaminophen 325 Mg Tab) 650 mg PO Q4H PRN PRN Reason: Fever Greater Than 101 Last Admin: 02/22/21 02:01 Dose: 650 mg Documented by: Albuterol/Ipratropium (Albuterol/Ipratropium 3.0-0.5 Mg/3 Ml Neb Soln) 3 ml NEB Q4HRRT PRN PRN Reason: Shortness of Breath Last Admin: 02/27/21 06:19 Dose: 3 ml Documented by: Ascorbic Acid (Ascorbic Acid 500 Mg Tab) [address] [facility] Last Admin: 02/27/21 08:02 Dose: 500 mg Documented by: Baricitinib (Baricitinib 2 Mg Tab) [address] [facility] Stop: 03/07/21 09:01 Last Admin: 02/27/21 08:02 Dose: 4 mg Documented by: Benzonatate (Benzonatate 100 Mg Cap) 100 mg PO Q8H PRN PRN Reason: Cough Last Admin: 02/27/21 08:02 Dose: 100 mg Documented by: Cholecalciferol (Cholecalciferol (Vitamin D3) 5,000 Unit Cap) 5,[address] [facility] Last Admin: 02/27/21 08:02 Dose: 5,000 unit Documented by: Enoxaparin Sodium (Enoxaparin 100 Mg/1 Ml Syringe) [address] [facility] Last Admin: 02/27/21 08:01 Dose: 90 mg Documented by: Guaifenesin/Dextromethorphan (Guaifenesin/Dextromethorphan 100-10 Mg/5 Ml Soln 5 Ml Cup) 5 ml PO Q6H PRN PRN Reason: Cough Last Admin: 02/26/21 19:56 Dose: 5 ml Documented by: Insulin Human Lispro (Insulin Lispro 100 Unit/Ml 3 Ml Kwikpen) [address] [facility]; Protocol Last Admin: 02/27/21 07:58 Dose: 2 units Documented by: Methylprednisolone Sodium Succinate (Methylprednisolone Sodium Succinate 40 Mg/1 Ml Sdv) [address] [facility] Rosuvastatin Calcium (Rosuvastatin 10 Mg Tab) [address] [facility] Last Admin: 02/27/21 08:01 Dose: 5 mg Documented by: Sodium Chloride (Sodium Chloride 0.9% 10 Ml Syringe) 10 ml FLUSH ASDIRECTED PRN PRN Reason: Keep Vein Open Last Admin: 02/20/21 09:40 Dose: 10 ml Documented by: Zinc Sulfate (Zinc Sulfate 220 Mg Cap) [address] [facility] Last Admin: 02/27/21 08:02 Dose: 220 mg Documented by: Discontinued Medications Albuterol/Ipratropium (Albuterol/Ipratropium 3.0-0.5 Mg/3 Ml Neb Soln) 3 ml NEB ONETIME ONE Stop: 02/20/21 09:57 Last Admin: 02/20/21 10:24 Dose: 3 ml Documented by: Dexamethasone (Dexamethasone 4 Mg/Ml Sdv) 6 mg IVPUSH ONETIME ONE Stop: 02/20/21 12:16 Last Admin: 02/20/21 15:34 Dose: Not Given Documented by: Enoxaparin Sodium (Enoxaparin 40 Mg/0.4 Ml Syringe) [address] [facility] Last Admin: 02/21/21 08:20 Dose: 40 mg Documented by: Sodium Chloride (Normal Saline) 1,000 mls @ 1,000 mls/hr IV .BOLUS [facility] Last Admin: 02/20/21 09:40 Dose: 1,000 mls/hr Documented by: Remdesivir 200 mg/ Sodium (Chloride) 250 mls @ 250 mls/hr IV ONETIME ONE Stop: 02/20/21 13:39 Last Admin: 02/20/21 12:47 Dose: 250 mls/hr Documented by: Remdesivir 100 mg/ Sodium (Chloride) 100 mls @ 100 mls/hr IV Q24H [facility] Stop: 02/24/21 13:59 Last Admin: 02/24/21 12:30 Dose: 100 mls/hr Documented by: Methylprednisolone Sodium Succinate (Methylprednisolone Sodium Succinate 125 Mg/2 Ml Sdv) 125 mg IVPUSH ONETIME ONE Stop: 02/20/21 12:26 Last Admin: 02/20/21 12:45 Dose: 125 mg Documented by: Methylprednisolone Sodium Succinate (Methylprednisolone Sodium Succinate 40 Mg/1 Ml Sdv) [address] [facility] Last Admin: 02/22/21 06:41 Dose: 40 mg Documented by: Methylprednisolone Sodium Succinate (Methylprednisolone Sodium Succinate 125 Mg/2 Ml Sdv) [address] [facility] Last Admin: 02/23/21 06:00 Dose: 40 mg Documented by: Methylprednisolone Sodium Succinate (Methylprednisolone Sodium Succinate 125 Mg/2 Ml Sdv) [address] [facility] Last Admin: 02/26/21 08:11 Dose: 60 mg Documented by: Methylprednisolone Sodium Succinate (Methylprednisolone Sodium Succinate 40 Mg/1 Ml Sdv) [address] [facility] Last Admin: 02/27/21 08:03 Dose: 40 mg Documented by: - Exam Quality Assessment: Supplemental Oxygen General: Alert, Oriented HEENT: Pupils Equal, Mucous Membr. Moist/[place] Neck: Supple Lungs: Crackles (Bibasilar). No: Normal Respiratory Effort Cardiovascular: Regular Rate, Regular Rhythm GI/Abdominal Exam: Normal Bowel Sounds, Soft, Non-Tender, No Distention Extremities: Normal Inspection, Non-Tender, Normal Capillary Refill Skin: Warm, Dry, Intact Neurological: No New Focal Deficit Psy/Mental Status: Alert, Normal Affect, Normal Mood - Patient Data Lab Results Last 24 hrs: Laboratory Results - last 24 hr 02/26/21 02/26/21 02/27/21 Range/Units 16:26 19:59 05:44 WBC 8.32 (4.23-9.07) K/mm3 RBC 4.20 L (4.63-6.08) M/mm3 Hgb 13.3 L (13.7-17.5) gm/dl Hct 38.8 L (40.1-51.0) % MCV 92.4 H (79.0-92.2) fl MCH 31.7 (25.7-32.2) pg MCHC 34.3 (32.2-35.5) g/dl RDW Std Deviation 38.8 (35.1-43.9) fL Plt Count 342 H (163-337) K/mm3 MPV 9.7 (9.4-12.3) fl Neut % (Auto) 94.7 H (34.0-67.9) % Lymph % (Auto) 2.0 L (21.8-53.1) % [place] % (Auto) 2.9 L (5.3-12.2) % Eos % (Auto) 0 L (0.8-7.0) Baso % (Auto) 0.0 L (0.1-1.2) % Neut # (Auto) 7.88 H (1.78-5.38) K/mm3 Lymph # (Auto) 0.17 L (1.32-3.57) K/mm3 [place] # (Auto) 0.24 L (0.30-0.82) K/mm3 Eos # (Auto) 0.00 L (0.04-0.54) K/mm3 Baso # (Auto) 0.00 L (0.01-0.08) K/mm3 Manual Slide Review Abnormal smear D-Dimer, Quantitative (0.19-0.50) mg/L Sodium (136-145) mEq/L Potassium (3.5-5.1) mEq/L Chloride (98-107) mEq/L Carbon Dioxide (21-32) mEq/L Anion Gap (5-15) BUN (7-18) mg/dL Creatinine (0.7-1.3) mg/dL Est Cr Clr Drug Dosing mL/min Estimated GFR (MDRD) (>60) mL/min BUN/Creatinine Ratio (14-18) Glucose (70-99) mg/dL POC Glucose 168 H 212 H (70-99) mg/dL Calcium (8.5-10.1) mg/dL Phosphorus (2.6-4.7) mg/dL Magnesium (1.8-2.4) mg/dL Total Bilirubin (0.2-1.0) mg/dL AST (15-37) U/L ALT (16-63) U/L Alkaline Phosphatase (46-116) U/L C-Reactive Protein (<1.0) mg/dL Total Protein (6.4-8.2) g/dl Albumin (3.4-5.0) g/dl Globulin gm/dL Albumin/Globulin Ratio (1-2) 02/27/21 02/27/21 02/27/21 Range/Units 05:44 05:44 05:44 WBC (4.23-9.07) K/mm3 RBC (4.63-6.08) M/mm3 Hgb (13.7-17.5) gm/dl Hct (40.1-51.0) % MCV (79.0-92.2) fl MCH (25.7-32.2) pg MCHC (32.2-35.5) g/dl RDW Std Deviation (35.1-43.9) fL Plt Count (163-337) K/mm3 MPV (9.4-12.3) fl Neut % (Auto) (34.0-67.9) % Lymph % (Auto) (21.8-53.1) % [place] % (Auto) (5.3-12.2) % Eos % (Auto) (0.8-7.0) Baso % (Auto) (0.1-1.2) % Neut # (Auto) (1.78-5.38) K/mm3 Lymph # (Auto) (1.32-3.57) K/mm3 [place] # (Auto) (0.30-0.82) K/mm3 Eos # (Auto) (0.04-0.54) K/mm3 Baso # (Auto) (0.01-0.08) K/mm3 Manual Slide Review D-Dimer, Quantitative 0.99 H (0.19-0.50) mg/L Sodium 137 (136-145) mEq/L Potassium 5.4 H (3.5-5.1) mEq/L Chloride 102 (98-107) mEq/L Carbon Dioxide 30 (21-32) mEq/L Anion Gap 10.4 (5-15) BUN 24 H (7-18) mg/dL Creatinine 0.7 (0.7-1.3) mg/dL Est Cr Clr Drug Dosing 102.40 mL/min Estimated GFR (MDRD) > 60 (>60) mL/min BUN/Creatinine Ratio 34.3 H (14-18) Glucose 148 H (70-99) mg/dL POC Glucose (70-99) mg/dL Calcium 7.7 L (8.5-10.1) mg/dL Phosphorus 3.4 (2.6-4.7) mg/dL Magnesium 2.3 (1.8-2.4) mg/dL Total Bilirubin 1.0 (0.2-1.0) mg/dL AST 21 (15-37) U/L ALT 112 H (16-63) U/L Alkaline Phosphatase 51 (46-116) U/L C-Reactive Protein 0.4 (<1.0) mg/dL Total Protein 5.1 L (6.4-8.2) g/dl Albumin 2.2 L (3.4-5.0) g/dl Globulin 2.9 gm/dL Albumin/Globulin Ratio 0.8 L (1-2) 02/27/21 02/27/21 Range/Units 06:16 11:59 WBC (4.23-9.07) K/mm3 RBC (4.63-6.08) M/mm3 Hgb (13.7-17.5) gm/dl Hct (40.1-51.0) % MCV (79.0-92.2) fl MCH (25.7-32.2) pg MCHC (32.2-35.5) g/dl RDW Std Deviation (35.1-43.9) fL Plt Count (163-337) K/mm3 MPV (9.4-12.3) fl Neut % (Auto) (34.0-67.9) % Lymph % (Auto) (21.8-53.1) % [place] % (Auto) (5.3-12.2) % Eos % (Auto) (0.8-7.0) Baso % (Auto) (0.1-1.2) % Neut # (Auto) (1.78-5.38) K/mm3 Lymph # (Auto) (1.32-3.57) K/mm3 [place] # (Auto) (0.30-0.82) K/mm3 Eos # (Auto) (0.04-0.54) K/mm3 Baso # (Auto) (0.01-0.08) K/mm3 Manual Slide Review D-Dimer, Quantitative (0.19-0.50) mg/L Sodium (136-145) mEq/L Potassium (3.5-5.1) mEq/L Chloride (98-107) mEq/L Carbon Dioxide (21-32) mEq/L Anion Gap (5-15) BUN (7-18) mg/dL Creatinine (0.7-1.3) mg/dL Est Cr Clr Drug Dosing mL/min Estimated GFR (MDRD) (>60) mL/min BUN/Creatinine Ratio (14-18) Glucose (70-99) mg/dL POC Glucose 150 H 205 H (70-99) mg/dL Calcium (8.5-10.1) mg/dL Phosphorus (2.6-4.7) mg/dL Magnesium (1.8-2.4) mg/dL Total Bilirubin (0.2-1.0) mg/dL AST (15-37) U/L ALT (16-63) U/L Alkaline Phosphatase (46-116) U/L C-Reactive Protein (<1.0) mg/dL Total Protein (6.4-8.2) g/dl Albumin (3.4-5.0) g/dl Globulin gm/dL Albumin/Globulin Ratio (1-2) Result Diagrams: 02/27/21 05:44 02/27/21 05:44 Sepsis Event Note - Evaluation Sepsis Screening Result: No Definite Risk - Focused Exam Vital Signs: Vital Signs Temp Pulse Resp BP BP Pulse Ox Pulse Ox 02/27/21 12:00 97.4 F 82 28 H 123/74 90 L 02/27/21 11:40 93 L 02/27/21 08:00 97.1 F 112 H 28 H 128/80 87 L 02/27/21 06:19 90 L 02/27/21 04:00 96.9 F 67 28 H 129/56 L 95 02/27/21 02:11 97 - Problem List & Annotations (1) Respiratory failure with hypoxia SNOMED Code(s): 06222062119522989 Code(s): J96.91 - RESPIRATORY FAILURE, UNSPECIFIED WITH HYPOXIA Status: Acute Current Visit: Yes (2) Hypoxia SNOMED Code(s): 565105540 Code(s): R09.02 - HYPOXEMIA Status: Acute Current Visit: Yes (3) Pneumonia due to COVID-19 virus SNOMED Code(s): 112184938416594251 Code(s): U07.1 - COVID-19; J12.82 - PNEUMONIA DUE TO CORONAVIRUS DISEASE 2019 Status: Acute Current Visit: Yes - Problem List Review Problem List Initiated/Reviewed/Updated: Yes - My Orders Last 24 Hours: My Active Orders 02/27/21 14:00 methylPREDNISolone Sod Succ [Solu-MEDROL] 40 mg IVPUSH Q8H - Plan Plan:: Patient is a 65-year-old male with a past medical history as listed below which does include asthma who presents to the emergency department with a chief complaint of low oxygen at home. Patient states that he began to lose his sense of taste and smell roughly a week to a week and a half ago before admission on 02/20. In the ER it was confirmed that he was COVID-19 positive. 1. Acute hypoxic respiratory failure in the setting of COVID-19. Covid 19 pneumonia Continue supplemental oxygen. Keep oxygen saturation greater than 87 % at all times Decrease Solu-Medrol to 40 mg every 8 hours. Completed remdesivir Continue Baricitinib 4mg daily Lovenox 90 mg twice daily Continue vitamin supplements with vitamin C and zinc. Encourage proning Incentive spirometry encouraged. Bronchodilators as necessary. CRP 0.4 today Procalcitonin 0.15 CBC, CMP and CRP daily 2. Hyperglycemia. hemoglobin A1c 6.3 Invoke hospital hyperglycemia protocol if found to be diabetic. All other medical comorbidities are stable and nonactive conditions, will continue home medications at regular dose. CODE STATUS: Full code. DVT prophylaxis with enoxaparin. Prognosis: guarded. Length of stay greater then 96 hours due to slow response to treatment.
[2021-02-28] MEDS: Albuterol/Ipratropium 3.0-0.5 MG/3 ML Neb Soln NEB PRN ×3 (00:09→16:03)
[2021-02-28] MEDS: methylPREDNISolone Sodium Succinate 40 MG/1 ML SDV IVPUSH SCH ×3 (06:14→21:23)
[2021-02-28] MEDS: Insulin Lispro 100 Unit/ML 3 ML KwikPen SUBCUT SCH ×4 (08:32→21:23)
[2021-02-28] MEDS: Enoxaparin 100 MG/1 ML Syringe SUBCUT SCH ×2 (08:51→20:20)
[2021-02-28] MEDS: Rosuvastatin 10 MG Tab PO SCH (08:53)
[2021-02-28] MEDS: Ascorbic Acid 500 MG Tab PO SCH ×2 (08:53→20:20)
[2021-02-28] MEDS: Benzonatate 100 MG Cap PO PRN ×2 (08:53→20:21)
[2021-02-28] MEDS: Zinc Sulfate 220 MG Cap PO SCH (08:53)
[2021-02-28] MEDS: Cholecalciferol (Vitamin D3) 5,000 UNIT Cap PO SCH (08:53)
--- NOTE | 2021-02-28 14:26 | PCM.PN ---
- General Info Date of Service: 02/28/21 Admission Dx/Problem (Free Text): Admission Diagnosis/Problem Admission Diagnosis/Problem Hypoxia Subjective Update: Patient has required higher oxygen and story support today. He unfortunately had a desaturation into the 70s which required increasing his high flow nasal cannula back up to 60 L and at 1.100% FiO2. This is being titrated down. He does state he is feeling well without any significant change from yesterday. Functional Status: Reports: Pain Controlled - Review of Systems General: Reports: No Symptoms HEENT: Reports: No Symptoms Pulmonary: Reports: Shortness of Breath, Cough Cardiovascular: Reports: No Symptoms Gastrointestinal: Reports: No Symptoms Musculoskeletal: Reports: No Symptoms Neurological: Reports: No Symptoms - Patient Data Vitals - Most Recent: Last Vital Signs Temp 96.5 F L 02/28/21 12:00 Pulse 83 02/28/21 12:00 Resp 26 H 02/27/21 16:00 BP 104/71 02/28/21 12:00 Pulse Ox 90 L 02/28/21 14:00 Weight - Most Recent: 198 lb 12.8 oz I&O - Last 24 Hours: Intake & Output 02/27/21 02/28/21 02/28/21 22:59 06:59 14:59 Intake Total 1200 800 Output Total 600 1550 800 Balance 600 -750 -800 Lab Results Last 24 Hours: Laboratory Results - last 24 hr 02/27/21 02/27/21 02/28/21 Range/Units 17:12 20:45 05:10 WBC 7.90 (4.23-9.07) K/mm3 RBC 4.15 L (4.63-6.08) M/mm3 Hgb 13.2 L (13.7-17.5) gm/dl Hct 38.2 L (40.1-51.0) % MCV 92.0 (79.0-92.2) fl MCH 31.8 (25.7-32.2) pg MCHC 34.6 (32.2-35.5) g/dl RDW Std Deviation 38.8 (35.1-43.9) fL Plt Count 341 H (163-337) K/mm3 MPV 9.7 (9.4-12.3) fl Neut % (Auto) 93.7 H (34.0-67.9) % Lymph % (Auto) 3.2 L (21.8-53.1) % Holt % (Auto) 3.0 L (5.3-12.2) % Eos % (Auto) 0 L (0.8-7.0) Baso % (Auto) 0.0 L (0.1-1.2) % Neut # (Auto) 7.40 H (1.78-5.38) K/mm3 Lymph # (Auto) 0.25 L (1.32-3.57) K/mm3 Holt # (Auto) 0.24 L (0.30-0.82) K/mm3 Eos # (Auto) 0.00 L (0.04-0.54) K/mm3 Baso # (Auto) 0.00 L (0.01-0.08) K/mm3 Manual Slide Review Abnormal smear D-Dimer, Quantitative (0.19-0.50) mg/L Sodium (136-145) mEq/L Potassium (3.5-5.1) mEq/L Chloride (98-107) mEq/L Carbon Dioxide (21-32) mEq/L Anion Gap (5-15) BUN (7-18) mg/dL Creatinine (0.7-1.3) mg/dL Est Cr Clr Drug Dosing mL/min Estimated GFR (MDRD) (>60) mL/min BUN/Creatinine Ratio (14-18) Glucose (70-99) mg/dL POC Glucose 287 H 214 H (70-99) mg/dL Calcium (8.5-10.1) mg/dL Phosphorus (2.6-4.7) mg/dL Magnesium (1.8-2.4) mg/dL Total Bilirubin (0.2-1.0) mg/dL AST (15-37) U/L ALT (16-63) U/L Alkaline Phosphatase (46-116) U/L C-Reactive Protein (<1.0) mg/dL Total Protein (6.4-8.2) g/dl Albumin (3.4-5.0) g/dl Globulin gm/dL Albumin/Globulin Ratio (1-2) 02/28/21 02/28/21 02/28/21 Range/Units 05:10 05:10 06:15 WBC (4.23-9.07) K/mm3 RBC (4.63-6.08) M/mm3 Hgb (13.7-17.5) gm/dl Hct (40.1-51.0) % MCV (79.0-92.2) fl MCH (25.7-32.2) pg MCHC (32.2-35.5) g/dl RDW Std Deviation (35.1-43.9) fL Plt Count (163-337) K/mm3 MPV (9.4-12.3) fl Neut % (Auto) (34.0-67.9) % Lymph % (Auto) (21.8-53.1) % Holt % (Auto) (5.3-12.2) % Eos % (Auto) (0.8-7.0) Baso % (Auto) (0.1-1.2) % Neut # (Auto) (1.78-5.38) K/mm3 Lymph # (Auto) (1.32-3.57) K/mm3 Holt # (Auto) (0.30-0.82) K/mm3 Eos # (Auto) (0.04-0.54) K/mm3 Baso # (Auto) (0.01-0.08) K/mm3 Manual Slide Review D-Dimer, Quantitative 0.93 H (0.19-0.50) mg/L Sodium 134 L (136-145) mEq/L Potassium 5.6 H (3.5-5.1) mEq/L Chloride 101 (98-107) mEq/L Carbon Dioxide 29 (21-32) mEq/L Anion Gap 9.6 (5-15) BUN 23 H (7-18) mg/dL Creatinine 0.7 (0.7-1.3) mg/dL Est Cr Clr Drug Dosing 102.40 mL/min Estimated GFR (MDRD) > 60 (>60) mL/min BUN/Creatinine Ratio 32.9 H (14-18) Glucose 152 H (70-99) mg/dL POC Glucose 138 H (70-99) mg/dL Calcium 7.8 L (8.5-10.1) mg/dL Phosphorus 3.7 (2.6-4.7) mg/dL Magnesium 2.1 (1.8-2.4) mg/dL Total Bilirubin 0.9 (0.2-1.0) mg/dL AST 14 L (15-37) U/L ALT 92 H (16-63) U/L Alkaline Phosphatase 48 (46-116) U/L C-Reactive Protein < 0.2 (<1.0) mg/dL Total Protein 4.9 L (6.4-8.2) g/dl Albumin 2.2 L (3.4-5.0) g/dl Globulin 2.7 gm/dL Albumin/Globulin Ratio 0.8 L (1-2) 02/28/21 Range/Units 11:38 WBC (4.23-9.07) K/mm3 RBC (4.63-6.08) M/mm3 Hgb (13.7-17.5) gm/dl Hct (40.1-51.0) % MCV (79.0-92.2) fl MCH (25.7-32.2) pg MCHC (32.2-35.5) g/dl RDW Std Deviation (35.1-43.9) fL Plt Count (163-337) K/mm3 MPV (9.4-12.3) fl Neut % (Auto) (34.0-67.9) % Lymph % (Auto) (21.8-53.1) % Holt % (Auto) (5.3-12.2) % Eos % (Auto) (0.8-7.0) Baso % (Auto) (0.1-1.2) % Neut # (Auto) (1.78-5.38) K/mm3 Lymph # (Auto) (1.32-3.57) K/mm3 Holt # (Auto) (0.30-0.82) K/mm3 Eos # (Auto) (0.04-0.54) K/mm3 Baso # (Auto) (0.01-0.08) K/mm3 Manual Slide Review D-Dimer, Quantitative (0.19-0.50) mg/L Sodium (136-145) mEq/L Potassium (3.5-5.1) mEq/L Chloride (98-107) mEq/L Carbon Dioxide (21-32) mEq/L Anion Gap (5-15) BUN (7-18) mg/dL Creatinine (0.7-1.3) mg/dL Est Cr Clr Drug Dosing mL/min Estimated GFR (MDRD) (>60) mL/min BUN/Creatinine Ratio (14-18) Glucose (70-99) mg/dL POC Glucose 173 H (70-99) mg/dL Calcium (8.5-10.1) mg/dL Phosphorus (2.6-4.7) mg/dL Magnesium (1.8-2.4) mg/dL Total Bilirubin (0.2-1.0) mg/dL AST (15-37) U/L ALT (16-63) U/L Alkaline Phosphatase (46-116) U/L C-Reactive Protein (<1.0) mg/dL Total Protein (6.4-8.2) g/dl Albumin (3.4-5.0) g/dl Globulin gm/dL Albumin/Globulin Ratio (1-2) Med Orders - Current: Current Medications Acetaminophen (Acetaminophen 325 Mg Tab) 650 mg PO Q4H PRN PRN Reason: Fever Greater Than 101 Last Admin: 02/22/21 02:01 Dose: 650 mg Documented by: Albuterol/Ipratropium (Albuterol/Ipratropium 3.0-0.5 Mg/3 Ml Neb Soln) 3 ml NEB Q4HRRT PRN PRN Reason: Shortness of Breath Last Admin: 02/28/21 07:51 Dose: 3 ml Documented by: Ascorbic Acid (Ascorbic Acid 500 Mg Tab) 500 mg PO BID [facility] Last Admin: 02/28/21 08:53 Dose: 500 mg Documented by: Baricitinib (Baricitinib 2 Mg Tab) 4 mg PO DAILY [facility] Stop: 03/07/21 09:01 Last Admin: 02/28/21 08:53 Dose: 4 mg Documented by: Benzonatate (Benzonatate 100 Mg Cap) 100 mg PO Q8H PRN PRN Reason: Cough Last Admin: 02/28/21 08:53 Dose: 100 mg Documented by: Cholecalciferol (Cholecalciferol (Vitamin D3) 5,000 Unit Cap) 5,000 unit PO DAILY [facility] Last Admin: 02/28/21 08:53 Dose: 5,000 unit Documented by: Enoxaparin Sodium (Enoxaparin 100 Mg/1 Ml Syringe) 90 mg SUBCUT BID [facility] Last Admin: 02/28/21 08:51 Dose: 90 mg Documented by: Guaifenesin/Dextromethorphan (Guaifenesin/Dextromethorphan 100-10 Mg/5 Ml Soln 5 Ml Cup) 5 ml PO Q6H PRN PRN Reason: Cough Last Admin: 02/26/21 19:56 Dose: 5 ml Documented by: Insulin Human Lispro (Insulin Lispro 100 Unit/Ml 3 Ml Kwikpen) 0 unit SUBCUT QIDACANDBED [facility]; Protocol Last Admin: 02/28/21 13:35 Dose: 2 units Documented by: Methylprednisolone Sodium Succinate (Methylprednisolone Sodium Succinate 40 Mg/1 Ml Sdv) 40 mg IVPUSH Q8H [facility] Last Admin: 02/28/21 14:13 Dose: 40 mg Documented by: Rosuvastatin Calcium (Rosuvastatin 10 Mg Tab) 5 mg PO DAILY [facility] Last Admin: 02/28/21 08:53 Dose: 5 mg Documented by: Sodium Chloride (Sodium Chloride 0.9% 10 Ml Syringe) 10 ml FLUSH ASDIRECTED PRN PRN Reason: Keep Vein Open Last Admin: 02/20/21 09:40 Dose: 10 ml Documented by: Zinc Sulfate (Zinc Sulfate 220 Mg Cap) 220 mg PO DAILY [facility] Last Admin: 02/28/21 08:53 Dose: 220 mg Documented by: Discontinued Medications Albuterol/Ipratropium (Albuterol/Ipratropium 3.0-0.5 Mg/3 Ml Neb Soln) 3 ml NEB ONETIME ONE Stop: 02/20/21 09:57 Last Admin: 02/20/21 10:24 Dose: 3 ml Documented by: Dexamethasone (Dexamethasone 4 Mg/Ml Sdv) 6 mg IVPUSH ONETIME ONE Stop: 02/20/21 12:16 Last Admin: 02/20/21 15:34 Dose: Not Given Documented by: Enoxaparin Sodium (Enoxaparin 40 Mg/0.4 Ml Syringe) 40 mg SUBCUT DAILY [facility] Last Admin: 02/21/21 08:20 Dose: 40 mg Documented by: Sodium Chloride (Normal Saline) 1,000 mls @ 1,000 mls/hr IV .BOLUS [facility] Last Admin: 02/20/21 09:40 Dose: 1,000 mls/hr Documented by: Remdesivir 200 mg/ Sodium (Chloride) 250 mls @ 250 mls/hr IV ONETIME ONE Stop: 02/20/21 13:39 Last Admin: 02/20/21 12:47 Dose: 250 mls/hr Documented by: Remdesivir 100 mg/ Sodium (Chloride) 100 mls @ 100 mls/hr IV Q24H [facility] Stop: 02/24/21 13:59 Last Admin: 02/24/21 12:30 Dose: 100 mls/hr Documented by: Methylprednisolone Sodium Succinate (Methylprednisolone Sodium Succinate 125 Mg/2 Ml Sdv) 125 mg IVPUSH ONETIME ONE Stop: 02/20/21 12:26 Last Admin: 02/20/21 12:45 Dose: 125 mg Documented by: Methylprednisolone Sodium Succinate (Methylprednisolone Sodium Succinate 40 Mg/1 Ml Sdv) 40 mg IVPUSH Q6H [facility] Last Admin: 02/22/21 06:41 Dose: 40 mg Documented by: Methylprednisolone Sodium Succinate (Methylprednisolone Sodium Succinate 125 Mg/2 Ml Sdv) 40 mg IVPUSH Q6H [facility] Last Admin: 02/23/21 06:00 Dose: 40 mg Documented by: Methylprednisolone Sodium Succinate (Methylprednisolone Sodium Succinate 125 Mg/2 Ml Sdv) 60 mg IVPUSH Q6H [facility] Last Admin: 02/26/21 08:11 Dose: 60 mg Documented by: Methylprednisolone Sodium Succinate (Methylprednisolone Sodium Succinate 40 Mg/1 Ml Sdv) 40 mg IVPUSH Q6H [facility] Last Admin: 02/27/21 08:03 Dose: 40 mg Documented by: - Exam Quality Assessment: Supplemental Oxygen General: Alert, Oriented HEENT: Pupils Equal, Mucous Membr. Moist/[place] Neck: Supple Lungs: Crackles (Bibasilar). No: Normal Respiratory Effort (Increased rate and effort) Cardiovascular: Regular Rate, Regular Rhythm GI/Abdominal Exam: Normal Bowel Sounds, Soft, Non-Tender, No Distention Extremities: Normal Inspection, Non-Tender, No Pedal Edema, Normal Capillary Refill Skin: Warm, Dry, Intact Neurological: No New Focal Deficit Psy/Mental Status: Alert, Normal Affect, Normal Mood - Patient Data Lab Results Last 24 hrs: Laboratory Results - last 24 hr 02/27/21 02/27/21 02/28/21 Range/Units 17:12 20:45 05:10 WBC 7.90 (4.23-9.07) K/mm3 RBC 4.15 L (4.63-6.08) M/mm3 Hgb 13.2 L (13.7-17.5) gm/dl Hct 38.2 L (40.1-51.0) % MCV 92.0 (79.0-92.2) fl MCH 31.8 (25.7-32.2) pg MCHC 34.6 (32.2-35.5) g/dl RDW Std Deviation 38.8 (35.1-43.9) fL Plt Count 341 H (163-337) K/mm3 MPV 9.7 (9.4-12.3) fl Neut % (Auto) 93.7 H (34.0-67.9) % Lymph % (Auto) 3.2 L (21.8-53.1) % Holt % (Auto) 3.0 L (5.3-12.2) % Eos % (Auto) 0 L (0.8-7.0) Baso % (Auto) 0.0 L (0.1-1.2) % Neut # (Auto) 7.40 H (1.78-5.38) K/mm3 Lymph # (Auto) 0.25 L (1.32-3.57) K/mm3 Holt # (Auto) 0.24 L (0.30-0.82) K/mm3 Eos # (Auto) 0.00 L (0.04-0.54) K/mm3 Baso # (Auto) 0.00 L (0.01-0.08) K/mm3 Manual Slide Review Abnormal smear D-Dimer, Quantitative (0.19-0.50) mg/L Sodium (136-145) mEq/L Potassium (3.5-5.1) mEq/L Chloride (98-107) mEq/L Carbon Dioxide (21-32) mEq/L Anion Gap (5-15) BUN (7-18) mg/dL Creatinine (0.7-1.3) mg/dL Est Cr Clr Drug Dosing mL/min Estimated GFR (MDRD) (>60) mL/min BUN/Creatinine Ratio (14-18) Glucose (70-99) mg/dL POC Glucose 287 H 214 H (70-99) mg/dL Calcium (8.5-10.1) mg/dL Phosphorus (2.6-4.7) mg/dL Magnesium (1.8-2.4) mg/dL Total Bilirubin (0.2-1.0) mg/dL AST (15-37) U/L ALT (16-63) U/L Alkaline Phosphatase (46-116) U/L C-Reactive Protein (<1.0) mg/dL Total Protein (6.4-8.2) g/dl Albumin (3.4-5.0) g/dl Globulin gm/dL Albumin/Globulin Ratio (1-2) 02/28/21 02/28/21 02/28/21 Range/Units 05:10 05:10 06:15 WBC (4.23-9.07) K/mm3 RBC (4.63-6.08) M/mm3 Hgb (13.7-17.5) gm/dl Hct (40.1-51.0) % MCV (79.0-92.2) fl MCH (25.7-32.2) pg MCHC (32.2-35.5) g/dl RDW Std Deviation (35.1-43.9) fL Plt Count (163-337) K/mm3 MPV (9.4-12.3) fl Neut % (Auto) (34.0-67.9) % Lymph % (Auto) (21.8-53.1) % Holt % (Auto) (5.3-12.2) % Eos % (Auto) (0.8-7.0) Baso % (Auto) (0.1-1.2) % Neut # (Auto) (1.78-5.38) K/mm3 Lymph # (Auto) (1.32-3.57) K/mm3 Holt # (Auto) (0.30-0.82) K/mm3 Eos # (Auto) (0.04-0.54) K/mm3 Baso # (Auto) (0.01-0.08) K/mm3 Manual Slide Review D-Dimer, Quantitative 0.93 H (0.19-0.50) mg/L Sodium 134 L (136-145) mEq/L Potassium 5.6 H (3.5-5.1) mEq/L Chloride 101 (98-107) mEq/L Carbon Dioxide 29 (21-32) mEq/L Anion Gap 9.6 (5-15) BUN 23 H (7-18) mg/dL Creatinine 0.7 (0.7-1.3) mg/dL Est Cr Clr Drug Dosing 102.40 mL/min Estimated GFR (MDRD) > 60 (>60) mL/min BUN/Creatinine Ratio 32.9 H (14-18) Glucose 152 H (70-99) mg/dL POC Glucose 138 H (70-99) mg/dL Calcium 7.8 L (8.5-10.1) mg/dL Phosphorus 3.7 (2.6-4.7) mg/dL Magnesium 2.1 (1.8-2.4) mg/dL Total Bilirubin 0.9 (0.2-1.0) mg/dL AST 14 L (15-37) U/L ALT 92 H (16-63) U/L Alkaline Phosphatase 48 (46-116) U/L C-Reactive Protein < 0.2 (<1.0) mg/dL Total Protein 4.9 L (6.4-8.2) g/dl Albumin 2.2 L (3.4-5.0) g/dl Globulin 2.7 gm/dL Albumin/Globulin Ratio 0.8 L (1-2) 02/28/21 Range/Units 11:38 WBC (4.23-9.07) K/mm3 RBC (4.63-6.08) M/mm3 Hgb (13.7-17.5) gm/dl Hct (40.1-51.0) % MCV (79.0-92.2) fl MCH (25.7-32.2) pg MCHC (32.2-35.5) g/dl RDW Std Deviation (35.1-43.9) fL Plt Count (163-337) K/mm3 MPV (9.4-12.3) fl Neut % (Auto) (34.0-67.9) % Lymph % (Auto) (21.8-53.1) % Holt % (Auto) (5.3-12.2) % Eos % (Auto) (0.8-7.0) Baso % (Auto) (0.1-1.2) % Neut # (Auto) (1.78-5.38) K/mm3 Lymph # (Auto) (1.32-3.57) K/mm3 Holt # (Auto) (0.30-0.82) K/mm3 Eos # (Auto) (0.04-0.54) K/mm3 Baso # (Auto) (0.01-0.08) K/mm3 Manual Slide Review D-Dimer, Quantitative (0.19-0.50) mg/L Sodium (136-145) mEq/L Potassium (3.5-5.1) mEq/L Chloride (98-107) mEq/L Carbon Dioxide (21-32) mEq/L Anion Gap (5-15) BUN (7-18) mg/dL Creatinine (0.7-1.3) mg/dL Est Cr Clr Drug Dosing mL/min Estimated GFR (MDRD) (>60) mL/min BUN/Creatinine Ratio (14-18) Glucose (70-99) mg/dL POC Glucose 173 H (70-99) mg/dL Calcium (8.5-10.1) mg/dL Phosphorus (2.6-4.7) mg/dL Magnesium (1.8-2.4) mg/dL Total Bilirubin (0.2-1.0) mg/dL AST (15-37) U/L ALT (16-63) U/L Alkaline Phosphatase (46-116) U/L C-Reactive Protein (<1.0) mg/dL Total Protein (6.4-8.2) g/dl Albumin (3.4-5.0) g/dl Globulin gm/dL Albumin/Globulin Ratio (1-2) Result Diagrams: 02/28/21 05:10 02/28/21 05:10 Sepsis Event Note - Evaluation Sepsis Screening Result: No Definite Risk - Focused Exam Vital Signs: Vital Signs Temp Pulse BP Pulse Ox Pulse Ox 02/28/21 14:00 90 L 02/28/21 12:00 96.5 F L 83 104/71 98 02/28/21 11:43 95 02/28/21 08:01 83 L 02/28/21 08:00 96.6 F L 89 105/57 L 89 L 02/28/21 07:55 93 L 02/28/21 07:54 90 L 02/28/21 07:53 90 L 02/28/21 07:51 88 L 02/28/21 06:45 89 L 02/28/21 04:00 97.1 F 75 124/76 88 L 02/28/21 03:01 97 - Problem List & Annotations (1) Respiratory failure with hypoxia SNOMED Code(s): 10908614616437283 Code(s): J96.91 - RESPIRATORY FAILURE, UNSPECIFIED WITH HYPOXIA Status: Acute Current Visit: Yes (2) Hypoxia SNOMED Code(s): 049175251 Code(s): R09.02 - HYPOXEMIA Status: Acute Current Visit: Yes (3) Pneumonia due to COVID-19 virus SNOMED Code(s): 356142522508339797 Code(s): U07.1 - COVID-19; J12.82 - PNEUMONIA DUE TO CORONAVIRUS DISEASE 2019 Status: Acute Current Visit: Yes - Problem List Review Problem List Initiated/Reviewed/Updated: Yes - My Orders Last 24 Hours: My Active Orders 02/27/21 14:00 methylPREDNISolone Sod Succ [Solu-MEDROL] 40 mg IVPUSH Q8H 03/01/21 05:11 C-REACTIVE PROTEIN [CHEM] AM CBC WITH AUTO DIFF [HEME] AM CMP [COMPREHENSIVE METABOLIC PN,CMP] [CHEM] AM MAGNESIUM [CHEM] AM 03/02/21 05:11 C-REACTIVE PROTEIN [CHEM] AM CBC WITH AUTO DIFF [HEME] AM CMP [COMPREHENSIVE METABOLIC PN,CMP] [CHEM] AM DD [D-DIMER QUANTITATIVE] [COAG] Q48H MAGNESIUM [CHEM] AM - Plan Plan:: Patient is a 65-year-old male with a past medical history of asthma who presents to the emergency department with a chief complaint of low oxygen at home. Patient states that he began to lose his sense of taste and smell roughly a week to a week and a half ago before admission on 02/20. In the ER it was confirmed that he was COVID-19 positive. 1. Acute hypoxic respiratory failure in the setting of COVID-19. Covid 19 pneumonia Continue supplemental oxygen. Keep oxygen saturation greater than 87 % at all times Decrease Solu-Medrol to 40 mg every 8 hours. Completed remdesivir Continue Baricitinib 4mg daily Lovenox 90 mg twice daily Continue vitamin supplements with vitamin C and zinc. Encourage proning Incentive spirometry encouraged. Bronchodilators as necessary. CRP is 0.2 D-dimer 0.93 which continues to decrease Procalcitonin 0.15 CBC, CMP and CRP daily 2. Hyperglycemia. hemoglobin A1c 6.3 Continue sliding scale insulin secondary to hyperglycemia from steroids. Patient does appear to be prediabetic. All other medical comorbidities are stable and nonactive conditions, will continue home medications at regular dose. CODE STATUS: Full code. DVT prophylaxis with enoxaparin. Prognosis: guarded. Length of stay greater then 96 hours due to slow response to treatment.
[2021-02-28] MEDS: guaiFENesin/Dextromethorphan 100-10 MG/5 ML Soln 5 ML Cup PO PRN (20:20)
[2021-02-28] MEDS: Acetaminophen 325 MG Tab PO PRN (20:21)
[2021-03-01] MEDS: guaiFENesin/Dextromethorphan 100-10 MG/5 ML Soln 5 ML Cup PO PRN ×2 (04:44→20:49)
[2021-03-01] MEDS: Benzonatate 100 MG Cap PO PRN ×2 (04:46→20:51)
[2021-03-01] MEDS: methylPREDNISolone Sodium Succinate 40 MG/1 ML SDV IVPUSH SCH ×3 (05:05→22:18)
[2021-03-01] MEDS: Albuterol/Ipratropium 3.0-0.5 MG/3 ML Neb Soln NEB PRN ×3 (06:11→16:57)
[2021-03-01] MEDS: Insulin Lispro 100 Unit/ML 3 ML KwikPen SUBCUT SCH ×4 (06:42→22:12)
[2021-03-01] MEDS: Ascorbic Acid 500 MG Tab PO SCH ×2 (08:08→20:50)
[2021-03-01] MEDS: Enoxaparin 100 MG/1 ML Syringe SUBCUT SCH ×2 (08:08→20:49)
[2021-03-01] MEDS: Zinc Sulfate 220 MG Cap PO SCH (08:08)
[2021-03-01] MEDS: Rosuvastatin 10 MG Tab PO SCH (08:09)
[2021-03-01] MEDS: Cholecalciferol (Vitamin D3) 5,000 UNIT Cap PO SCH (08:10)
--- NOTE | 2021-03-01 10:56 | PCM.PN ---
- General Info Date of Service: 03/01/21 Admission Dx/Problem (Free Text): Admission Diagnosis/Problem Admission Diagnosis/Problem Hypoxia Subjective Update: Oxygen saturations have improved and oxygen support has also been reduced. His appetite has improved and he is generally feeling well. He is able to have a conversation without having his oxygen saturations drop into the seventies and eighties. This is a significant improvement over the last couple of days. Functional Status: Reports: Pain Controlled - Review of Systems General: Reports: No Symptoms HEENT: Reports: No Symptoms Pulmonary: Reports: Cough Cardiovascular: Reports: No Symptoms Gastrointestinal: Reports: No Symptoms - Patient Data Vitals - Most Recent: Last Vital Signs Temp 97.5 F 03/01/21 07:56 Pulse 97 03/01/21 07:56 Resp 22 H 03/01/21 07:56 BP 122/74 03/01/21 07:56 Pulse Ox 96 03/01/21 10:32 Weight - Most Recent: 196 lb 12.8 oz I&O - Last 24 Hours: Intake & Output 02/28/21 03/01/21 03/01/21 22:59 06:59 14:59 Intake Total 720 800 Output Total 500 950 800 Balance 220 -150 -800 Lab Results Last 24 Hours: Laboratory Results - last 24 hr 02/28/21 02/28/21 02/28/21 Range/Units 11:38 17:00 20:25 WBC (4.23-9.07) K/mm3 RBC (4.63-6.08) M/mm3 Hgb (13.7-17.5) gm/dl Hct (40.1-51.0) % MCV (79.0-92.2) fl MCH (25.7-32.2) pg MCHC (32.2-35.5) g/dl RDW Std Deviation (35.1-43.9) fL Plt Count (163-337) K/mm3 MPV (9.4-12.3) fl Neut % (Auto) (34.0-67.9) % Lymph % (Auto) (21.8-53.1) % Noble % (Auto) (5.3-12.2) % Eos % (Auto) (0.8-7.0) Baso % (Auto) (0.1-1.2) % Neut # (Auto) (1.78-5.38) K/mm3 Lymph # (Auto) (1.32-3.57) K/mm3 Noble # (Auto) (0.30-0.82) K/mm3 Eos # (Auto) (0.04-0.54) K/mm3 Baso # (Auto) (0.01-0.08) K/mm3 Manual Slide Review Sodium (136-145) mEq/L Potassium (3.5-5.1) mEq/L Chloride (98-107) mEq/L Carbon Dioxide (21-32) mEq/L Anion Gap (5-15) BUN (7-18) mg/dL Creatinine (0.7-1.3) mg/dL Est Cr Clr Drug Dosing mL/min Estimated GFR (MDRD) (>60) mL/min BUN/Creatinine Ratio (14-18) Glucose (70-99) mg/dL POC Glucose 173 H 177 H 198 H (70-99) mg/dL Calcium (8.5-10.1) mg/dL Magnesium (1.8-2.4) mg/dL Total Bilirubin (0.2-1.0) mg/dL AST (15-37) U/L ALT (16-63) U/L Alkaline Phosphatase (46-116) U/L C-Reactive Protein (<1.0) mg/dL Total Protein (6.4-8.2) g/dl Albumin (3.4-5.0) g/dl Globulin gm/dL Albumin/Globulin Ratio (1-2) 03/01/21 03/01/21 03/01/21 Range/Units 05:15 05:16 05:16 WBC 9.37 H (4.23-9.07) K/mm3 RBC 4.47 L (4.63-6.08) M/mm3 Hgb 14.0 (13.7-17.5) gm/dl Hct 41.6 (40.1-51.0) % MCV 93.1 H (79.0-92.2) fl MCH 31.3 (25.7-32.2) pg MCHC 33.7 (32.2-35.5) g/dl RDW Std Deviation 39.4 (35.1-43.9) fL Plt Count 439 H D (163-337) K/mm3 MPV 9.6 (9.4-12.3) fl Neut % (Auto) 93.0 H (34.0-67.9) % Lymph % (Auto) 3.6 L (21.8-53.1) % Noble % (Auto) 3.2 L (5.3-12.2) % Eos % (Auto) 0 L (0.8-7.0) Baso % (Auto) 0.0 L (0.1-1.2) % Neut # (Auto) 8.71 H (1.78-5.38) K/mm3 Lymph # (Auto) 0.34 L (1.32-3.57) K/mm3 Noble # (Auto) 0.30 (0.30-0.82) K/mm3 Eos # (Auto) 0.00 L (0.04-0.54) K/mm3 Baso # (Auto) 0.00 L (0.01-0.08) K/mm3 Manual Slide Review Abnormal smear Sodium 136 (136-145) mEq/L Potassium 5.4 H (3.5-5.1) mEq/L Chloride 99 (98-107) mEq/L Carbon Dioxide 29 (21-32) mEq/L Anion Gap 13.4 (5-15) BUN 25 H (7-18) mg/dL Creatinine 0.8 (0.7-1.3) mg/dL Est Cr Clr Drug Dosing 89.60 mL/min Estimated GFR (MDRD) > 60 (>60) mL/min BUN/Creatinine Ratio 31.3 H (14-18) Glucose 148 H (70-99) mg/dL POC Glucose 143 H (70-99) mg/dL Calcium 8.1 L (8.5-10.1) mg/dL Magnesium 2.2 (1.8-2.4) mg/dL Total Bilirubin 1.1 H (0.2-1.0) mg/dL AST 14 L (15-37) U/L ALT 88 H (16-63) U/L Alkaline Phosphatase 50 (46-116) U/L C-Reactive Protein <0.2 (<1.0) mg/dL Total Protein 5.6 L (6.4-8.2) g/dl Albumin 2.5 L (3.4-5.0) g/dl Globulin 3.1 gm/dL Albumin/Globulin Ratio 0.8 L (1-2) Med Orders - Current: Current Medications Acetaminophen (Acetaminophen 325 Mg Tab) 650 mg PO Q4H PRN PRN Reason: Fever Greater Than 101 Last Admin: 02/28/21 20:21 Dose: 650 mg Documented by: Albuterol/Ipratropium (Albuterol/Ipratropium 3.0-0.5 Mg/3 Ml Neb Soln) 3 ml NEB Q4HRRT PRN PRN Reason: Shortness of Breath Last Admin: 03/01/21 08:34 Dose: 3 ml Documented by: Ascorbic Acid (Ascorbic Acid 500 Mg Tab) 500 mg PO BID [facility] Last Admin: 03/01/21 08:08 Dose: 500 mg Documented by: Baricitinib (Baricitinib 2 Mg Tab) 4 mg PO DAILY [facility] Stop: 03/07/21 09:01 Last Admin: 03/01/21 08:08 Dose: 4 mg Documented by: Benzonatate (Benzonatate 100 Mg Cap) 100 mg PO Q8H PRN PRN Reason: Cough Last Admin: 03/01/21 04:46 Dose: 100 mg Documented by: Cholecalciferol (Cholecalciferol (Vitamin D3) 5,000 Unit Cap) 5,000 unit PO DAILY [facility] Last Admin: 03/01/21 08:10 Dose: 5,000 unit Documented by: Enoxaparin Sodium (Enoxaparin 100 Mg/1 Ml Syringe) 90 mg SUBCUT BID [facility] Last Admin: 03/01/21 08:08 Dose: 90 mg Documented by: Guaifenesin/Dextromethorphan (Guaifenesin/Dextromethorphan 100-10 Mg/5 Ml Soln 5 Ml Cup) 5 ml PO Q6H PRN PRN Reason: Cough Last Admin: 03/01/21 04:44 Dose: 5 ml Documented by: Insulin Human Lispro (Insulin Lispro 100 Unit/Ml 3 Ml Kwikpen) 0 unit SUBCUT QIDACANDBED [facility]; Protocol Last Admin: 03/01/21 06:42 Dose: Not Given Documented by: Methylprednisolone Sodium Succinate (Methylprednisolone Sodium Succinate 40 Mg/1 Ml Sdv) 40 mg IVPUSH Q8H [facility] Last Admin: 03/01/21 05:05 Dose: 40 mg Documented by: Rosuvastatin Calcium (Rosuvastatin 10 Mg Tab) 5 mg PO DAILY [facility] Last Admin: 03/01/21 08:09 Dose: 5 mg Documented by: Sodium Chloride (Sodium Chloride 0.9% 10 Ml Syringe) 10 ml FLUSH ASDIRECTED PRN PRN Reason: Keep Vein Open Last Admin: 02/20/21 09:40 Dose: 10 ml Documented by: Zinc Sulfate (Zinc Sulfate 220 Mg Cap) 220 mg PO DAILY [facility] Last Admin: 03/01/21 08:08 Dose: 220 mg Documented by: Discontinued Medications Albuterol/Ipratropium (Albuterol/Ipratropium 3.0-0.5 Mg/3 Ml Neb Soln) 3 ml NEB ONETIME ONE Stop: 02/20/21 09:57 Last Admin: 02/20/21 10:24 Dose: 3 ml Documented by: Dexamethasone (Dexamethasone 4 Mg/Ml Sdv) 6 mg IVPUSH ONETIME ONE Stop: 02/20/21 12:16 Last Admin: 02/20/21 15:34 Dose: Not Given Documented by: Enoxaparin Sodium (Enoxaparin 40 Mg/0.4 Ml Syringe) 40 mg SUBCUT DAILY [facility] Last Admin: 02/21/21 08:20 Dose: 40 mg Documented by: Sodium Chloride (Normal Saline) 1,000 mls @ 1,000 mls/hr IV .BOLUS [facility] Last Admin: 02/20/21 09:40 Dose: 1,000 mls/hr Documented by: Remdesivir 200 mg/ Sodium (Chloride) 250 mls @ 250 mls/hr IV ONETIME ONE Stop: 02/20/21 13:39 Last Admin: 02/20/21 12:47 Dose: 250 mls/hr Documented by: Remdesivir 100 mg/ Sodium (Chloride) 100 mls @ 100 mls/hr IV Q24H [facility] Stop: 02/24/21 13:59 Last Admin: 02/24/21 12:30 Dose: 100 mls/hr Documented by: Methylprednisolone Sodium Succinate (Methylprednisolone Sodium Succinate 125 Mg/2 Ml Sdv) 125 mg IVPUSH ONETIME ONE Stop: 02/20/21 12:26 Last Admin: 02/20/21 12:45 Dose: 125 mg Documented by: Methylprednisolone Sodium Succinate (Methylprednisolone Sodium Succinate 40 Mg/1 Ml Sdv) 40 mg IVPUSH Q6H [facility] Last Admin: 02/22/21 06:41 Dose: 40 mg Documented by: Methylprednisolone Sodium Succinate (Methylprednisolone Sodium Succinate 125 Mg/2 Ml Sdv) 40 mg IVPUSH Q6H [facility] Last Admin: 02/23/21 06:00 Dose: 40 mg Documented by: Methylprednisolone Sodium Succinate (Methylprednisolone Sodium Succinate 125 Mg/2 Ml Sdv) 60 mg IVPUSH Q6H [facility] Last Admin: 02/26/21 08:11 Dose: 60 mg Documented by: Methylprednisolone Sodium Succinate (Methylprednisolone Sodium Succinate 40 Mg/1 Ml Sdv) 40 mg IVPUSH Q6H [facility] Last Admin: 02/27/21 08:03 Dose: 40 mg Documented by: - Exam Quality Assessment: Supplemental Oxygen General: Alert, Oriented HEENT: Pupils Equal, Mucous Membr. Moist/[place] Lungs: Normal Respiratory Effort, Crackles (Bibasilar up to mid lung field.) Cardiovascular: Regular Rate, Regular Rhythm GI/Abdominal Exam: Normal Bowel Sounds, Soft, Non-Tender, No Distention Extremities: Normal Inspection, Normal Range of Motion, Non-Tender, No Pedal Edema, Normal Capillary Refill Skin: Warm, Dry, Intact Psy/Mental Status: Alert, Normal Affect, Normal Mood - Patient Data Lab Results Last 24 hrs: Laboratory Results - last 24 hr 02/28/21 02/28/21 02/28/21 Range/Units 11:38 17:00 20:25 WBC (4.23-9.07) K/mm3 RBC (4.63-6.08) M/mm3 Hgb (13.7-17.5) gm/dl Hct (40.1-51.0) % MCV (79.0-92.2) fl MCH (25.7-32.2) pg MCHC (32.2-35.5) g/dl RDW Std Deviation (35.1-43.9) fL Plt Count (163-337) K/mm3 MPV (9.4-12.3) fl Neut % (Auto) (34.0-67.9) % Lymph % (Auto) (21.8-53.1) % Noble % (Auto) (5.3-12.2) % Eos % (Auto) (0.8-7.0) Baso % (Auto) (0.1-1.2) % Neut # (Auto) (1.78-5.38) K/mm3 Lymph # (Auto) (1.32-3.57) K/mm3 Noble # (Auto) (0.30-0.82) K/mm3 Eos # (Auto) (0.04-0.54) K/mm3 Baso # (Auto) (0.01-0.08) K/mm3 Manual Slide Review Sodium (136-145) mEq/L Potassium (3.5-5.1) mEq/L Chloride (98-107) mEq/L Carbon Dioxide (21-32) mEq/L Anion Gap (5-15) BUN (7-18) mg/dL Creatinine (0.7-1.3) mg/dL Est Cr Clr Drug Dosing mL/min Estimated GFR (MDRD) (>60) mL/min BUN/Creatinine Ratio (14-18) Glucose (70-99) mg/dL POC Glucose 173 H 177 H 198 H (70-99) mg/dL Calcium (8.5-10.1) mg/dL Magnesium (1.8-2.4) mg/dL Total Bilirubin (0.2-1.0) mg/dL AST (15-37) U/L ALT (16-63) U/L Alkaline Phosphatase (46-116) U/L C-Reactive Protein (<1.0) mg/dL Total Protein (6.4-8.2) g/dl Albumin (3.4-5.0) g/dl Globulin gm/dL Albumin/Globulin Ratio (1-2) 03/01/21 03/01/21 03/01/21 Range/Units 05:15 05:16 05:16 WBC 9.37 H (4.23-9.07) K/mm3 RBC 4.47 L (4.63-6.08) M/mm3 Hgb 14.0 (13.7-17.5) gm/dl Hct 41.6 (40.1-51.0) % MCV 93.1 H (79.0-92.2) fl MCH 31.3 (25.7-32.2) pg MCHC 33.7 (32.2-35.5) g/dl RDW Std Deviation 39.4 (35.1-43.9) fL Plt Count 439 H D (163-337) K/mm3 MPV 9.6 (9.4-12.3) fl Neut % (Auto) 93.0 H (34.0-67.9) % Lymph % (Auto) 3.6 L (21.8-53.1) % Noble % (Auto) 3.2 L (5.3-12.2) % Eos % (Auto) 0 L (0.8-7.0) Baso % (Auto) 0.0 L (0.1-1.2) % Neut # (Auto) 8.71 H (1.78-5.38) K/mm3 Lymph # (Auto) 0.34 L (1.32-3.57) K/mm3 Noble # (Auto) 0.30 (0.30-0.82) K/mm3 Eos # (Auto) 0.00 L (0.04-0.54) K/mm3 Baso # (Auto) 0.00 L (0.01-0.08) K/mm3 Manual Slide Review Abnormal smear Sodium 136 (136-145) mEq/L Potassium 5.4 H (3.5-5.1) mEq/L Chloride 99 (98-107) mEq/L Carbon Dioxide 29 (21-32) mEq/L Anion Gap 13.4 (5-15) BUN 25 H (7-18) mg/dL Creatinine 0.8 (0.7-1.3) mg/dL Est Cr Clr Drug Dosing 89.60 mL/min Estimated GFR (MDRD) > 60 (>60) mL/min BUN/Creatinine Ratio 31.3 H (14-18) Glucose 148 H (70-99) mg/dL POC Glucose 143 H (70-99) mg/dL Calcium 8.1 L (8.5-10.1) mg/dL Magnesium 2.2 (1.8-2.4) mg/dL Total Bilirubin 1.1 H (0.2-1.0) mg/dL AST 14 L (15-37) U/L ALT 88 H (16-63) U/L Alkaline Phosphatase 50 (46-116) U/L C-Reactive Protein <0.2 (<1.0) mg/dL Total Protein 5.6 L (6.4-8.2) g/dl Albumin 2.5 L (3.4-5.0) g/dl Globulin 3.1 gm/dL Albumin/Globulin Ratio 0.8 L (1-2) Result Diagrams: 03/01/21 05:16 03/01/21 05:16 Sepsis Event Note - Evaluation Sepsis Screening Result: No Definite Risk - Focused Exam Vital Signs: Vital Signs Temp Pulse Resp BP BP Pulse Ox Pulse Ox 03/01/21 10:32 96 03/01/21 08:55 96 03/01/21 08:35 91 L 03/01/21 07:56 97.5 F 97 22 H 122/74 03/01/21 06:45 98 03/01/21 06:13 96 03/01/21 06:00 95 03/01/21 05:00 87 L 03/01/21 04:50 96.8 F L 66 22 H 130/76 87 L 03/01/21 04:49 88 L 03/01/21 04:00 97 03/01/21 03:00 98 03/01/21 02:00 99 03/01/21 01:00 98 03/01/21 00:00 98 02/28/21 23:00 100 - Problem List & Annotations (1) Respiratory failure with hypoxia SNOMED Code(s): 53926495947747637 Code(s): J96.91 - RESPIRATORY FAILURE, UNSPECIFIED WITH HYPOXIA Status: Acute Current Visit: Yes (2) Hypoxia SNOMED Code(s): 866982679 Code(s): R09.02 - HYPOXEMIA Status: Acute Current Visit: Yes (3) Pneumonia due to COVID-19 virus SNOMED Code(s): 144065347344238848 Code(s): U07.1 - COVID-19; J12.82 - PNEUMONIA DUE TO CORONAVIRUS DISEASE 2019 Status: Acute Current Visit: Yes - Problem List Review Problem List Initiated/Reviewed/Updated: Yes - My Orders Last 24 Hours: My Active Orders 03/02/21 05:11 C-REACTIVE PROTEIN [CHEM] AM CBC WITH AUTO DIFF [HEME] AM CMP [COMPREHENSIVE METABOLIC PN,CMP] [CHEM] AM DD [D-DIMER QUANTITATIVE] [COAG] Q48H MAGNESIUM [CHEM] AM - Plan Plan:: Patient is a 65-year-old male with a past medical history of asthma who presents to the emergency department with a chief complaint of low oxygen at home. Patient states that he began to lose his sense of taste and smell roughly a week to a week and a half ago before admission on 02/20. In the ER it was confirmed that he was COVID-19 positive. 1. Acute hypoxic respiratory failure in the setting of COVID-19. Covid 19 pneumonia Continue supplemental oxygen. Keep oxygen saturation greater than 87 % at all times Solu-Medrol to 40 mg every 8 hours. Completed remdesivir Continue Baricitinib 4mg daily Lovenox 90 mg twice daily Continue vitamin supplements with vitamin C and zinc. Encourage proning Incentive spirometry encouraged. Bronchodilators as necessary. CRP is less than 0.2 CBC, CMP and CRP daily 2. Hyperglycemia. hemoglobin A1c 6.3 Continue sliding scale insulin secondary to hyperglycemia from steroids. Patient does appear to be prediabetic. All other medical comorbidities are stable and nonactive conditions, will continue home medications at regular dose. CODE STATUS: Full code. DVT prophylaxis with enoxaparin. Prognosis: guarded. Length of stay greater then 96 hours due to slow response to treatment.
[2021-03-01] MEDS: Acetaminophen 325 MG Tab PO PRN (20:50)
[2021-03-02] MEDS: guaiFENesin/Dextromethorphan 100-10 MG/5 ML Soln 5 ML Cup PO PRN (05:07)
[2021-03-02] MEDS: Benzonatate 100 MG Cap PO PRN (05:07)
[2021-03-02] MEDS: methylPREDNISolone Sodium Succinate 40 MG/1 ML SDV IVPUSH SCH ×2 (05:07→17:13)
[2021-03-02] MEDS: Albuterol/Ipratropium 3.0-0.5 MG/3 ML Neb Soln NEB PRN (05:49)
[2021-03-02] MEDS: Insulin Lispro 100 Unit/ML 3 ML KwikPen SUBCUT SCH ×4 (06:53→22:33)
[2021-03-02] MEDS: Enoxaparin 100 MG/1 ML Syringe SUBCUT SCH ×2 (08:16→20:00)
[2021-03-02] MEDS: Ascorbic Acid 500 MG Tab PO SCH ×2 (08:16→20:01)
[2021-03-02] MEDS: Zinc Sulfate 220 MG Cap PO SCH (08:16)
[2021-03-02] MEDS: Rosuvastatin 10 MG Tab PO SCH (08:17)
[2021-03-02] MEDS: Cholecalciferol (Vitamin D3) 5,000 UNIT Cap PO SCH (08:17)
--- NOTE | 2021-03-02 13:33 | PCM.PN ---
- General Info Date of Service: 03/02/21 Admission Dx/Problem (Free Text): Admission Diagnosis/Problem Admission Diagnosis/Problem Hypoxia Subjective Update: Oxygen saturations have improved and oxygen support has also been reduced. His appetite has improved and he is generally feeling well. He is able to have a conversation without having his oxygen saturations drop into the seventies and eighties. This is a significant improvement over the last couple of days. - Review of Systems General: Reports: No Symptoms HEENT: Reports: No Symptoms Pulmonary: Reports: Shortness of Breath, Cough Cardiovascular: Reports: No Symptoms Gastrointestinal: Reports: No Symptoms Musculoskeletal: Reports: No Symptoms Skin: Reports: No Symptoms - Patient Data Vitals - Most Recent: Last Vital Signs Temp 96.8 F L 03/02/21 12:00 Pulse 99 03/02/21 12:00 Resp 24 H 03/02/21 12:00 BP 117/80 03/02/21 12:00 Pulse Ox 96 03/02/21 13:05 Weight - Most Recent: 197 lb I&O - Last 24 Hours: Intake & Output 03/01/21 03/02/21 03/02/21 22:59 06:59 14:59 Intake Total 1140 800 Output Total 700 1850 500 Balance 440 -1050 -500 Lab Results Last 24 Hours: Laboratory Results - last 24 hr 03/01/21 03/01/21 03/02/21 Range/Units 16:39 20:45 06:05 WBC 7.90 (4.23-9.07) K/mm3 RBC 4.23 L (4.63-6.08) M/mm3 Hgb 13.3 L (13.7-17.5) gm/dl Hct 39.4 L (40.1-51.0) % MCV 93.1 H (79.0-92.2) fl MCH 31.4 (25.7-32.2) pg MCHC 33.8 (32.2-35.5) g/dl RDW Std Deviation 39.3 (35.1-43.9) fL Plt Count 380 H (163-337) K/mm3 MPV 9.6 (9.4-12.3) fl Neut % (Auto) 91.3 H (34.0-67.9) % Lymph % (Auto) 3.8 L (21.8-53.1) % [place] % (Auto) 4.6 L (5.3-12.2) % Eos % (Auto) 0 L (0.8-7.0) Baso % (Auto) 0.0 L (0.1-1.2) % Neut # (Auto) 7.22 H (1.78-5.38) K/mm3 Lymph # (Auto) 0.30 L (1.32-3.57) K/mm3 [place] # (Auto) 0.36 (0.30-0.82) K/mm3 Eos # (Auto) 0.00 L (0.04-0.54) K/mm3 Baso # (Auto) 0.00 L (0.01-0.08) K/mm3 Manual Slide Review Abnormal smear D-Dimer, Quantitative (0.19-0.50) mg/L Sodium (136-145) mEq/L Potassium (3.5-5.1) mEq/L Chloride (98-107) mEq/L Carbon Dioxide (21-32) mEq/L Anion Gap (5-15) BUN (7-18) mg/dL Creatinine (0.7-1.3) mg/dL Est Cr Clr Drug Dosing mL/min Estimated GFR (MDRD) (>60) mL/min BUN/Creatinine Ratio (14-18) Glucose (70-99) mg/dL POC Glucose 171 H 216 H (70-99) mg/dL Calcium (8.5-10.1) mg/dL Magnesium (1.8-2.4) mg/dL Total Bilirubin (0.2-1.0) mg/dL AST (15-37) U/L ALT (16-63) U/L Alkaline Phosphatase (46-116) U/L C-Reactive Protein (<1.0) mg/dL Total Protein (6.4-8.2) g/dl Albumin (3.4-5.0) g/dl Globulin gm/dL Albumin/Globulin Ratio (1-2) 03/02/21 03/02/21 03/02/21 Range/Units 06:05 06:05 06:05 WBC (4.23-9.07) K/mm3 RBC (4.63-6.08) M/mm3 Hgb (13.7-17.5) gm/dl Hct (40.1-51.0) % MCV (79.0-92.2) fl MCH (25.7-32.2) pg MCHC (32.2-35.5) g/dl RDW Std Deviation (35.1-43.9) fL Plt Count (163-337) K/mm3 MPV (9.4-12.3) fl Neut % (Auto) (34.0-67.9) % Lymph % (Auto) (21.8-53.1) % [place] % (Auto) (5.3-12.2) % Eos % (Auto) (0.8-7.0) Baso % (Auto) (0.1-1.2) % Neut # (Auto) (1.78-5.38) K/mm3 Lymph # (Auto) (1.32-3.57) K/mm3 [place] # (Auto) (0.30-0.82) K/mm3 Eos # (Auto) (0.04-0.54) K/mm3 Baso # (Auto) (0.01-0.08) K/mm3 Manual Slide Review D-Dimer, Quantitative 0.88 H (0.19-0.50) mg/L Sodium 135 L (136-145) mEq/L Potassium 5.2 H (3.5-5.1) mEq/L Chloride 100 (98-107) mEq/L Carbon Dioxide 30 (21-32) mEq/L Anion Gap 10.2 (5-15) BUN 24 H (7-18) mg/dL Creatinine 0.8 (0.7-1.3) mg/dL Est Cr Clr Drug Dosing 89.60 mL/min Estimated GFR (MDRD) > 60 (>60) mL/min BUN/Creatinine Ratio 30.0 H (14-18) Glucose 136 H (70-99) mg/dL POC Glucose 135 H (70-99) mg/dL Calcium 8.0 L (8.5-10.1) mg/dL Magnesium 2.2 (1.8-2.4) mg/dL Total Bilirubin 1.1 H (0.2-1.0) mg/dL AST 13 L (15-37) U/L ALT 82 H (16-63) U/L Alkaline Phosphatase 45 L (46-116) U/L C-Reactive Protein <0.2 (<1.0) mg/dL Total Protein 5.4 L (6.4-8.2) g/dl Albumin 2.4 L (3.4-5.0) g/dl Globulin 3.0 gm/dL Albumin/Globulin Ratio 0.8 L (1-2) 03/02/21 Range/Units 12:33 WBC (4.23-9.07) K/mm3 RBC (4.63-6.08) M/mm3 Hgb (13.7-17.5) gm/dl Hct (40.1-51.0) % MCV (79.0-92.2) fl MCH (25.7-32.2) pg MCHC (32.2-35.5) g/dl RDW Std Deviation (35.1-43.9) fL Plt Count (163-337) K/mm3 MPV (9.4-12.3) fl Neut % (Auto) (34.0-67.9) % Lymph % (Auto) (21.8-53.1) % [place] % (Auto) (5.3-12.2) % Eos % (Auto) (0.8-7.0) Baso % (Auto) (0.1-1.2) % Neut # (Auto) (1.78-5.38) K/mm3 Lymph # (Auto) (1.32-3.57) K/mm3 [place] # (Auto) (0.30-0.82) K/mm3 Eos # (Auto) (0.04-0.54) K/mm3 Baso # (Auto) (0.01-0.08) K/mm3 Manual Slide Review D-Dimer, Quantitative (0.19-0.50) mg/L Sodium (136-145) mEq/L Potassium (3.5-5.1) mEq/L Chloride (98-107) mEq/L Carbon Dioxide (21-32) mEq/L Anion Gap (5-15) BUN (7-18) mg/dL Creatinine (0.7-1.3) mg/dL Est Cr Clr Drug Dosing mL/min Estimated GFR (MDRD) (>60) mL/min BUN/Creatinine Ratio (14-18) Glucose (70-99) mg/dL POC Glucose 142 H (70-99) mg/dL Calcium (8.5-10.1) mg/dL Magnesium (1.8-2.4) mg/dL Total Bilirubin (0.2-1.0) mg/dL AST (15-37) U/L ALT (16-63) U/L Alkaline Phosphatase (46-116) U/L C-Reactive Protein (<1.0) mg/dL Total Protein (6.4-8.2) g/dl Albumin (3.4-5.0) g/dl Globulin gm/dL Albumin/Globulin Ratio (1-2) Med Orders - Current: Current Medications Acetaminophen (Acetaminophen 325 Mg Tab) 650 mg PO Q4H PRN PRN Reason: Fever Greater Than 101 Last Admin: 03/01/21 20:50 Dose: 650 mg Documented by: Albuterol/Ipratropium (Albuterol/Ipratropium 3.0-0.5 Mg/3 Ml Neb Soln) 3 ml NEB Q4HRRT PRN PRN Reason: Shortness of Breath Last Admin: 03/02/21 05:49 Dose: 3 ml Documented by: Ascorbic Acid (Ascorbic Acid 500 Mg Tab) 500 mg PO BID [facility] Last Admin: 03/02/21 08:16 Dose: 500 mg Documented by: Baricitinib (Baricitinib 2 Mg Tab) 4 mg PO DAILY [facility] Stop: 03/07/21 09:01 Last Admin: 03/02/21 08:16 Dose: 4 mg Documented by: Benzonatate (Benzonatate 100 Mg Cap) 100 mg PO Q8H PRN PRN Reason: Cough Last Admin: 03/02/21 05:07 Dose: 100 mg Documented by: Cholecalciferol (Cholecalciferol (Vitamin D3) 5,000 Unit Cap) 5,000 unit PO DAILY [facility] Last Admin: 03/02/21 08:17 Dose: 5,000 unit Documented by: Enoxaparin Sodium (Enoxaparin 100 Mg/1 Ml Syringe) 90 mg SUBCUT BID [facility] Last Admin: 03/02/21 08:16 Dose: 90 mg Documented by: Guaifenesin/Dextromethorphan (Guaifenesin/Dextromethorphan 100-10 Mg/5 Ml Soln 5 Ml Cup) 5 ml PO Q6H PRN PRN Reason: Cough Last Admin: 03/02/21 05:07 Dose: 5 ml Documented by: Insulin Human Lispro (Insulin Lispro 100 Unit/Ml 3 Ml Kwikpen) 0 unit SUBCUT QIDACANDBED [facility]; Protocol Last Admin: 03/02/21 12:47 Dose: Not Given Documented by: Methylprednisolone Sodium Succinate (Methylprednisolone Sodium Succinate 40 Mg/1 Ml Sdv) 40 mg IVPUSH Q12H [facility] Rosuvastatin Calcium (Rosuvastatin 10 Mg Tab) 5 mg PO DAILY [facility] Last Admin: 03/02/21 08:17 Dose: 5 mg Documented by: Sodium Chloride (Sodium Chloride 0.9% 10 Ml Syringe) 10 ml FLUSH ASDIRECTED PRN PRN Reason: Keep Vein Open Last Admin: 02/20/21 09:40 Dose: 10 ml Documented by: Zinc Sulfate (Zinc Sulfate 220 Mg Cap) 220 mg PO DAILY [facility] Last Admin: 03/02/21 08:16 Dose: 220 mg Documented by: Discontinued Medications Albuterol/Ipratropium (Albuterol/Ipratropium 3.0-0.5 Mg/3 Ml Neb Soln) 3 ml NEB ONETIME ONE Stop: 02/20/21 09:57 Last Admin: 02/20/21 10:24 Dose: 3 ml Documented by: Dexamethasone (Dexamethasone 4 Mg/Ml Sdv) 6 mg IVPUSH ONETIME ONE Stop: 02/20/21 12:16 Last Admin: 02/20/21 15:34 Dose: Not Given Documented by: Enoxaparin Sodium (Enoxaparin 40 Mg/0.4 Ml Syringe) 40 mg SUBCUT DAILY [facility] Last Admin: 02/21/21 08:20 Dose: 40 mg Documented by: Sodium Chloride (Normal Saline) 1,000 mls @ 1,000 mls/hr IV .BOLUS [facility] Last Admin: 02/20/21 09:40 Dose: 1,000 mls/hr Documented by: Remdesivir 200 mg/ Sodium (Chloride) 250 mls @ 250 mls/hr IV ONETIME ONE Stop: 02/20/21 13:39 Last Admin: 02/20/21 12:47 Dose: 250 mls/hr Documented by: Remdesivir 100 mg/ Sodium (Chloride) 100 mls @ 100 mls/hr IV Q24H [facility] Stop: 02/24/21 13:59 Last Admin: 02/24/21 12:30 Dose: 100 mls/hr Documented by: Methylprednisolone Sodium Succinate (Methylprednisolone Sodium Succinate 125 Mg/2 Ml Sdv) 125 mg IVPUSH ONETIME ONE Stop: 02/20/21 12:26 Last Admin: 02/20/21 12:45 Dose: 125 mg Documented by: Methylprednisolone Sodium Succinate (Methylprednisolone Sodium Succinate 40 Mg/1 Ml Sdv) 40 mg IVPUSH Q6H [facility] Last Admin: 02/22/21 06:41 Dose: 40 mg Documented by: Methylprednisolone Sodium Succinate (Methylprednisolone Sodium Succinate 125 Mg/2 Ml Sdv) 40 mg IVPUSH Q6H [facility] Last Admin: 02/23/21 06:00 Dose: 40 mg Documented by: Methylprednisolone Sodium Succinate (Methylprednisolone Sodium Succinate 125 Mg/2 Ml Sdv) 60 mg IVPUSH Q6H [facility] Last Admin: 02/26/21 08:11 Dose: 60 mg Documented by: Methylprednisolone Sodium Succinate (Methylprednisolone Sodium Succinate 40 Mg/1 Ml Sdv) 40 mg IVPUSH Q6H [facility] Last Admin: 02/27/21 08:03 Dose: 40 mg Documented by: Methylprednisolone Sodium Succinate (Methylprednisolone Sodium Succinate 40 Mg/1 Ml Sdv) 40 mg IVPUSH Q8H [facility] Last Admin: 03/02/21 05:07 Dose: 40 mg Documented by: - Exam Quality Assessment: Supplemental Oxygen General: Alert, Oriented HEENT: Pupils Equal, Mucous Membr. Moist/[place] Neck: Supple Lungs: Normal Respiratory Effort, Crackles (Bibasilar) Cardiovascular: Regular Rate, Regular Rhythm GI/Abdominal Exam: Normal Bowel Sounds, Soft, Non-Tender, No Organomegaly, No Distention, No Abnormal Bruit, No Mass Extremities: Normal Inspection, Normal Range of Motion, Non-Tender, No Pedal Edema, Normal Capillary Refill Skin: Warm, Dry, Intact Psy/Mental Status: Alert, Normal Affect, Normal Mood - Patient Data Lab Results Last 24 hrs: Laboratory Results - last 24 hr 03/01/21 03/01/21 03/02/21 Range/Units 16:39 20:45 06:05 WBC 7.90 (4.23-9.07) K/mm3 RBC 4.23 L (4.63-6.08) M/mm3 Hgb 13.3 L (13.7-17.5) gm/dl Hct 39.4 L (40.1-51.0) % MCV 93.1 H (79.0-92.2) fl MCH 31.4 (25.7-32.2) pg MCHC 33.8 (32.2-35.5) g/dl RDW Std Deviation 39.3 (35.1-43.9) fL Plt Count 380 H (163-337) K/mm3 MPV 9.6 (9.4-12.3) fl Neut % (Auto) 91.3 H (34.0-67.9) % Lymph % (Auto) 3.8 L (21.8-53.1) % [place] % (Auto) 4.6 L (5.3-12.2) % Eos % (Auto) 0 L (0.8-7.0) Baso % (Auto) 0.0 L (0.1-1.2) % Neut # (Auto) 7.22 H (1.78-5.38) K/mm3 Lymph # (Auto) 0.30 L (1.32-3.57) K/mm3 [place] # (Auto) 0.36 (0.30-0.82) K/mm3 Eos # (Auto) 0.00 L (0.04-0.54) K/mm3 Baso # (Auto) 0.00 L (0.01-0.08) K/mm3 Manual Slide Review Abnormal smear D-Dimer, Quantitative (0.19-0.50) mg/L Sodium (136-145) mEq/L Potassium (3.5-5.1) mEq/L Chloride (98-107) mEq/L Carbon Dioxide (21-32) mEq/L Anion Gap (5-15) BUN (7-18) mg/dL Creatinine (0.7-1.3) mg/dL Est Cr Clr Drug Dosing mL/min Estimated GFR (MDRD) (>60) mL/min BUN/Creatinine Ratio (14-18) Glucose (70-99) mg/dL POC Glucose 171 H 216 H (70-99) mg/dL Calcium (8.5-10.1) mg/dL Magnesium (1.8-2.4) mg/dL Total Bilirubin (0.2-1.0) mg/dL AST (15-37) U/L ALT (16-63) U/L Alkaline Phosphatase (46-116) U/L C-Reactive Protein (<1.0) mg/dL Total Protein (6.4-8.2) g/dl Albumin (3.4-5.0) g/dl Globulin gm/dL Albumin/Globulin Ratio (1-2) 03/02/21 03/02/21 03/02/21 Range/Units 06:05 06:05 06:05 WBC (4.23-9.07) K/mm3 RBC (4.63-6.08) M/mm3 Hgb (13.7-17.5) gm/dl Hct (40.1-51.0) % MCV (79.0-92.2) fl MCH (25.7-32.2) pg MCHC (32.2-35.5) g/dl RDW Std Deviation (35.1-43.9) fL Plt Count (163-337) K/mm3 MPV (9.4-12.3) fl Neut % (Auto) (34.0-67.9) % Lymph % (Auto) (21.8-53.1) % [place] % (Auto) (5.3-12.2) % Eos % (Auto) (0.8-7.0) Baso % (Auto) (0.1-1.2) % Neut # (Auto) (1.78-5.38) K/mm3 Lymph # (Auto) (1.32-3.57) K/mm3 [place] # (Auto) (0.30-0.82) K/mm3 Eos # (Auto) (0.04-0.54) K/mm3 Baso # (Auto) (0.01-0.08) K/mm3 Manual Slide Review D-Dimer, Quantitative 0.88 H (0.19-0.50) mg/L Sodium 135 L (136-145) mEq/L Potassium 5.2 H (3.5-5.1) mEq/L Chloride 100 (98-107) mEq/L Carbon Dioxide 30 (21-32) mEq/L Anion Gap 10.2 (5-15) BUN 24 H (7-18) mg/dL Creatinine 0.8 (0.7-1.3) mg/dL Est Cr Clr Drug Dosing 89.60 mL/min Estimated GFR (MDRD) > 60 (>60) mL/min BUN/Creatinine Ratio 30.0 H (14-18) Glucose 136 H (70-99) mg/dL POC Glucose 135 H (70-99) mg/dL Calcium 8.0 L (8.5-10.1) mg/dL Magnesium 2.2 (1.8-2.4) mg/dL Total Bilirubin 1.1 H (0.2-1.0) mg/dL AST 13 L (15-37) U/L ALT 82 H (16-63) U/L Alkaline Phosphatase 45 L (46-116) U/L C-Reactive Protein <0.2 (<1.0) mg/dL Total Protein 5.4 L (6.4-8.2) g/dl Albumin 2.4 L (3.4-5.0) g/dl Globulin 3.0 gm/dL Albumin/Globulin Ratio 0.8 L (1-2) 03/02/21 Range/Units 12:33 WBC (4.23-9.07) K/mm3 RBC (4.63-6.08) M/mm3 Hgb (13.7-17.5) gm/dl Hct (40.1-51.0) % MCV (79.0-92.2) fl MCH (25.7-32.2) pg MCHC (32.2-35.5) g/dl RDW Std Deviation (35.1-43.9) fL Plt Count (163-337) K/mm3 MPV (9.4-12.3) fl Neut % (Auto) (34.0-67.9) % Lymph % (Auto) (21.8-53.1) % [place] % (Auto) (5.3-12.2) % Eos % (Auto) (0.8-7.0) Baso % (Auto) (0.1-1.2) % Neut # (Auto) (1.78-5.38) K/mm3 Lymph # (Auto) (1.32-3.57) K/mm3 [place] # (Auto) (0.30-0.82) K/mm3 Eos # (Auto) (0.04-0.54) K/mm3 Baso # (Auto) (0.01-0.08) K/mm3 Manual Slide Review D-Dimer, Quantitative (0.19-0.50) mg/L Sodium (136-145) mEq/L Potassium (3.5-5.1) mEq/L Chloride (98-107) mEq/L Carbon Dioxide (21-32) mEq/L Anion Gap (5-15) BUN (7-18) mg/dL Creatinine (0.7-1.3) mg/dL Est Cr Clr Drug Dosing mL/min Estimated GFR (MDRD) (>60) mL/min BUN/Creatinine Ratio (14-18) Glucose (70-99) mg/dL POC Glucose 142 H (70-99) mg/dL Calcium (8.5-10.1) mg/dL Magnesium (1.8-2.4) mg/dL Total Bilirubin (0.2-1.0) mg/dL AST (15-37) U/L ALT (16-63) U/L Alkaline Phosphatase (46-116) U/L C-Reactive Protein (<1.0) mg/dL Total Protein (6.4-8.2) g/dl Albumin (3.4-5.0) g/dl Globulin gm/dL Albumin/Globulin Ratio (1-2) Result Diagrams: 03/02/21 06:05 03/02/21 06:05 Sepsis Event Note - Evaluation Sepsis Screening Result: No Definite Risk - Focused Exam Vital Signs: Vital Signs Temp Pulse Resp BP BP Pulse Ox Pulse Ox 03/02/21 13:05 96 03/02/21 12:03 90 L 03/02/21 12:00 96.8 F L 99 24 H 117/80 95 03/02/21 11:46 92 L 03/02/21 11:30 93 L 03/02/21 11:19 97 03/02/21 09:43 94 L 03/02/21 08:45 95 03/02/21 08:00 97.2 F 103 H 25 H 108/80 93 L 03/02/21 06:00 95 03/02/21 05:52 98 03/02/21 05:00 89 L 03/02/21 04:13 113/61 99 03/02/21 04:12 98 03/02/21 04:00 96.6 F L 75 20 98 03/02/21 03:00 98 03/02/21 02:00 99 Pulse Ox 03/02/21 13:05 96 03/02/21 12:03 03/02/21 12:00 03/02/21 11:46 03/02/21 11:30 03/02/21 11:19 03/02/21 09:43 03/02/21 08:45 03/02/21 08:00 03/02/21 06:00 03/02/21 05:52 03/02/21 05:00 03/02/21 04:13 03/02/21 04:12 03/02/21 04:00 03/02/21 03:00 03/02/21 02:00 - Problem List & Annotations (1) Respiratory failure with hypoxia SNOMED Code(s): 69142873553830067 Code(s): J96.91 - RESPIRATORY FAILURE, UNSPECIFIED WITH HYPOXIA Status: Acute Current Visit: Yes (2) Hypoxia SNOMED Code(s): 470031692 Code(s): R09.02 - HYPOXEMIA Status: Acute Current Visit: Yes (3) Pneumonia due to COVID-19 virus SNOMED Code(s): 271129429658977574 Code(s): U07.1 - COVID-19; J12.82 - PNEUMONIA DUE TO CORONAVIRUS DISEASE 2019 Status: Acute Current Visit: Yes - Problem List Review Problem List Initiated/Reviewed/Updated: Yes - My Orders Last 24 Hours: My Active Orders 03/02/21 09:21 Echo Comp wo Cont [US] Routine 03/02/21 10:48 Patient Status [ADT] Routine 03/02/21 17:00 methylPREDNISolone Sod Succ [Solu-MEDROL] 40 mg IVPUSH Q12H - Plan Plan:: Patient is a 65-year-old male with a past medical history of asthma who presents to the emergency department with a chief complaint of low oxygen at home. Patient states that he began to lose his sense of taste and smell roughly a week to a week and a half ago before admission on 02/20. In the ER it was confirmed that he was COVID-19 positive. 1. Acute hypoxic respiratory failure in the setting of COVID-19. Covid 19 pneumonia Continue supplemental oxygen. Keep oxygen saturation greater than 87 % at all times Continue to wean Solu-Medrol. Decrease to 40 mg every 12 hours Completed remdesivir Continue Baricitinib 4mg daily Lovenox 90 mg twice daily Continue vitamin supplements with vitamin C and zinc. Encourage proning Incentive spirometry encouraged. Bronchodilators as necessary. CRP is less than 0.2 CBC, CMP and CRP daily 2. Hyperglycemia. hemoglobin A1c 6.3 Continue sliding scale insulin secondary to hyperglycemia from steroids. Patient does appear to be prediabetic. All other medical comorbidities are stable and nonactive conditions, will continue home medications at regular dose. CODE STATUS: Full code. DVT prophylaxis with enoxaparin. Prognosis: guarded. Length of stay greater then 96 hours due to slow response to treatment.
[2021-03-03] MEDS: methylPREDNISolone Sodium Succinate 40 MG/1 ML SDV IVPUSH SCH (05:50)
[2021-03-03] MEDS: Insulin Lispro 100 Unit/ML 3 ML KwikPen SUBCUT SCH ×4 (07:57→21:52)
[2021-03-03] MEDS: Zinc Sulfate 220 MG Cap PO SCH (08:01)
[2021-03-03] MEDS: Ascorbic Acid 500 MG Tab PO SCH ×2 (08:01→20:56)
[2021-03-03] MEDS: Cholecalciferol (Vitamin D3) 5,000 UNIT Cap PO SCH (08:01)
[2021-03-03] MEDS: Enoxaparin 100 MG/1 ML Syringe SUBCUT SCH ×2 (08:01→20:56)
[2021-03-03] MEDS: Rosuvastatin 10 MG Tab PO SCH (08:03)
--- NOTE | 2021-03-03 12:30 | PCM.PN ---
- General Info Date of Service: 03/03/21 Admission Dx/Problem (Free Text): Admission Diagnosis/Problem Admission Diagnosis/Problem Hypoxia Subjective Update: Patient continues to improve. He has been down as low as 3 L nasal cannula, but with activity needs 6 L. He still has a hacking cough that is nonproductive. Appetite is good. Functional Status: Reports: Pain Controlled - Review of Systems General: Reports: No Symptoms HEENT: Reports: No Symptoms Pulmonary: Reports: Cough Cardiovascular: Reports: Dyspnea on Exertion Gastrointestinal: Reports: No Symptoms Musculoskeletal: Reports: No Symptoms - Patient Data Vitals - Most Recent: Last Vital Signs Temp 96.7 F L 03/03/21 08:00 Pulse 90 03/03/21 12:00 Resp 18 03/03/21 12:00 BP 111/56 L 03/03/21 08:00 Pulse Ox 94 L 03/03/21 12:00 Weight - Most Recent: 196 lb 14.4 oz I&O - Last 24 Hours: Intake & Output 03/02/21 03/03/21 03/03/21 22:59 06:59 14:59 Intake Total 1140 350 240 Output Total 350 1000 Balance 790 -650 240 Lab Results Last 24 Hours: Laboratory Results - last 24 hr 03/02/21 03/02/21 03/02/21 Range/Units 12:33 16:27 19:57 WBC (4.23-9.07) K/mm3 RBC (4.63-6.08) M/mm3 Hgb (13.7-17.5) gm/dl Hct (40.1-51.0) % MCV (79.0-92.2) fl MCH (25.7-32.2) pg MCHC (32.2-35.5) g/dl RDW Std Deviation (35.1-43.9) fL Plt Count (163-337) K/mm3 MPV (9.4-12.3) fl Neut % (Auto) (34.0-67.9) % Lymph % (Auto) (21.8-53.1) % [place] % (Auto) (5.3-12.2) % Eos % (Auto) (0.8-7.0) Baso % (Auto) (0.1-1.2) % Neut # (Auto) (1.78-5.38) K/mm3 Lymph # (Auto) (1.32-3.57) K/mm3 [place] # (Auto) (0.30-0.82) K/mm3 Eos # (Auto) (0.04-0.54) K/mm3 Baso # (Auto) (0.01-0.08) K/mm3 Sodium (136-145) mEq/L Potassium (3.5-5.1) mEq/L Chloride (98-107) mEq/L Carbon Dioxide (21-32) mEq/L Anion Gap (5-15) BUN (7-18) mg/dL Creatinine (0.7-1.3) mg/dL Est Cr Clr Drug Dosing mL/min Estimated GFR (MDRD) (>60) mL/min BUN/Creatinine Ratio (14-18) Glucose (70-99) mg/dL POC Glucose 142 H 152 H 186 H (70-99) mg/dL Calcium (8.5-10.1) mg/dL Magnesium (1.8-2.4) mg/dL C-Reactive Protein (<1.0) mg/dL 03/03/21 03/03/21 03/03/21 Range/Units 05:48 08:25 08:25 WBC 15.08 H (4.23-9.07) K/mm3 RBC 4.51 L (4.63-6.08) M/mm3 Hgb 14.2 (13.7-17.5) gm/dl Hct 42.2 (40.1-51.0) % MCV 93.6 H (79.0-92.2) fl MCH 31.5 (25.7-32.2) pg MCHC 33.6 (32.2-35.5) g/dl RDW Std Deviation 40.6 (35.1-43.9) fL Plt Count 443 H (163-337) K/mm3 MPV 9.4 (9.4-12.3) fl Neut % (Auto) 91.3 H (34.0-67.9) % Lymph % (Auto) 2.7 L (21.8-53.1) % [place] % (Auto) 5.6 (5.3-12.2) % Eos % (Auto) 0.1 L (0.8-7.0) Baso % (Auto) 0.0 L (0.1-1.2) % Neut # (Auto) 13.79 H (1.78-5.38) K/mm3 Lymph # (Auto) 0.40 L (1.32-3.57) K/mm3 [place] # (Auto) 0.84 H (0.30-0.82) K/mm3 Eos # (Auto) 0.01 L (0.04-0.54) K/mm3 Baso # (Auto) 0.00 L (0.01-0.08) K/mm3 Sodium 136 (136-145) mEq/L Potassium 4.5 (3.5-5.1) mEq/L Chloride 98 (98-107) mEq/L Carbon Dioxide 30 (21-32) mEq/L Anion Gap 12.5 (5-15) BUN 24 H (7-18) mg/dL Creatinine 0.8 (0.7-1.3) mg/dL Est Cr Clr Drug Dosing 89.60 mL/min Estimated GFR (MDRD) > 60 (>60) mL/min BUN/Creatinine Ratio 30.0 H (14-18) Glucose 111 H (70-99) mg/dL POC Glucose 100 H (70-99) mg/dL Calcium 8.2 L (8.5-10.1) mg/dL Magnesium 2.2 (1.8-2.4) mg/dL C-Reactive Protein <0.2 (<1.0) mg/dL Med Orders - Current: Current Medications Acetaminophen (Acetaminophen 325 Mg Tab) 650 mg PO Q4H PRN PRN Reason: Fever Greater Than 101 Last Admin: 03/01/21 20:50 Dose: 650 mg Documented by: Albuterol/Ipratropium (Albuterol/Ipratropium 3.0-0.5 Mg/3 Ml Neb Soln) 3 ml NEB Q4HRRT PRN PRN Reason: Shortness of Breath Last Admin: 03/02/21 05:49 Dose: 3 ml Documented by: Ascorbic Acid (Ascorbic Acid 500 Mg Tab) 500 mg PO BID [facility] Last Admin: 03/03/21 08:01 Dose: 500 mg Documented by: Baricitinib (Baricitinib 2 Mg Tab) 4 mg PO DAILY [facility] Stop: 03/07/21 09:01 Last Admin: 03/03/21 08:02 Dose: 4 mg Documented by: Benzonatate (Benzonatate 100 Mg Cap) 100 mg PO Q8H PRN PRN Reason: Cough Last Admin: 03/02/21 05:07 Dose: 100 mg Documented by: Cholecalciferol (Cholecalciferol (Vitamin D3) 5,000 Unit Cap) 5,000 unit PO DAILY [facility] Last Admin: 03/03/21 08:01 Dose: 5,000 unit Documented by: Enoxaparin Sodium (Enoxaparin 100 Mg/1 Ml Syringe) 90 mg SUBCUT BID [facility] Last Admin: 03/03/21 08:01 Dose: 90 mg Documented by: Guaifenesin/Dextromethorphan (Guaifenesin/Dextromethorphan 100-10 Mg/5 Ml Soln 5 Ml Cup) 5 ml PO Q6H PRN PRN Reason: Cough Last Admin: 03/02/21 05:07 Dose: 5 ml Documented by: Insulin Human Lispro (Insulin Lispro 100 Unit/Ml 3 Ml Kwikpen) 0 unit SUBCUT Q IDACANDBED [facility]; Protocol Last Admin: 03/03/21 07:57 Dose: Not Given Documented by: Methylprednisolone Sodium Succinate (Methylprednisolone Sodium Succinate 40 Mg/1 Ml Sdv) 40 mg IVPUSH DAILY [facility] Rosuvastatin Calcium (Rosuvastatin 10 Mg Tab) 5 mg PO DAILY [facility] Last Admin: 03/03/21 08:03 Dose: 5 mg Documented by: Sodium Chloride (Sodium Chloride 0.9% 10 Ml Syringe) 10 ml FLUSH ASDIRECTED PRN PRN Reason: Keep Vein Open Last Admin: 02/20/21 09:40 Dose: 10 ml Documented by: Zinc Sulfate (Zinc Sulfate 220 Mg Cap) 220 mg PO DAILY [facility] Last Admin: 03/03/21 08:01 Dose: 220 mg Documented by: Discontinued Medications Albuterol/Ipratropium (Albuterol/Ipratropium 3.0-0.5 Mg/3 Ml Neb Soln) 3 ml NEB ONETIME ONE Stop: 02/20/21 09:57 Last Admin: 02/20/21 10:24 Dose: 3 ml Documented by: Dexamethasone (Dexamethasone 4 Mg/Ml Sdv) 6 mg IVPUSH ONETIME ONE Stop: 02/20/21 12:16 Last Admin: 02/20/21 15:34 Dose: Not Given Documented by: Enoxaparin Sodium (Enoxaparin 40 Mg/0.4 Ml Syringe) 40 mg SUBCUT DAILY [facility] Last Admin: 02/21/21 08:20 Dose: 40 mg Documented by: Sodium Chloride (Normal Saline) 1,000 mls @ 1,000 mls/hr IV .BOLUS [facility] Last Admin: 02/20/21 09:40 Dose: 1,000 mls/hr Documented by: Remdesivir 200 mg/ Sodium (Chloride) 250 mls @ 250 mls/hr IV ONETIME ONE Stop: 02/20/21 13:39 Last Admin: 02/20/21 12:47 Dose: 250 mls/hr Documented by: Remdesivir 100 mg/ Sodium (Chloride) 100 mls @ 100 mls/hr IV Q24H [facility] Stop: 02/24/21 13:59 Last Admin: 02/24/21 12:30 Dose: 100 mls/hr Documented by: Methylprednisolone Sodium Succinate (Methylprednisolone Sodium Succinate 125 Mg/2 Ml Sdv) 125 mg IVPUSH ONETIME ONE Stop: 02/20/21 12:26 Last Admin: 02/20/21 12:45 Dose: 125 mg Documented by: Methylprednisolone Sodium Succinate (Methylprednisolone Sodium Succinate 40 Mg/1 Ml Sdv) 40 mg IVPUSH Q6H [facility] Last Admin: 02/22/21 06:41 Dose: 40 mg Documented by: Methylprednisolone Sodium Succinate (Methylprednisolone Sodium Succinate 125 Mg/2 Ml Sdv) 40 mg IVPUSH Q6H [facility] Last Admin: 02/23/21 06:00 Dose: 40 mg Documented by: Methylprednisolone Sodium Succinate (Methylprednisolone Sodium Succinate 125 Mg/2 Ml Sdv) 60 mg IVPUSH Q6H [facility] Last Admin: 02/26/21 08:11 Dose: 60 mg Documented by: Methylprednisolone Sodium Succinate (Methylprednisolone Sodium Succinate 40 Mg/1 Ml Sdv) 40 mg IVPUSH Q6H [facility] Last Admin: 02/27/21 08:03 Dose: 40 mg Documented by: Methylprednisolone Sodium Succinate (Methylprednisolone Sodium Succinate 40 Mg/1 Ml Sdv) 40 mg IVPUSH Q8H [facility] Last Admin: 03/02/21 05:07 Dose: 40 mg Documented by: Methylprednisolone Sodium Succinate (Methylprednisolone Sodium Succinate 40 Mg/1 Ml Sdv) 40 mg IVPUSH Q12H [facility] Last Admin: 03/03/21 05:50 Dose: 40 mg Documented by: - Exam Quality Assessment: Supplemental Oxygen General: Alert, Oriented HEENT: Pupils Equal, Mucous Membr. Moist/[place] Neck: Supple Lungs: Normal Respiratory Effort, Crackles (Bibasilar) Cardiovascular: Regular Rate, Regular Rhythm GI/Abdominal Exam: Normal Bowel Sounds, Soft, Non-Tender, No Distention Extremities: Normal Inspection, Normal Range of Motion, Non-Tender, No Pedal Edema, Normal Capillary Refill Skin: Warm, Dry, Intact Neurological: No New Focal Deficit Psy/Mental Status: Alert, Normal Affect, Normal Mood - Patient Data Lab Results Last 24 hrs: Laboratory Results - last 24 hr 03/02/21 03/02/21 03/02/21 Range/Units 12:33 16:27 19:57 WBC (4.23-9.07) K/mm3 RBC (4.63-6.08) M/mm3 Hgb (13.7-17.5) gm/dl Hct (40.1-51.0) % MCV (79.0-92.2) fl MCH (25.7-32.2) pg MCHC (32.2-35.5) g/dl RDW Std Deviation (35.1-43.9) fL Plt Count (163-337) K/mm3 MPV (9.4-12.3) fl Neut % (Auto) (34.0-67.9) % Lymph % (Auto) (21.8-53.1) % [place] % (Auto) (5.3-12.2) % Eos % (Auto) (0.8-7.0) Baso % (Auto) (0.1-1.2) % Neut # (Auto) (1.78-5.38) K/mm3 Lymph # (Auto) (1.32-3.57) K/mm3 [place] # (Auto) (0.30-0.82) K/mm3 Eos # (Auto) (0.04-0.54) K/mm3 Baso # (Auto) (0.01-0.08) K/mm3 Sodium (136-145) mEq/L Potassium (3.5-5.1) mEq/L Chloride (98-107) mEq/L Carbon Dioxide (21-32) mEq/L Anion Gap (5-15) BUN (7-18) mg/dL Creatinine (0.7-1.3) mg/dL Est Cr Clr Drug Dosing mL/min Estimated GFR (MDRD) (>60) mL/min BUN/Creatinine Ratio (14-18) Glucose (70-99) mg/dL POC Glucose 142 H 152 H 186 H (70-99) mg/dL Calcium (8.5-10.1) mg/dL Magnesium (1.8-2.4) mg/dL C-Reactive Protein (<1.0) mg/dL 03/03/21 03/03/21 03/03/21 Range/Units 05:48 08:25 08:25 WBC 15.08 H (4.23-9.07) K/mm3 RBC 4.51 L (4.63-6.08) M/mm3 Hgb 14.2 (13.7-17.5) gm/dl Hct 42.2 (40.1-51.0) % MCV 93.6 H (79.0-92.2) fl MCH 31.5 (25.7-32.2) pg MCHC 33.6 (32.2-35.5) g/dl RDW Std Deviation 40.6 (35.1-43.9) fL Plt Count 443 H (163-337) K/mm3 MPV 9.4 (9.4-12.3) fl Neut % (Auto) 91.3 H (34.0-67.9) % Lymph % (Auto) 2.7 L (21.8-53.1) % [place] % (Auto) 5.6 (5.3-12.2) % Eos % (Auto) 0.1 L (0.8-7.0) Baso % (Auto) 0.0 L (0.1-1.2) % Neut # (Auto) 13.79 H (1.78-5.38) K/mm3 Lymph # (Auto) 0.40 L (1.32-3.57) K/mm3 [place] # (Auto) 0.84 H (0.30-0.82) K/mm3 Eos # (Auto) 0.01 L (0.04-0.54) K/mm3 Baso # (Auto) 0.00 L (0.01-0.08) K/mm3 Sodium 136 (136-145) mEq/L Potassium 4.5 (3.5-5.1) mEq/L Chloride 98 (98-107) mEq/L Carbon Dioxide 30 (21-32) mEq/L Anion Gap 12.5 (5-15) BUN 24 H (7-18) mg/dL Creatinine 0.8 (0.7-1.3) mg/dL Est Cr Clr Drug Dosing 89.60 mL/min Estimated GFR (MDRD) > 60 (>60) mL/min BUN/Creatinine Ratio 30.0 H (14-18) Glucose 111 H (70-99) mg/dL POC Glucose 100 H (70-99) mg/dL Calcium 8.2 L (8.5-10.1) mg/dL Magnesium 2.2 (1.8-2.4) mg/dL C-Reactive Protein <0.2 (<1.0) mg/dL Result Diagrams: 03/03/21 08:25 03/03/21 08:25 Sepsis Event Note - Evaluation Sepsis Screening Result: No Definite Risk - Focused Exam Vital Signs: Vital Signs Temp Pulse Resp BP BP Pulse Ox 03/03/21 12:00 90 18 94 L 03/03/21 09:42 94 L 03/03/21 08:00 96.7 F L 96 111/56 L 91 L 03/03/21 04:00 96.8 F L 74 119/74 95 - Problem List & Annotations (1) Respiratory failure with hypoxia SNOMED Code(s): 37681451004438908 Code(s): J96.91 - RESPIRATORY FAILURE, UNSPECIFIED WITH HYPOXIA Status: Acute Current Visit: Yes (2) Hypoxia SNOMED Code(s): 117850451 Code(s): R09.02 - HYPOXEMIA Status: Acute Current Visit: Yes (3) Pneumonia due to COVID-19 virus SNOMED Code(s): 734010414523803929 Code(s): U07.1 - COVID-19; J12.82 - PNEUMONIA DUE TO CORONAVIRUS DISEASE 2019 Status: Acute Current Visit: Yes - Problem List Review Problem List Initiated/Reviewed/Updated: Yes - My Orders Last 24 Hours: My Active Orders 03/02/21 15:34 BLOOD CULTURE [MREF] Stat BLOOD CULTURE [MREF] Stat 03/03/21 12:20 CXR [Chest 1V Frontal] [CR] Routine 03/04/21 05:11 C-REACTIVE PROTEIN [CHEM] AM CBC WITH AUTO DIFF [HEME] AM CMP [COMPREHENSIVE METABOLIC PN,CMP] [CHEM] AM MAGNESIUM [CHEM] AM PHOSPHORUS [CHEM] AM 03/04/21 09:00 methylPREDNISolone Sod Succ [Solu-MEDROL] 40 mg IVPUSH DAILY - Plan Plan:: Patient is a 65-year-old male with a past medical history of asthma who presents to the emergency department with a chief complaint of low oxygen at home. Patient states that he began to lose his sense of taste and smell roughly a week to a week and a half ago before admission on 02/20. In the ER it was confirmed that he was COVID-19 positive. 1. Acute hypoxic respiratory failure in the setting of COVID-19. Covid 19 pneumonia Continue supplemental oxygen. Keep oxygen saturation greater than 87 % at all times Continue to wean Solu-Medrol. Decrease to 40 mg daily Completed remdesivir Continue Baricitinib 4mg daily Lovenox 90 mg twice daily Continue vitamin supplements with vitamin C and zinc. Encourage proning Incentive spirometry encouraged. Bronchodilators as necessary. White count increased to 15 overnight. C-reactive protein is still less than 0.2. This is likely secondary to steroid. Chest x-ray showed no change CRP is less than 0.2 CBC, CMP and CRP daily 2. Hyperglycemia. hemoglobin A1c 6.3 Continue sliding scale insulin secondary to hyperglycemia from steroids. Patient does appear to be prediabetic. All other medical comorbidities are stable and nonactive conditions, will continue home medications at regular dose. CODE STATUS: Full code. DVT prophylaxis with enoxaparin. Prognosis: guarded. Length of stay greater then 96 hours due to slow response to treatment.
--- NOTE | 2021-03-03 14:08 | CR ---
Chest: Frontal view of the chest was obtained. Comparison: Prior chest x-ray of 02/20/21. Patchy areas of increased density are seen throughout both sides of the chest compatible with COVID pneumonia. No definite change is seen from prior study. Heart size is slightly enlarged. Upper mediastinum is normal. Bony structures show nothing acute. Impression: 1. Stable chest x-ray from prior study. 2. No acute change is otherwise seen. Diagnostic code #3
[2021-03-03] MEDS: Albuterol/Ipratropium 3.0-0.5 MG/3 ML Neb Soln NEB PRN ×2 (16:40→21:11)
[2021-03-04] MEDS: Insulin Lispro 100 Unit/ML 3 ML KwikPen SUBCUT SCH ×2 (07:26→11:58)
[2021-03-04] MEDS: Enoxaparin 100 MG/1 ML Syringe SUBCUT SCH (08:06)
[2021-03-04] MEDS: Cholecalciferol (Vitamin D3) 5,000 UNIT Cap PO SCH (08:07)
[2021-03-04] MEDS: Zinc Sulfate 220 MG Cap PO SCH (08:07)
[2021-03-04] MEDS: Ascorbic Acid 500 MG Tab PO SCH (08:07)
[2021-03-04] MEDS: Rosuvastatin 10 MG Tab PO SCH (08:07)
[2021-03-04] MEDS ORDERED: methylPREDNISolone Sodium Succinate 40 MG/1 ML SDV IVPUSH SCH (09:00)
--- NOTE | 2021-03-04 13:23 | PCM.DCSUM1 ---
Discharge Summary - Hospital Course HPI Initial Comments: Patient is a 65-year-old male with a past medical history as listed below which does include asthma who presents to the emergency department with a chief complaint of low oxygen at home. Patient states that he began to lose his sense of taste and smell roughly a week to a week and a half ago. At that point it was his only symptom. Since then he has gradually felt some heavy breathing at times mostly with activity. He has denied any chest pain, chest pressure or pleurisy. No abdominal complaints. No changes in eating habits or bowel habits. No recent sick contacts or travel. The patient is unvaccinated against COVID-19. He has also experienced a rather dry cough and feels as if there is phlegm present but is simply incapable of coughing it up. He bought an oximeter earlier in the week and it was noted that despite his shortness of breath he was still having O2 saturations in the mid 90s. Yesterday it dropped to 91, and then today upon check he was found to be in the mid 80s. At that point he thought it best to present to the hospital for further evaluation. In the ER it was confirmed that he was COVID-19 positive. Chest x-ray was notable for bilateral infiltrates consistent with COVID-19. The patient was hypoxic and was requiring 2 to 3 L of supplemental oxygen to stay above 92%. He was not toxic appearing. Remdesivir and steroids were introduced in the emergency department before being referred to the internal medicine service for further management. A 14 point review of systems was reviewed with the patient entirely and only pertinent for the above information. Assessment/Plan Comment:: 65-year-old male with a past medical history as listed above who presents to the emergency department with a chief complaint of low oxygen on his oximeter; found to be COVID-19 positive. 1. Acute hypoxic respiratory failure in the setting of COVID-19. Admit to the hospitalist service for further management. Continue supplemental oxygen as needed and wean as tolerated or advance as tolerated. RT consult. Continue high-dose Solu-Medrol. Remdesivir protocol. Continue vitamin supplements with vitamin C and zinc. Depending on his clinical course will evaluate for monoclonal antibodies/DMARDs. Encourage proning Incentive spirometry encouraged. Bronchodilators as necessary. 2. Hyperglycemia. We will check hemoglobin A1c. Invoke hospital hyperglycemia protocol if found to be diabetic. All other medical comorbidities are stable and nonactive conditions, will continue home medications at regular dose. CODE STATUS: Full code. DVT prophylaxis with enoxaparin. - Mortality Measure Prognosis:: Good Diagnosis: Stroke: No - Discharge Data Discharge Date: 03/04/21 Discharge Disposition: Home, Self-Care 01 Condition: Good - Referral to Home Health Primary Care Physician: Juan Manuel Chappell MD - Discharge Diagnosis/Problem(s) (1) Respiratory failure with hypoxia SNOMED Code(s): 78071789802636348 ICD Code: J96.91 - RESPIRATORY FAILURE, UNSPECIFIED WITH HYPOXIA Status: Acute Current Visit: Yes (2) Hypoxia SNOMED Code(s): 556080634 ICD Code: R09.02 - HYPOXEMIA Status: Acute Current Visit: Yes (3) Pneumonia due to COVID-19 virus SNOMED Code(s): 872396112937666976 ICD Code: U07.1 - COVID-19; J12.82 - PNEUMONIA DUE TO CORONAVIRUS DISEASE 2018 Status: Acute Current Visit: Yes - Patient Summary/Data Consults: Consultations 02/20/21 12:45 Respiratory Care Assess and Treatment [CONS] Routine 02/20/21 16:59 Consult to Diabetic Nurse Specialist [CONS] Routine Hospital Course: Patient ultimately was placed on high flow nasal cannula and was titrated up to the maximum of 60 L and 100% FiO2. Patient had high-dose Solu-Medrol started, remdesivir, and baricitinib. He was placed on therapeutic Lovenox 90 mg twice daily. Patient had a slow and steady recovery over a 12-day. 3 days prior to admission he was off of high flow nasal cannula and was weaned down to 2 L nasal cannula at rest and 4 L nasal cannula with activity on discharge. He will be discharged on a Medrol Dosepak. He can continue on his vitamin supplementation at his own leisure. Of note, he did have hyperglycemia and his hemoglobin A1c was 6.3. Patient's blood sugars were fairly well controlled in the low 100s up to the 150s. He should have follow-up with his primary care provider to determine long-term treatment of prediabetes. - Patient Instructions Diet: Diabetic Diet Activity: As Tolerated Driving: Do Not Drive Showering/Bathing: May Shower Other/Special Instructions: Please continue and finish methylprednisolone. You were on IV methylprednisolone in the hospital and will be sent home on a tapering oral dose. You are also being sent home on supplemental oxygen. Please wear this at all times and coordinate with your primary care provider weaning and ultimately stopping the oxygen. During your hospitalization you were found to have a hemoglobin A1c of 6.3. This is a representation of your blood sugars over 3 months and places you in the prediabetes range. This will need to be followed up with your primary care provider. If your oxygenation worsens or you become more symptomatic please return to the emergency department. - Discharge Plan *PRESCRIPTION DRUG MONITORING PROGRAM REVIEWED*: No *COPY OF PRESCRIPTION DRUG MONITORING REPORT IN PATIENT [place]: No Prescriptions/Med Rec: methylPREDNISolone [Medrol Dose Pack] See Taper PO DAILY #20 dospk Benzonatate [Tessalon Perles] 100 mg PO Q8H PRN #30 cap PRN Reason: Cough Home Medications: Home Meds Cholecalciferol (Vitamin D3) [Vitamin D] 1 tab DAILY 02/20/21 [History] Rosuvastatin [Crestor] 5 mg PO DAILY 02/20/21 [History] Ubidecarenone [Co Q-10] 1 tab DAILY 02/20/21 [History] Benzonatate [Tessalon Perles] 100 mg PO Q8H PRN #30 cap 03/04/21 [Rx] methylPREDNISolone [Medrol Dose Pack] See Taper PO DAILY #20 dospk 03/04/21 [Rx] Oxygen Therapy Mode: Nasal Cannula Oxygen Flow Rate (L/min): 2 Patient Handouts: COVID-19, Sepsis, Diagnosis, Adult, COVID-19: How to Protect Yourself and Others - [facility] Forms: ED Department Discharge Referrals: Juan Manuel Jesus MD [Primary Care Provider] - 03/17/21 8:30 am (Pleases check in at 8:15) - Discharge Summary/Plan Comment DC Time >30 min.: Yes Total # of Minutes for Discharge Time: 40 Total time spent includes seeing the patient, doing discharge paperwork, and arranging care. - General Info Date of Service: 03/04/21 Admission Dx/Problem (Free Text: Admission Diagnosis/Problem Admission Diagnosis/Problem Hypoxia Subjective Update: Patient is feeling well. He is on 2 L nasal cannula at rest and needs 4 L with ambulation. Functional Status: Reports: Pain Controlled - Review of Systems General: Reports: No Symptoms HEENT: Reports: No Symptoms Pulmonary: Reports: Cough Cardiovascular: Reports: No Symptoms Gastrointestinal: Reports: No Symptoms Musculoskeletal: Reports: No Symptoms - Patient Data Vitals - Most Recent: Last Vital Signs Temp 96.9 F 03/04/21 12:00 Pulse 78 03/04/21 12:00 Resp 18 03/04/21 12:00 BP 115/57 L 03/04/21 12:00 Pulse Ox 95 03/04/21 12:00 Weight - Most Recent: 197 lb 4.8 oz I&O - Last 24 hours: Intake & Output 03/03/21 03/04/21 03/04/21 22:59 06:59 14:59 Intake Total 1100 300 Balance 1100 300 Lab Results - Last 24 hrs: Laboratory Results - last 24 hr 03/03/21 03/03/21 03/04/21 Range/Units 16:30 20:49 05:55 WBC 8.05 (4.23-9.07) K/mm3 RBC 4.13 L (4.63-6.08) M/mm3 Hgb 13.0 L (13.7-17.5) gm/dl Hct 39.0 L (40.1-51.0) % MCV 94.4 H (79.0-92.2) fl MCH 31.5 (25.7-32.2) pg MCHC 33.3 (32.2-35.5) g/dl RDW Std Deviation 40.6 (35.1-43.9) fL Plt Count 349 H D (163-337) K/mm3 MPV 9.8 (9.4-12.3) fl Neut % (Auto) 78.5 H (34.0-67.9) % Lymph % (Auto) 11.6 L (21.8-53.1) % [place] % (Auto) 8.3 (5.3-12.2) % Eos % (Auto) 1.2 (0.8-7.0) Baso % (Auto) 0.0 L (0.1-1.2) % Neut # (Auto) 6.32 H (1.78-5.38) K/mm3 Lymph # (Auto) 0.93 L (1.32-3.57) K/mm3 [place] # (Auto) 0.67 (0.30-0.82) K/mm3 Eos # (Auto) 0.10 (0.04-0.54) K/mm3 Baso # (Auto) 0.00 L (0.01-0.08) K/mm3 Sodium (136-145) mEq/L Potassium (3.5-5.1) mEq/L Chloride (98-107) mEq/L Carbon Dioxide (21-32) mEq/L Anion Gap (5-15) BUN (7-18) mg/dL Creatinine (0.7-1.3) mg/dL Est Cr Clr Drug Dosing mL/min Estimated GFR (MDRD) (>60) mL/min BUN/Creatinine Ratio (14-18) Glucose (70-99) mg/dL POC Glucose 149 H 110 H (70-99) mg/dL Calcium (8.5-10.1) mg/dL Phosphorus (2.6-4.7) mg/dL Magnesium (1.8-2.4) mg/dL Total Bilirubin (0.2-1.0) mg/dL AST (15-37) U/L ALT (16-63) U/L Alkaline Phosphatase (46-116) U/L C-Reactive Protein (<1.0) mg/dL Total Protein (6.4-8.2) g/dl Albumin (3.4-5.0) g/dl Globulin gm/dL Albumin/Globulin Ratio (1-2) 03/04/21 03/04/21 03/04/21 Range/Units 05:55 06:21 11:31 WBC (4.23-9.07) K/mm3 RBC (4.63-6.08) M/mm3 Hgb (13.7-17.5) gm/dl Hct (40.1-51.0) % MCV (79.0-92.2) fl MCH (25.7-32.2) pg MCHC (32.2-35.5) g/dl RDW Std Deviation (35.1-43.9) fL Plt Count (163-337) K/mm3 MPV (9.4-12.3) fl Neut % (Auto) (34.0-67.9) % Lymph % (Auto) (21.8-53.1) % [place] % (Auto) (5.3-12.2) % Eos % (Auto) (0.8-7.0) Baso % (Auto) (0.1-1.2) % Neut # (Auto) (1.78-5.38) K/mm3 Lymph # (Auto) (1.32-3.57) K/mm3 [place] # (Auto) (0.30-0.82) K/mm3 Eos # (Auto) (0.04-0.54) K/mm3 Baso # (Auto) (0.01-0.08) K/mm3 Sodium 137 (136-145) mEq/L Potassium 4.8 (3.5-5.1) mEq/L Chloride 100 (98-107) mEq/L Carbon Dioxide 31 (21-32) mEq/L Anion Gap 10.8 (5-15) BUN 25 H (7-18) mg/dL Creatinine 0.8 (0.7-1.3) mg/dL Est Cr Clr Drug Dosing 89.60 mL/min Estimated GFR (MDRD) > 60 (>60) mL/min BUN/Creatinine Ratio 31.3 H (14-18) Glucose 81 (70-99) mg/dL POC Glucose 82 138 H (70-99) mg/dL Calcium 8.1 L (8.5-10.1) mg/dL Phosphorus 3.8 (2.6-4.7) mg/dL Magnesium 2.2 (1.8-2.4) mg/dL Total Bilirubin 1.3 H (0.2-1.0) mg/dL AST 16 (15-37) U/L ALT 79 H (16-63) U/L Alkaline Phosphatase 42 L (46-116) U/L C-Reactive Protein <0.2 (<1.0) mg/dL Total Protein 5.3 L (6.4-8.2) g/dl Albumin 2.5 L (3.4-5.0) g/dl Globulin 2.8 gm/dL Albumin/Globulin Ratio 0.9 L (1-2) Med Orders - Current: Current Medications Acetaminophen (Acetaminophen 325 Mg Tab) 650 mg PO Q4H PRN PRN Reason: Fever Greater Than 101 Last Admin: 03/01/21 20:50 Dose: 650 mg Documented by: Albuterol/Ipratropium (Albuterol/Ipratropium 3.0-0.5 Mg/3 Ml Neb Soln) 3 ml NEB Q4HRRT PRN PRN Reason: Shortness of Breath Last Admin: 03/03/21 21:11 Dose: 3 ml Documented by: Ascorbic Acid (Ascorbic Acid 500 Mg Tab) 500 mg PO BID [facility] Last Admin: 03/04/21 08:07 Dose: 500 mg Documented by: Baricitinib (Baricitinib 2 Mg Tab) 4 mg PO DAILY [facility] Stop: 03/07/21 09:01 Last Admin: 03/04/21 08:07 Dose: 4 mg Documented by: Benzonatate (Benzonatate 100 Mg Cap) 100 mg PO Q8H PRN PRN Reason: Cough Last Admin: 03/02/21 05:07 Dose: 100 mg Documented by: Cholecalciferol (Cholecalciferol (Vitamin D3) 5,000 Unit Cap) 5,000 unit PO DAILY [facility] Last Admin: 03/04/21 08:07 Dose: 5,000 unit Documented by: Enoxaparin Sodium (Enoxaparin 100 Mg/1 Ml Syringe) 90 mg SUBCUT BID [facility] Last Admin: 03/04/21 08:06 Dose: 90 mg Documented by: Guaifenesin/Dextromethorphan (Guaifenesin/Dextromethorphan 100-10 Mg/5 Ml Soln 5 Ml Cup) 5 ml PO Q6H PRN PRN Reason: Cough Last Admin: 03/02/21 05:07 Dose: 5 ml Documented by: Insulin Human Lispro (Insulin Lispro 100 Unit/Ml 3 Ml Kwikpen) 0 unit SUBCUT QIDACANDBED [facility]; Protocol Last Admin: 03/04/21 11:58 Dose: Not Given Documented by: Methylprednisolone Sodium Succinate (Methylprednisolone Sodium Succinate 40 Mg/1 Ml Sdv) 40 mg IVPUSH DAILY [facility] Last Admin: 03/04/21 08:09 Dose: 40 mg Documented by: Rosuvastatin Calcium (Rosuvastatin 10 Mg Tab) 5 mg PO DAILY [facility] Last Admin: 03/04/21 08:07 Dose: 5 mg Documented by: Sodium Chloride (Sodium Chloride 0.9% 10 Ml Syringe) 10 ml FLUSH ASDIRECTED PRN PRN Reason: Keep Vein Open Last Admin: 02/20/21 09:40 Dose: 10 ml Documented by: Zinc Sulfate (Zinc Sulfate 220 Mg Cap) 220 mg PO DAILY [facility] Last Admin: 03/04/21 08:07 Dose: 220 mg Documented by: Discontinued Medications Albuterol/Ipratropium (Albuterol/Ipratropium 3.0-0.5 Mg/3 Ml Neb Soln) 3 ml NEB ONETIME ONE Stop: 02/20/21 09:57 Last Admin: 02/20/21 10:24 Dose: 3 ml Documented by: Dexamethasone (Dexamethasone 4 Mg/Ml Sdv) 6 mg IVPUSH ONETIME ONE Stop: 02/20/21 12:16 Last Admin: 02/20/21 15:34 Dose: Not Given Documented by: Enoxaparin Sodium (Enoxaparin 40 Mg/0.4 Ml Syringe) 40 mg SUBCUT DAILY [facility] Last Admin: 02/21/21 08:20 Dose: 40 mg Documented by: Sodium Chloride (Normal Saline) 1,000 mls @ 1,000 mls/hr IV .BOLUS [facility] Last Admin: 02/20/21 09:40 Dose: 1,000 mls/hr Documented by: Remdesivir 200 mg/ Sodium (Chloride) 250 mls @ 250 mls/hr IV ONETIME ONE Stop: 02/20/21 13:39 Last Admin: 02/20/21 12:47 Dose: 250 mls/hr Documented by: Remdesivir 100 mg/ Sodium (Chloride) 100 mls @ 100 mls/hr IV Q24H [facility] Stop: 02/24/21 13:59 Last Admin: 02/24/21 12:30 Dose: 100 mls/hr Documented by: Methylprednisolone Sodium Succinate (Methylprednisolone Sodium Succinate 125 Mg/2 Ml Sdv) 125 mg IVPUSH ONETIME ONE Stop: 02/20/21 12:26 Last Admin: 02/20/21 12:45 Dose: 125 mg Documented by: Methylprednisolone Sodium Succinate (Methylprednisolone Sodium Succinate 40 Mg/1 Ml Sdv) 40 mg IVPUSH Q6H [facility] Last Admin: 02/22/21 06:41 Dose: 40 mg Documented by: Methylprednisolone Sodium Succinate (Methylprednisolone Sodium Succinate 125 Mg/ 2 Ml Sdv) 40 mg IVPUSH Q6H [facility] Last Admin: 02/23/21 06:00 Dose: 40 mg Documented by: Methylprednisolone Sodium Succinate (Methylprednisolone Sodium Succinate 125 Mg/2 Ml Sdv) 60 mg IVPUSH Q6H [facility] Last Admin: 02/26/21 08:11 Dose: 60 mg Documented by: Methylprednisolone Sodium Succinate (Methylprednisolone Sodium Succinate 40 Mg/1 Ml Sdv) 40 mg IVPUSH Q6H [facility] Last Admin: 02/27/21 08:03 Dose: 40 mg Documented by: Methylprednisolone Sodium Succinate (Methylprednisolone Sodium Succinate 40 Mg/1 Ml Sdv) 40 mg IVPUSH Q8H [facility] Last Admin: 03/02/21 05:07 Dose: 40 mg Documented by: Methylprednisolone Sodium Succinate (Methylprednisolone Sodium Succinate 40 Mg/1 Ml Sdv) 40 mg IVPUSH Q12H [facility] Last Admin: 03/03/21 05:50 Dose: 40 mg Documented by: - Exam Quality Assessment: Reports: Supplemental Oxygen General: Reports: Alert, Oriented HEENT: Reports: Pupils Equal, Mucous Membr. Moist/[place] Neck: Reports: Supple Lungs: Reports: Normal Respiratory Effort, Crackles (Bibasilar) Cardiovascular: Reports: Regular Rate, Regular Rhythm GI/Abdominal Exam: Normal Bowel Sounds, Soft, Non-Tender, No Distention Extremities: Normal Inspection, Normal Range of Motion, Non-Tender, No Pedal Edema, Normal Capillary Refill Skin: Reports: Warm, Dry, Intact Neurological: Reports: No New Focal Deficit Psy/Mental Status: Reports: Alert, Normal Affect, Normal Mood
== END 2021-03-04 15:36 | disposition home or self-care (01) | DRG 177 ==
LOC: JD.ED 09:24 → JD.MS 12:42 → UNDOADMIN 13:12 → JD.ICU 02-22 11:06
PROVIDERS: ADMIT Hospitalist; ATTEND Hospitalist
PROC: XW033E5 Introduction of Remdesivir Anti-infective into Peripheral Vein, Percutaneous Approach, New Technology Group 5 (ICD-10-PCS; principal; 2021-02-20)
PROC: 5A0955A Assistance with Respiratory Ventilation, Greater than 96 Consecutive Hours, High Flow/Velocity Cannula (ICD-10-PCS; principal; 2021-02-20)
PROC: XW0DXM6 Introduction of Baricitinib into Mouth and Pharynx, External Approach, New Technology Group 6 (ICD-10-PCS; principal; 2021-02-20)
PROC: 8E0ZXY6 Isolation (ICD-10-PCS; principal; 2021-02-20)
DX: R06.02 Shortness of breath (principal); U07.1 COVID-19; J12.82 Pneumonia due to coronavirus disease 2019; R09.02 Hypoxemia; J96.01 Acute respiratory failure with hypoxia; R73.9 Hyperglycemia, unspecified; E78.00 Pure hypercholesterolemia, unspecified; J45.909 Unspecified asthma, uncomplicated; Z20.822 Contact with and (suspected) exposure to COVID-19; Z79.899 Other long term (current) drug therapy
CPT/HCPCS: 0240U; 36415; 36600; 71045; 80048; 80053; 82728; 82803; 82947; 83036; 83605; 83615; 83735; 83880; 84100; 84132; 84145; 84484; 85025; 85379; 85610; 85730; 86140; 93005; 93306; 94640; 94667; 94668; 94762; 96365; 96372; 96375; 99285; 99231; 99232; 99233; 99239; A9270-GY; J1650; J1815; J2920; J2930; J7030; J7050; J7620-GY